=== PATIENT | female | born 1950 | race Caucasian/White ===

== ENCOUNTER → 2019-06-22 09:07 | Outpatient (BNVA) | payer MEDICARE, MEDICAID, SELFPAY | PROVIDERS: Family Provider Family Medicine; PCP Family Medicine; Visit Provider Family Medicine | DX: E11.9 Type 2 diabetes mellitus without complications (principal); Z79.4 Long term (current) use of insulin; F17.219 Nicotine dependence, cigarettes, with unspecified nicotine-induced disorders | CPT/HCPCS: 83036 ==

== ENCOUNTER 2019-10-02 18:15 | Emergency (ER) | payer MEDICARE, MEDICAID, SELFPAY ==
[2019-10-02 18:29] VITALS: BP 148/85; PULSE 93; RESP 14; TEMP 35.6; O2SAT 97; BMI 35.2
[2019-10-02] MEDS: insulin glargine 100 units/1 mL 80 UNIT SUBCUT (19:47)
[2019-10-02 20:09] VITALS: BP 144/82; PULSE 81; RESP 17; O2SAT 97
--- NOTE | 2019-10-02 23:28 | ED_ITS ---
HPI - General Adult General: Chief complaint: General Medical Stated complaint: needs insulin Time Seen by Provider: 10/02/19 18:51 History of Present Illness: HPI narrative: 68-year-old diabetic female. She presents stating that she is out of her Lantus insulin, and would like a refill, as she was unable to get her physician to call her in one this weekend. She has been asymptomatic. She states her blood sugar this morning was 200. Later in the day was in the 130s. Onset (ago): day(s) Severity: mild Quality: other Associated symptoms: Reports no associated symptoms; Deny dyspnea, nausea or vomiting Review of Systems Const: Denies: fever(s) or chills Resp: Denies: dyspnea or productive cough GI: Denies: abdominal pain, nausea or vomiting [facility] ED PFSH: Medical History (Updated 10/02/19 @ 19:27 by Bebeto Pascal DO) Bicuspid aortic valve COPD (chronic obstructive pulmonary disease) CVA (cerebral vascular accident) DDD (degenerative disc disease) Edema Endocarditis Essential hypertension Gait abnormality History of myocardial infarction Hyperlipidemia Hyperparathyroidism Hypothyroidism Migraine Obesity Schizoaffective disorder SOB (shortness of breath) Tobacco abuse Type 2 diabetes mellitus, with long-term current use of insulin Surgical History S/P angioplasty with stent S/P appendectomy S/P lumpectomy of breast S/P tonsillectomy Family History Father CAD (coronary artery disease) Cancer Mother CAD (coronary artery disease) Sister Cancer Other Diabetes Social History Smoking and tobacco status: current every day smoker cigarettes Packs smoked per day: 0.50 Alcohol intake: never Lives independently: Yes Marital status: Current occupational status: disabled Current gender identity: Female Physical Exam Const: GENERAL APPEARANCE: well developed ORIENTATION/CONSCIOUSNESS: Yes oriented to person, Yes oriented to place and Yes oriented to time HENMT: COMMON NORMALS: normocephalic, external ears normal and Normal external nose present HEAD & SCALP: normocephalic FACE & SINUS: normal facial exam NOSE: Normal external nose present and No nasal discharge present EXTERNAL EAR: Yes external ears normal MOUTH: tongue normal THROAT: posterior oropharynx normal; no peritonsillar mass Eye: COMMON NORMALS: Equal, round and reactive pupils present, EOMs intact bilaterally and conjunctivae normal EYELID: eyelids normal CONJUNCTIVA: Yes conjunctivae normal PUPIL: Yes Equal, round and reactive pupils present Neck/C-Spine: COMMON NORMALS: full ROM GENERAL: No tracheal deviation Chest: COMMONS NORMALS: normal inspection of the chest Resp: COMMON NORMALS: clear to auscultation bilaterally EFFORT & INSPECTION: No tachypneic, No respiratory distress, No retractions, No uses accessory muscles and No tracheal deviation AUSCULTATION: clear to auscultation bilaterally, no rhonchi, no wheezes and lung sounds not diminished Cardio: COMMON NORMALS: regular rate and regular rhythm RATE: regular rate RHYTHM: regular rhythm HEART SOUNDS: no murmurs PERIPHERAL PULSES: radial pulses present GI: INSPECTION: No abdominal distension AUSCULTATION: No Hyperactive bowel sounds present and No Hypoactive bowel sounds present Neuro: SENSORIUM/ORIENTATION: Yes oriented to person, Yes oriented to place and Yes oriented to time Psych: COMMON NORMALS: mental status grossly normal Skin: COMMON NORMALS: no rashes or lesions noted GENERAL SKIN EXAM: no rashes or lesions noted Course Vital Signs: Vital signs: Vital Signs Temperature 96.0 F L 10/02/19 18:29 Pulse Rate 81 10/02/19 20:09 Respiratory Rate 17 10/02/19 20:09 Blood Pressure 144/82 10/02/19 20:09 Pulse Oximetry 97 10/02/19 20:09 Discharge Plan Discharge Patient Disposition: Home, Self-Care Clinical Impression: Type 2 diabetes mellitus, with long-term current use of insulin Qualifiers: Diabetes mellitus complication status: without complication Qualified Code(s): E11.9 - Type 2 diabetes mellitus without complications Condition: Stable Prescriptions: New Lantus Solostar U-100 Insulin 100 unit/mL (3 mL) insulin pen 80 unit SUBCUT DAILY Qty: 15 RF: 1 No Action nitroglycerin [Nitrostat] 0.4 mg tablet, sublingual 0.4 mg SUBLINGUAL Q5M PRNRF: 0 insulin lispro [Humalog U-100 Insulin] 100 unit/mL solution 15 unit SUBCUT TID RF: 0 metformin 500 mg tablet extended release 24 hr 500 mg PO BID Qty: 60 RF: 1 (DME) diabetic shoes Qty: 1 RF: 0 metoprolol tartrate 25 mg tablet 25 mg PO BID Qty: 60 RF: 3 clopidogrel 75 mg tablet 75 mg PO QDAY Qty: 30 RF: 3 levothyroxine 125 mcg capsule 125 mcg PO QDAY Qty: 30 RF: 3 isosorbide mononitrate 30 mg tablet extended release 24 hr 30 mg PO QAM Qty: 30 RF: 3 furosemide 40 mg tablet 40 mg PO QAM Qty: 30 RF: 3 prednisone 20 mg tablet 20 mg PO DAILY 5 Days Qty: 5 RF: 0 aspirin [Adult Low Dose Aspirin] 81 mg tablet,delayed release (DR/EC) 81 mg PO QDAY Qty: 30 RF: 5 rosuvastatin [Crestor] 40 mg tablet 40 mg PO DAILY Qty: 90 RF: 0 (DME) blood sugar diagnostic [Accu-Chek Alley Plus test strp] Strip See Rx Instructions .ROUTE .MEDSUPPLY Qty: 100 RF: 2 amlodipine 5 mg tablet 5 mg PO QDAY Qty: 30 RF: 1 Lantus Solostar U-100 Insulin 100 unit/mL (3 mL) insulin pen 68 unit SUBCUT DAILY Qty: 10 RF: 0 (DME) pen needle, diabetic [Ultra Thin Pen Needle] 32 gauge x 5/32 needle See Rx Instructions .ROUTE .MEDSUPPLY Qty: 200 RF: 0 sertraline [Zoloft] 100 mg tablet 200 mg PO .HS Qty: 60 RF: 1 Victoza 2-Georges 0.6 mg/0.1 mL (18 mg/3 mL) pen injector 1.8 mg SUBCUT DAILY Qty: 6 RF: 1 lisinopril 20 mg tablet 20 mg PO QDAY Qty: 90 RF: 0 pregabalin [Lyrica] 25 mg capsule 25 mg PO BID Qty: 60 RF: 0 Referrals: Blanca Maya DO [Physician] - Luciana Espinoza PA [Primary Care Provider] - Discharge Diet: Diabetic Discharge Activity: Resume usual activity Patient Instructions: Type 2 Diabetes Discharge Date/Time: 10/02/19 20:10 Coding Level of Care Code ED Care Support Representative for Josemanuelg Haritha
== END 2019-10-02 20:10 | disposition home or self-care (01) ==
PROVIDERS: Emergency Provider Emergency Medicine; PCP Physician Assistant
DX: E11.9 Type 2 diabetes mellitus without complications (principal); Z79.4 Long term (current) use of insulin; Z79.02 Long term (current) use of antithrombotics/antiplatelets; Z79.82 Long term (current) use of aspirin; J44.9 Chronic obstructive pulmonary disease, unspecified; Z86.73 Personal history of transient ischemic attack (TIA), and cerebral infarction without residual deficits; I10 Essential (primary) hypertension; I25.2 Old myocardial infarction; E78.5 Hyperlipidemia, unspecified; F17.210 Nicotine dependence, cigarettes, uncomplicated
CPT/HCPCS: 12345; 96372; 99282; J1815

== ENCOUNTER → 2019-10-11 10:12 | Outpatient (BNVA) | payer MEDICARE, MEDICAID, SELFPAY | PROVIDERS: PCP Physician Assistant; Referring Provider Family Medicine; Visit Provider Podiatrist Foot & Ankle Surgery | DX: M20.42 Other hammer toe(s) (acquired), left foot (principal); M21.42 Flat foot [pes planus] (acquired), left foot; L97.522 Non-pressure chronic ulcer of other part of left foot with fat layer exposed; B35.1 Tinea unguium; E11.69 Type 2 diabetes mellitus with other specified complication; M20.41 Other hammer toe(s) (acquired), right foot; E11.42 Type 2 diabetes mellitus with diabetic polyneuropathy; L60.3 Nail dystrophy; I73.9 Peripheral vascular disease, unspecified | CPT/HCPCS: 73630 ==

== ENCOUNTER 2019-10-25 08:39 | Outpatient (CLI) | payer MEDICARE, MEDICAID, SELFPAY ==
--- NOTE | 2019-10-25 08:57 | CT_ITS ---
WS: [id number] CTA scan of the head and neck. Additional two-dimensional coronal and sagittal reconstruction along w ith MIP images was performed. 10/25/2019 Clinical Data: TIA, HX OF CVA Comparison: CTA of the head and neck, 08/19/2017. DLP: 2008.[address] scans at [facility] use at least one of these dose optimization techniques: automat ed exposure control; mA and/or kV adjustment per patient size (includes targeted exams where dose is matched to clinical indication); or iterative reconstruction. Findings: The common carotid arteries bifurcate normally into the internal carotid arteries. The vertebral ed forrest are normal. There is no lymphadenopathy within the neck. The intracerebral circulation shows jolene t the internal carotid arteries bifurcate into the anterior and middle cerebral arteries. The basilar arterial system is normal. No aneurysms are seen. The [place] is intact. There is no prevertebral soft tissue swelling. The bones of the cervical spine and skull demonstrate no erosions. There is osteoarthritic change at the C4-C6 level. The intraorbital contents, paranasal sinuses, internal auditory canals and sella turcica are normal. 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 There is moderate ventricular dilatation without shift. No recent infarct or he morrhage is seen. The parotid glands are normal. The parapharyngeal areas are unremarkable. The laryn x is symmetrical. The thyroid gland enhancement of the right lobe and absence of the left lobe. CT/CT angio headneck* [id number] Impression: 1. No change in the normal intracranial arterial circulation of the neck and he ad. 2. 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 3. Absent left thyroid gland.
[2019-10-25] MEDS: iodixanol 320 mg/mL 100mL Btl IV (09:24)
== END 2019-10-25 08:40 | disposition home or self-care (01) ==
LOC: RADWPI 08:45
PROVIDERS: Family Provider Physician Assistant; PCP Physician Assistant; Visit Provider Physician Assistant
DX: G45.9 Transient cerebral ischemic attack, unspecified (principal); Z86.73 Personal history of transient ischemic attack (TIA), and cerebral infarction without residual deficits; E89.0 Postprocedural hypothyroidism
CPT/HCPCS: 70496; 70498; Q9967

== ENCOUNTER 2019-11-11 08:06 | Outpatient (CLI) | payer MEDICARE, MEDICAID, SELFPAY ==
--- NOTE | 2019-11-11 08:10 | CT_ITS ---
WS: [id number] CT CHEST WITH INTRAVENOUS CONTRAST HISTORY: PULMONARY NODULE TECHNIQUE: Contiguous 5 mm axial imaging performed on the thorax. Coronal and sagittal reformats are submitted. All CT scans at [facility] use at least one of these dose optimization techniq ues: automated exposure control; mA and/or kV adjustment per patient size (includes targeted exams wh ere dose is matched to clinical indication); or iterative reconstruction. CONTRAST: Visipaque 320; 95 mL IV. DLP: 987.01 mGycm COMPARISON: 07/11/2014 Lungs and central airway: Diffuse mild interstitial thickening and reticulation noted bilaterally. Be nign granuloma LEFT lower lobe. No suspicious masses. Pleura: Normal. No pleural effusion. Heart and pericardium: Normal size heart. No pericardial effusion. Mediastinum and umesh: No mediastinum or hilar adenopathy. Vessels: Mild atherosclerosis aorta. Normal sized pulmonary arteries. Chest wall and lower neck: 5 mm nodule RIGHT thyroid is stable. Upper abdomen: Mild hepatic steatosis. Hypointense nodule measuring 8 mm in the spleen is stable. Lob ulated LEFT adrenal mass of low-attenuation measures 2.0 cm and also stable. Parapelvic cyst upper po rtion of the LEFT kidney. Osseous structures: Mild increase in thoracic kyphosis. Mild anterior wedging of T3. CT/CT chest w con* [id number] IMPRESSION: 1. Stable mild interstitial lung disease since 2014 and benign LEFT lower lobe granuloma. 2. Stable RIGHT thyroid nodule. 3. Stable 2 cm mass in the LEFT adrenal gland.
[2019-11-11] MEDS: iodixanol 320 mg/mL 100mL Btl IV (08:28)
== END 2019-11-11 08:07 | disposition home or self-care (01) ==
PROVIDERS: Family Provider Physician Assistant; PCP Physician Assistant; Visit Provider Physician Assistant
DX: R91.1 Solitary pulmonary nodule (principal); E04.1 Nontoxic single thyroid nodule; E27.8 Other specified disorders of adrenal gland; J84.9 Interstitial pulmonary disease, unspecified
CPT/HCPCS: 71260; Q9967

== ENCOUNTER 2019-12-21 14:43 | Emergency (ER) | payer MEDICARE, MEDICAID, SELFPAY ==
[2019-12-21 14:54] VITALS: BP 127/74; PULSE 59; RESP 18; TEMP 37.1; O2SAT 98; BMI 33.5
--- NOTE | 2019-12-21 14:58 | ED_ITS ---
HPI - Weakness General: Chief complaint: Weakness Stated complaint: possible stroke symptoms Time Seen by Provider: 12/21/19 14:53 Source: patient Mode of arrival: ambulatory Limitations: no limitations History of Present Illness: HPI Narrative: Emily is a 69-year-old female brought in to the hospital for being drowsy and confused. The patient was believed to have woken up this way. Her route inspector who comes in and looks in on her in her home stated she has been confused and drowsy throughout most of the day. Patient denies any chest pain, shortness of breath, abdominal pain, diarrhea, headache or neck pain, fever, cough, shortness of breath, urinary symptoms or other complaints. When asked again she does admit to vomiting but states she vomited 3 times last week and twice this week. Patient overall has not a good historian and does not offer any further information. Associated symptoms: Reports nausea and vomiting; Denies chest pain, chills, confusion, melena, diaphoresis, dysuria, easy bruising, fever(s), headache(s) or syncope Review of Systems Const: Denies: fever(s), chills, body aches, fatigue, malaise or diaphoresis Eyes: Denies: change in vision, blurry vision, photophobia, eye discomfort, eye discharge or eye redness ENMT: Denies: throat pain, odynophagia, hoarseness, swelling of lips/tongue, ear or mastoid pain, ear discharge, change in hearing or nasal discharge Card: Denies: chest pain, palpitations, irregular heart rhythm, edema, lightheadedness, syncope, pre-syncope, dyspnea on exertion or orthopnea Resp: Denies: dyspnea, productive cough, non-productive cough, wheezing, hemoptysis or chest congestion GI: Reports: nausea and vomiting; Denies: abdominal pain, hematemesis, coffee ground emesis, heartburn, diarrhea, constipation, GI cramping, hematochezia or melena : Denies: flank pain, dysuria, urinary frequency, urinary urgency or hematuria Musc: Denies: neck pain, back pain, extremity pain, extremity swelling, joint pain, joint swelling, joint redness, joint warmth or joint stiffness Skin/Breast: Denies: rash, pruritus, erythema or skin tenderness Neuro: Denies: headache(s), numbness in extremities, weakness in extremities, sensory changes, lack of coordination, difficulty walking, dizziness, vertigo, confusion, Slurred speech present or seizure-like activity Riley/Lymph: Denies: easy bruising, easy bleeding, petechiae, purpura or enlarged lymph nodes All/Imm: Denies: urticaria, throat swelling, tongue swelling, facial swelling or acute wheezing PFSH ED PFSH: Medical History (Updated 12/21/19 @ 19:25 by Tatyana Jeong) Bicuspid aortic valve COPD (chronic obstructive pulmonary disease) CVA (cerebral vascular accident) DDD (degenerative disc disease) Edema Endocarditis Essential hypertension Gait abnormality History of myocardial infarction Hyperlipidemia Hyperparathyroidism Hypothyroidism Migraine Obesity Schizoaffective disorder SOB (shortness of breath) Tobacco abuse Type 2 diabetes mellitus, with long-term current use of insulin Surgical History S/P angioplasty with stent S/P appendectomy S/P lumpectomy of breast S/P tonsillectomy Family History Father CAD (coronary artery disease) Cancer Mother CAD (coronary artery disease) Sister Cancer Other Diabetes Social History Smoking and tobacco status: current every day smoker cigarettes Packs smoked per day: 0.50 Alcohol intake: never Lives independently: Yes Marital status: Current occupational status: disabled Current gender identity: Female Physical Exam Const: COMMON NORMALS: no acute distress, no limitations, healthy appearing and well nourished GENERAL APPEARANCE: cooperative, well kempt and well developed ORIENTATION/CONSCIOUSNESS: Yes awake, Yes oriented to person and Yes oriented to place; not oriented to time HENMT: COMMON NORMALS: normocephalic, atraumatic, external ears normal, EAC's normal and Normal external nose present HEAD & SCALP: normal to inspection, normocephalic and atraumatic FACE & SINUS: normal facial exam and face symmetric NOSE: Normal external nose present and Normal nares present EXTERNAL EAR: Yes external ears normal EXTERNAL AUDITORY CANAL: EAC's normal MOUTH: Normal oral and palatal mucosa present, lip normal and tongue normal Eye: COMMON NORMALS: Equal, round and reactive pupils present and conjunctivae normal GENERAL EYE: appearance normal, both eyes and all related structures ALIGNMENT: Yes alignment normal PERIORBITAL: periorbital findings normal EYELID: eyelids normal CONJUNCTIVA: Yes conjunctivae normal SCLERA: sclerae normal PUPIL: Yes Equal, round and reactive pupils present Neck/C-Spine: COMMON NORMALS: full ROM, no lymphadenopathy, supple, no meningeal signs and no JVD GENERAL: Yes normal visual inspection and Yes trachea midline Chest: COMMONS NORMALS: normal inspection of the chest and normal palpation of entire chest wall Resp: COMMON NORMALS: normal respiratory effort, No retractions, No use of accessory muscles and clear to auscultation bilaterally EFFORT & INSPECTION: Yes able to speak in complete sentences and Yes symmetric chest movement AUSCULTATION: clear to auscultation bilaterally, no crackles, no rales, no rhonchi and no wheezes Cardio: COMMON NORMALS: no JVD, regular rate, regular rhythm, S1 normal heart sound present and S2 normal heart sound present RATE: regular rate RHYTHM: regular rhythm HEART SOUNDS: S1 normal heart sound present, S2 normal heart sound present, no click, no gallops, no murmurs, no rubs and abnormal split S2 GI: COMMON NORMALS: Soft to palpation and No hepatosplenomegaly present PALPATION: Yes Soft to palpation, No Tenderness to palpation present (GI), No Guarding due to palpation present (GI), No Rigid due to palpation, Yes No hepatosplenomegaly present, No Hernia present, No Palpable mass present and No Pulsatile mass present : COMMON NORMALS: Yes no CVA tenderness BLADDER/KIDNEY EXAM: Yes no CVA tenderness EXTERNAL FEMALE EXAM: No Hernia present Back/Pelvis: COMMON NORMALS: no CVA tenderness, thoracic and lumbar spine normal to inspection, no thoracic nor lumbar tenderness and thoraco-lumbar ROM normal Extremity: COMMON NORMALS: normal to inspection, full ROM, capillary refill normal, no joint enlargement, no clubbing, cyanosis or edema and no calf tenderness Neuro: COMMON NORMALS: CN's II-XII intact bilaterally, moves all extremities, no focal motor deficits and no sensory deficits noted SENSORIUM/ORIENTATION: Yes oriented to person, Yes oriented to place and No oriented to time MENINGEAL SIGNS: Yes no meningeal signs SPEECH: speech normal Psych: COMMON NORMALS: mental status grossly normal, Normal thought process present, cooperative, normal affect, speech normal and activity/motor behavior normal APPEARANCE: Yes well kempt SPEECH: Yes normal speech THOUGHT PROCESS: Normal thought process present Skin: COMMON NORMALS: no rashes or lesions noted, turgor normal, no jaundice, no petechiae and no mottling GENERAL SKIN EXAM: no rashes or lesions noted and turgor normal Course Vital Signs: Vital signs: Vital Signs Temperature 98.7 F 12/21/19 14:54 Pulse Rate 62 12/21/19 21:22 Respiratory Rate 18 12/21/19 21:22 Blood Pressure 91/57 12/21/19 21:22 Pulse Oximetry 90 12/21/19 21:22 MDM - Weakness MDM Narrative: Medical decision making narrative: The patient has remained normoglycemic since being treated for her blood sugar. She is eaten many small snacks here and kept her blood sugar up with this. She declines admission. There are no sulfonylureas to cause her blood sugar to be continuing to go low. There is been a mixup with her medications and it does not sound like the patient is taking medications as she should be. I spoke with Dr. Espinoza who agrees to have her seen in the office in the morning and will review her diabetic medicines at that time. Until that time the patient is going to refrain from using anything for her diabetes. 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 Espinoza plans on talking with her about that at that visit. 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 I made the patient aware of all these findings but at this time she declines admission and wants to be discharged. Lab Data: Labs: Lab Results 12/21/19 12/21/19 12/21/19 Range/Units 15:10 15:10 15:10 WBC 12.4 H (4.0-10.0) 10^3/ uL RBC 4.97 (4.1-5.3) 10^6/u L Hgb 15.1 (11.5-15.3) g/dL Hct 45.0 (37.0-47.0) % MCV 90.5 (81-99) fL MCH 30.4 (28.0-34.0) pg MCHC 33.6 (30.0-36.0) g/dL RDW 13.1 (12.1-15.1) % Plt Count 225 (130-400) 10^3/c mm MPV 10.6 H (7.4-10.4) fL Neut % (Auto) 79.5 % Lymph % (Auto) 15.6 % [place] % (Auto) 4.4 % Eos % (Auto) 0.0 % Baso % (Auto) 0.2 % Neut # (Auto) 9.87 H (1.8-7.7) 10^3/u L Lymph # (Auto) 1.9 (0.8-4.8) 10^3/u L [place] # (Auto) 0.6 (0.2-0.9) 10^3/u L Eos # (Auto) 0.0 (0.0-0.8) 10^3/u L Baso # (Auto) 0.0 (0.0-0.1) 10^3/u L Nucleated RBC % (a uto) 0 % Nucleated RBCs # 0.0 /100WBC PT (12.1-14.9) SECO NDS INR (0.8-1.2) Specimen Type Sample Site ABG pH (7.35-7.45) ABG pCO2 (35-45) mmHg ABG pO2 (80.0-100.0) mmH g ABG HCO3 (22-26) mmol/L ABG Base Excess (-2.0-2.0) mmol/ L Shabbir Test Hematocrit (37-47) % O2 Delivery Device FiO2 % Counselling Psychologist ID Sodium 138 (136-145) mmol/L Potassium 4.2 (3.5-5.1) mmol/L Chloride 100 (98-107) mmol/L Carbon Dioxide 27 (22-29) mmol/L Anion Gap 15.2 (5-19) BUN 23 (8-23) mg/dL Creatinine 1.3 H (0.5-0.9) mg/dL GFR Calculation 40.9 L (90-130) mL/min Glucose 46 L (65-115) mg/dL POC Glucose (70-110) mg/dL Calculated Osmolal ity 280 L (285-295) mOsm/k g Lactic Acid (0.5-2.2) mmol/L Calcium 9.8 (8.5-10.5) mg/dL Magnesium 1.7 (1.7-2.3) mg/dL Total Bilirubin 0.4 (0.15-1.2) mg/dL AST 22 (0-32) U/L ALT 23 (0-33) U/L Alkaline Phosphata se 107 H (35-105) IU/L Ammonia 14 (11-51) umol/L Creatine Kinase 126 (26-192) U/L Troponin T Baselin e (0-10) ng/L Troponin T 120 Min te-moak (0-10) ng/L Delta Troponin T (0-10) ABS# Total Protein 6.9 (6.6-8.7) g/dL Albumin 4.2 (3.5-5.2) g/dL Globulin 2.7 (1.3-4.6) g/dL Lipase 100 H (13-60) U/L TSH 2.07 (0.27-4.20) uIU/ mL Urine Color (Yellow) Urine Appearance (CLEAR) Urine pH (5-7) Ur Specific Gravit y (1.005-1.030) Urine Protein (Negative) Urine Glucose (UA) (Normal) Urine Ketones (Negative) Urine Blood (Negative) Urine Nitrate (Negative) Urine Bilirubin (Negative) Urine Urobilinogen (Negative) mg/dL Ur Leukocyte Minerva ase (Negative) Urine RBC (0-2) /hpf Urine WBC (0-5) /hpf Ur Squamous Epith Cells (0-5) /hpf Amorphous Sediment Urine Bacteria (NONE) /hpf Urine Opiates Scre en (Negative) ng/mL Ur Barbiturates Sc reen (Negative) ng/mL Ur Phencyclidine S crn (Negative) ng/mL Ur Amphetamines Sc reen (Negative) ng/mL U Benzodiazepines Scrn (Negative) ng/mL Urine Cocaine Scre en (Negative) ng/mL U Marijuana (THC) Screen (Negative) ng/mL Serum Ketones Negative (Negative) Influenza Type A A g (Negative) Influenza Type B A g (Negative) 12/21/19 12/21/19 12/21/19 Range/Units 15:10 15:10 15:10 WBC (4.0-10.0) 10^3/ uL RBC (4.1-5.3) 10^6/u L Hgb (11.5-15.3) g/dL Hct (37.0-47.0) % MCV (81-99) fL MCH (28.0-34.0) pg MCHC (30.0-36.0) g/dL RDW (12.1-15.1) % Plt Count (130-400) 10^3/c mm MPV (7.4-10.4) fL Neut % (Auto) % Lymph % (Auto) % [place] % (Auto) % Eos % (Auto) % Baso % (Auto) % Neut # (Auto) (1.8-7.7) 10^3/u L Lymph # (Auto) (0.8-4.8) 10^3/u L [place] # (Auto) (0.2-0.9) 10^3/u L Eos # (Auto) (0.0-0.8) 10^3/u L Baso # (Auto) (0.0-0.1) 10^3/u L Nucleated RBC % (a uto) % Nucleated RBCs # /100WBC PT 12.80 (12.1-14.9) SECO NDS INR 0.94 (0.8-1.2) Specimen Type Sample Site ABG pH (7.35-7.45) ABG pCO2 (35-45) mmHg ABG pO2 (80.0-100.0) mmH g ABG HCO3 (22-26) mmol/L ABG Base Excess (-2.0-2.0) mmol/ L Shabbir Test Hematocrit (37-47) % O2 Delivery Device FiO2 % Counselling Psychologist ID Sodium (136-145) mmol/L Potassium (3.5-5.1) mmol/L Chloride (98-107) mmol/L Carbon Dioxide (22-29) mmol/L Anion Gap (5-19) BUN (8-23) mg/dL Creatinine (0.5-0.9) mg/dL GFR Calculation (90-130) mL/min Glucose (65-115) mg/dL POC Glucose (70-110) mg/dL Calculated Osmolal ity (285-295) mOsm/k g Lactic Acid 1.0 (0.5-2.2) mmol/L Calcium (8.5-10.5) mg/dL Magnesium (1.7-2.3) mg/dL Total Bilirubin (0.15-1.2) mg/dL AST (0-32) U/L ALT (0-33) U/L Alkaline Phosphata se (35-105) IU/L Ammonia (11-51) umol/L Creatine Kinase (26-192) U/L Troponin T Baselin e 21 H (0-10) ng/L Troponin T 120 Min te-moak (0-10) ng/L Delta Troponin T (0-10) ABS# Total Protein (6.6-8.7) g/dL Albumin (3.5-5.2) g/dL Globulin (1.3-4.6) g/dL Lipase (13-60) U/L TSH (0.27-4.20) uIU/ mL Urine Color (Yellow) Urine Appearance (CLEAR) Urine pH (5-7) Ur Specific Gravit y (1.005-1.030) Urine Protein (Negative) Urine Glucose (UA) (Normal) Urine Ketones (Negative) Urine Blood (Negative) Urine Nitrate (Negative) Urine Bilirubin (Negative) Urine Urobilinogen (Negative) mg/dL Ur Leukocyte Minerva ase (Negative) Urine RBC (0-2) /hpf Urine WBC (0-5) /hpf Ur Squamous Epith Cells (0-5) /hpf Amorphous Sediment Urine Bacteria (NONE) /hpf Urine Opiates Scre en (Negative) ng/mL Ur Barbiturates Sc reen (Negative) ng/mL Ur Phencyclidine S crn (Negative) ng/mL Ur Amphetamines Sc reen (Negative) ng/mL U Benzodiazepines Scrn (Negative) ng/mL Urine Cocaine Scre en (Negative) ng/mL U Marijuana (THC) Screen (Negative) ng/mL Serum Ketones (Negative) Influenza Type A A g (Negative) Influenza Type B A g (Negative) 12/21/19 12/21/19 12/21/19 Range/Units 15:31 15:57 16:45 WBC (4.0-10.0) 10^3/ uL RBC (4.1-5.3) 10^6/u L Hgb (11.5-15.3) g/dL Hct (37.0-47.0) % MCV (81-99) fL MCH (28.0-34.0) pg MCHC (30.0-36.0) g/dL RDW (12.1-15.1) % Plt Count (130-400) 10^3/c mm MPV (7.4-10.4) fL Neut % (Auto) % Lymph % (Auto) % [place] % (Auto) % Eos % (Auto) % Baso % (Auto) % Neut # (Auto) (1.8-7.7) 10^3/u L Lymph # (Auto) (0.8-4.8) 10^3/u L [place] # (Auto) (0.2-0.9) 10^3/u L Eos # (Auto) (0.0-0.8) 10^3/u L Baso # (Auto) (0.0-0.1) 10^3/u L Nucleated RBC % (a uto) % Nucleated RBCs # /100WBC PT (12.1-14.9) SECO NDS INR (0.8-1.2) Specimen Type Arterial Sample Site Brachial, right ABG pH 7.44 (7.35-7.45) ABG pCO2 38.8 (35-45) mmHg ABG pO2 65.4 L (80.0-100.0) mmH g ABG HCO3 26.2 H (22-26) mmol/L ABG Base Excess 2.0 (-2.0-2.0) mmol/ L Shabbir Test Pos Hematocrit 47.2 H (37-47) % O2 Delivery Device Room air FiO2 21.0 % Counselling Psychologist ID Jlg Sodium (136-145) mmol/L Potassium (3.5-5.1) mmol/L Chloride (98-107) mmol/L Carbon Dioxide (22-29) mmol/L Anion Gap (5-19) BUN (8-23) mg/dL Creatinine (0.5-0.9) mg/dL GFR Calculation (90-130) mL/min Glucose (65-115) mg/dL POC Glucose 39 104 (70-110) mg/dL Calculated Osmolal ity (285-295) mOsm/k g Lactic Acid (0.5-2.2) mmol/L Calcium (8.5-10.5) mg/dL Magnesium (1.7-2.3) mg/dL Total Bilirubin (0.15-1.2) mg/dL AST (0-32) U/L ALT (0-33) U/L Alkaline Phosphata se (35-105) IU/L Ammonia (11-51) umol/L Creatine Kinase (26-192) U/L Troponin T Baselin e (0-10) ng/L Troponin T 120 Min te-moak (0-10) ng/L Delta Troponin T (0-10) ABS# Total Protein (6.6-8.7) g/dL Albumin (3.5-5.2) g/dL Globulin (1.3-4.6) g/dL Lipase (13-60) U/L TSH (0.27-4.20) uIU/ mL Urine Color (Yellow) Urine Appearance (CLEAR) Urine pH (5-7) Ur Specific Gravit y (1.005-1.030) Urine Protein (Negative) Urine Glucose (UA) (Normal) Urine Ketones (Negative) Urine Blood (Negative) Urine Nitrate (Negative) Urine Bilirubin (Negative) Urine Urobilinogen (Negative) mg/dL Ur Leukocyte Minerva ase (Negative) Urine RBC (0-2) /hpf Urine WBC (0-5) /hpf Ur Squamous Epith Cells (0-5) /hpf Amorphous Sediment Urine Bacteria (NONE) /hpf Urine Opiates Scre en (Negative) ng/mL Ur Barbiturates Sc reen (Negative) ng/mL Ur Phencyclidine S crn (Negative) ng/mL Ur Amphetamines Sc reen (Negative) ng/mL U Benzodiazepines Scrn (Negative) ng/mL Urine Cocaine Scre en (Negative) ng/mL U Marijuana (THC) Screen (Negative) ng/mL Serum Ketones (Negative) Influenza Type A A g (Negative) Influenza Type B A g (Negative) 12/21/19 12/21/19 12/21/19 Range/Units 17:03 17:19 17:44 WBC (4.0-10.0) 10^3/ uL RBC (4.1-5.3) 10^6/u L Hgb (11.5-15.3) g/dL Hct (37.0-47.0) % MCV (81-99) fL MCH (28.0-34.0) pg MCHC (30.0-36.0) g/dL RDW (12.1-15.1) % Plt Count (130-400) 10^3/c mm MPV (7.4-10.4) fL Neut % (Auto) % Lymph % (Auto) % [place] % (Auto) % Eos % (Auto) % Baso % (Auto) % Neut # (Auto) (1.8-7.7) 10^3/u L Lymph # (Auto) (0.8-4.8) 10^3/u L [place] # (Auto) (0.2-0.9) 10^3/u L Eos # (Auto) (0.0-0.8) 10^3/u L Baso # (Auto) (0.0-0.1) 10^3/u L Nucleated RBC % (a uto) % Nucleated RBCs # /100WBC PT (12.1-14.9) SECO NDS INR (0.8-1.2) Specimen Type Sample Site ABG pH (7.35-7.45) ABG pCO2 (35-45) mmHg ABG pO2 (80.0-100.0) mmH g ABG HCO3 (22-26) mmol/L ABG Base Excess (-2.0-2.0) mmol/ L Shabbir Test Hematocrit (37-47) % O2 Delivery Device FiO2 % Counselling Psychologist ID Sodium (136-145) mmol/L Potassium (3.5-5.1) mmol/L Chloride (98-107) mmol/L Carbon Dioxide (22-29) mmol/L Anion Gap (5-19) BUN (8-23) mg/dL Creatinine (0.5-0.9) mg/dL GFR Calculation (90-130) mL/min Glucose (65-115) mg/dL POC Glucose (70-110) mg/dL Calculated Osmolal ity (285-295) mOsm/k g Lactic Acid (0.5-2.2) mmol/L Calcium (8.5-10.5) mg/dL Magnesium (1.7-2.3) mg/dL Total Bilirubin (0.15-1.2) mg/dL AST (0-32) U/L ALT (0-33) U/L Alkaline Phosphata se (35-105) IU/L Ammonia (11-51) umol/L Creatine Kinase (26-192) U/L Troponin T Baselin e (0-10) ng/L Troponin T 120 Min te-moak 21.87 H (0-10) ng/L Delta Troponin T 0.87 (0-10) ABS# Total Protein (6.6-8.7) g/dL Albumin (3.5-5.2) g/dL Globulin (1.3-4.6) g/dL Lipase (13-60) U/L TSH (0.27-4.20) uIU/ mL Urine Color Straw (Yellow) Urine Appearance Clear (CLEAR) Urine pH 7.0 (5-7) Ur Specific Gravit y 1.005 (1.005-1.030) Urine Protein Neg (Negative) Urine Glucose (UA) Norm (Normal) Urine Ketones Negative (Negative) Urine Blood Neg (Negative) Urine Nitrate Negative (Negative) Urine Bilirubin Neg (Negative) Urine Urobilinogen Norm (Negative) mg/dL Ur Leukocyte Minerva ase Negative (Negative) Urine RBC None (0-2) /hpf Urine WBC None (0-5) /hpf Ur Squamous Epith Cells 0-4 H (0-5) /hpf Amorphous Sediment Not Reportable Urine Bacteria Trace (NONE) /hpf Urine Opiates Scre en (Negative) ng/mL Ur Barbiturates Sc reen (Negative) ng/mL Ur Phencyclidine S crn (Negative) ng/mL Ur Amphetamines Sc reen (Negative) ng/mL U Benzodiazepines Scrn (Negative) ng/mL Urine Cocaine Scre en (Negative) ng/mL U Marijuana (THC) Screen (Negative) ng/mL Serum Ketones (Negative) Influenza Type A A g Negative (Negative) Influenza Type B A g Negative (Negative) 12/21/19 12/21/19 12/21/19 Range/Units 17:44 17:52 19:05 WBC (4.0-10.0) 10^3/ uL RBC (4.1-5.3) 10^6/u L Hgb (11.5-15.3) g/dL Hct (37.0-47.0) % MCV (81-99) fL MCH (28.0-34.0) pg MCHC (30.0-36.0) g/dL RDW (12.1-15.1) % Plt Count (130-400) 10^3/c mm MPV (7.4-10.4) fL Neut % (Auto) % Lymph % (Auto) % [place] % (Auto) % Eos % (Auto) % Baso % (Auto) % Neut # (Auto) (1.8-7.7) 10^3/u L Lymph # (Auto) (0.8-4.8) 10^3/u L [place] # (Auto) (0.2-0.9) 10^3/u L Eos # (Auto) (0.0-0.8) 10^3/u L Baso # (Auto) (0.0-0.1) 10^3/u L Nucleated RBC % (a uto) % Nucleated RBCs # /100WBC PT (12.1-14.9) SECO NDS INR (0.8-1.2) Specimen Type Sample Site ABG pH (7.35-7.45) ABG pCO2 (35-45) mmHg ABG pO2 (80.0-100.0) mmH g ABG HCO3 (22-26) mmol/L ABG Base Excess (-2.0-2.0) mmol/ L Shabbir Test Hematocrit (37-47) % O2 Delivery Device FiO2 % Counselling Psychologist ID Sodium (136-145) mmol/L Potassium (3.5-5.1) mmol/L Chloride (98-107) mmol/L Carbon Dioxide (22-29) mmol/L Anion Gap (5-19) BUN (8-23) mg/dL Creatinine (0.5-0.9) mg/dL GFR Calculation (90-130) mL/min Glucose (65-115) mg/dL POC Glucose 108 147 (70-110) mg/dL Calculated Osmolal ity (285-295) mOsm/k g Lactic Acid (0.5-2.2) mmol/L Calcium (8.5-10.5) mg/dL Magnesium (1.7-2.3) mg/dL Total Bilirubin (0.15-1.2) mg/dL AST (0-32) U/L ALT (0-33) U/L Alkaline Phosphata se (35-105) IU/L Ammonia (11-51) umol/L Creatine Kinase (26-192) U/L Troponin T Baselin e (0-10) ng/L Troponin T 120 Min te-moak (0-10) ng/L Delta Troponin T (0-10) ABS# Total Protein (6.6-8.7) g/dL Albumin (3.5-5.2) g/dL Globulin (1.3-4.6) g/dL Lipase (13-60) U/L TSH (0.27-4.20) uIU/ mL Urine Color (Yellow) Urine Appearance (CLEAR) Urine pH (5-7) Ur Specific Gravit y (1.005-1.030) Urine Protein (Negative) Urine Glucose (UA) (Normal) Urine Ketones (Negative) Urine Blood (Negative) Urine Nitrate (Negative) Urine Bilirubin (Negative) Urine Urobilinogen (Negative) mg/dL Ur Leukocyte Minerva ase (Negative) Urine RBC (0-2) /hpf Urine WBC (0-5) /hpf Ur Squamous Epith Cells (0-5) /hpf Amorphous Sediment Urine Bacteria (NONE) /hpf Urine Opiates Scre en Negative (Negative) ng/mL Ur Barbiturates Sc reen Negative (Negative) ng/mL Ur Phencyclidine S crn Negative (Negative) ng/mL Ur Amphetamines Sc reen Negative (Negative) ng/mL U Benzodiazepines Scrn Negative (Negative) ng/mL Urine Cocaine Scre en Negative (Negative) ng/mL U Marijuana (THC) Screen Negative (Negative) ng/mL Serum Ketones (Negative) Influenza Type A A g (Negative) Influenza Type B A g (Negative) Imaging Data^: CXR: Attestation: I personally reviewed and interpreted this imaging study as follows: My impression: No acute cardiopulmonary finding CT Head: Radiologist's impression: [place] [address] CT Scan Report Signed Patient: Emily Little Unit #: [id number] : [id number] Age/Sex: 69 / F ADM Date: 12/21/19 Loc: ER Room/Bed: Attending Dr: Ordering Provider/Ordering MD: Tatyana Jeong DO Date of Service: 12/21/19 Procedure(s): CT head wo con* [id number] Accession Number(s): [id number] Report Number: [id number] PROCEDURE INFORMATION: Exam: CT Head Without Contrast Exam date and time: 12/21/2019 4:09 PM Age: 69 years old Clinical indication: Altered mental status/memory loss TECHNIQUE: Imaging protocol: Computed tomography of the head without contrast. Radiation optimization: All CT scans at this facility use at least one of these dose optimization techniques: automated exposure control; mA and/or kV adjustment per patient size (includes targeted exams where dose is matched to clinical indication); or iterative reconstruction. COMPARISON: CT angio headneck* [id number] 10/25/2019 9:13 AM RADIATION DOSE METRICS: Total DLP (mGy-cm): 879.43 FINDINGS: Brain: There are mild periventricular and subcortical lucencies consistent with chronic microvascular ischemic changes. The martines-white differentiation is maintained. No hemorrhage. No edema. Ventricles: Normal. No ventriculomegaly. Bones/joints: Unremarkable. No acute fracture. Sinuses: Visualized sinuses are unremarkable. No fluid levels. Mastoid air cells: Visualized mastoid air cells are well aerated. Orbits: Bilateral cataract surgery. Soft tissues: Unremarkable. CT/CT head wo con* [id number] IMPRESSION: No acute intracranial abnormality. Chronic microvascular ischemic changes. Radiation Dose CTDIVOL = (mGy): DLP = 879.43 (mGy-cm) Dictated By: eDnys Pang MD Signed By: Denys Pang MD Signed Date/Time: 12/21/191709 DD/ 07 CT Abd/Pel: Attestation: I personally reviewed and interpreted this imaging study as follows: Radiologist's impression: [address] [address] [address] Scan Report Signed Patient: Emily Little Unit #: [id number] : 1950 Age/Sex: 69 / F ADM Date: 12/21/19 Loc: ER Room/Bed: Attending Dr: Ordering Provider/Ordering MD: Tatyana Jeong DO Date of Service: 12/21/19 Procedure(s): CT abdomen pelvis w con* [id number] Accession Number(s): [id number] Report Number: [id number] PROCEDURE INFORMATION: Exam: CT Abdomen And Pelvis With Contrast Exam date and time: 12/21/2019 4:09 PM Age: 69 years old Clinical indication: Abdominal tenderness; Additional info: Abdominal pain TECHNIQUE: Imaging protocol: Computed tomography of the abdomen and pelvis with intravenous contrast. Radiation optimization: All CT scans at this facility use at least one of these dose optimization techniques: automated exposure control; mA and/or kV adjustment per patient size (includes targeted exams where dose is matched to clinical indication); or iterative reconstruction. Contrast material: VISI 320; Contrast volume: 95 ml; Contrast route: INTRAVENOUS (IV); COMPARISON: CT Abdomen/Pelvis [facility] [address] 10/18/2015 3:05 PM RADIATION DOSE METRICS: Total DLP (mGy-cm): 754.57 FINDINGS: Lungs: Calcified granuloma at the left lung base. Liver: Normal. No mass. Gallbladder and bile ducts: Normal. No calcified stones. No ductal dilation. Pancreas: Normal. No ductal dilation. Spleen: Normal. No splenomegaly. Adrenals: 1.8 cm left adrenal adenoma. 3.1 cm cyst of the left kidney in the midpole region. Kidneys and ureters: See Adrenals finding. Stomach and bowel: Unremarkable. No obstruction. No mucosal thickening. Appendix: No evidence of appendicitis. Intraperitoneal space: Unremarkable. No free air. No significant fluid collection. Vasculature: Atherosclerotic calcification of the abdominal aorta and bilateral iliac vessels. Lymph nodes: Unremarkable. No enlarged lymph nodes. Bladder: Unremarkable as visualized. Reproductive: Right ovary is enlarged and measures 5.5 x 4.2 cm. Bones/joints: Degenerative changes of the spine. Soft tissues: Unremarkable. CT/CT abdomen pelvis w con* [id number] IMPRESSION: Right ovary is enlarged measuring 5.5 x 4.2 cm. Given patient's post menopausal status, Neoplasm cannot be excluded. Ultrasound of the pelvis is recommended. Low-density lesion in the pancreatic head measures 1.7 cm, previously 1.6 cm. MRI with and without contrast can be obtained for further evaluation and characterization of the lesion. Radiation Dose CTDIVOL = (mGy): DLP = 754.57 (mGy-cm) Dictated By: Denys Pang MD Signed By: Denys Pang MD Signed Date/Time: 12/21/191726 DD/ 24 US: My impression: Tech interpretation -right ovarian mass but no evidence of torsion. No free fluid. No other acute abnormalities. Please see formal report. EKG Data^: EKG 1: Attestation: I personally reviewed and interpreted this EKG as follows: EKG interpretation date: 12/21/19 EKG interpretation time: 14:58 Interpretation: Sinus bradycardia 54 beats a minute, LVH, nonspecific ST and T wave changes. Left axis deviation, no blocks, normal intervals. Discharge Plan Discharge Patient Disposition: Home Clinical Impression: Hypoglycemia, Ovarian mass, right, Pancreatic mass Condition: Stable Prescriptions: No Action nitroglycerin [Nitrostat] 0.4 mg tablet, sublingual 0.4 mg SUBLINGUAL Q5M PRN (Reason: Chest Pain) RF: 0 insulin lispro [Humalog U-100 Insulin] 100 unit/mL solution 20 unit SUBCUT TID RF: 0 metformin 500 mg tablet extended release 24 hr 500 mg PO BID Qty: 60 RF: 1 (DME) diabetic shoes Qty: 1 RF: 0 metoprolol tartrate 25 mg tablet 25 mg PO BID Qty: 60 RF: 3 isosorbide mononitrate 30 mg tablet extended release 24 hr 30 mg PO QAM Qty: 30 RF: 3 furosemide 40 mg tablet 40 mg PO QAM Qty: 30 RF: 3 trazodone 50 mg tablet 50 mg PO BEDTIME RF: 0 albuterol sulfate 2.5 mg /3 mL (0.083 %) solution for nebulization 2.5 mg INHALATION Q4H PRN (Reason: shortness of breath or wheezing) Qty: 90 RF: 0 rosuvastatin [Crestor] 40 mg tablet 40 mg PO DAILY Qty: 90 RF: 0 (DME) blood sugar diagnostic [Accu-Chek Alley Plus test strp] Strip See Rx Instructions .ROUTE .MEDSUPPLY Qty: 100 RF: 2 (DME) pen needle, diabetic [Ultra Thin Pen Needle] 32 gauge x 5/32 needle See Rx Instructions .ROUTE .MEDSUPPLY Qty: 200 RF: 0 Victoza 2-Georges 0.6 mg/0.1 mL (18 mg/3 mL) pen injector 1.8 mg SUBCUT DAILY Qty: 6 RF: 1 (DME) Diabetic Shoes See Rx Instructions .ROUTE .MEDSUPPLY Qty: 1 RF: 0 aspirin 325 mg Tablet 325 mg PO DAILY RF: 0 lisinopril 20 mg tablet 20 mg PO DAILY RF: 0 Zoloft 100 mg tablet 200 mg PO BEDTIME RF: 0 clopidogrel 75 mg tablet 75 mg PO DAILY RF: 0 amlodipine 5 mg tablet 5 mg PO DAILY RF: 0 Lantus Solostar U-100 Insulin 100 unit/mL (3 mL) insulin pen 80 unit SUBCUT BEDTIME RF: 0 levothyroxine 125 mcg capsule 125 mcg PO DAILY RF: 0 Discharge Orders: Discharge Order (Routine); Ordered 12/21/19 Ordered By: Tatyana Jeong Referrals: Luciana Espinoza PA [Primary Care Provider] - 1-3 days (Call first thing in the morning for an appointment to be seen by Luciana Espinoza. I have reviewed your findings and case tonkristan and she will see you in the office tomorrow for recheck. Call first thing in the morning for your appointment.) Discharge Diet: Advance as tolerated Discharge Activity: Increase activity as tolerated Patient Instructions: Ovarian Cyst (ED), Diabetic Hypoglycemia (ED) Activity Restrictions/Additional Instructions: Please return to the ER immediately for any of the signs or symptoms listed on your discharge instruction sheets, worsening/changing of your symptoms, you are not getting better as quickly as expected, or for ANY other cause or concerns. Do not take any insulin or any of your diabetic meds tonight. Call first thing in the morning for an appointment to be seen by Luciana Espinoza and she will review all of your diabetic medications with you. Once she has given you a plan on how to begin taking them again you can begin those medications. Eat frequent small meals and be certain to follow-up with Dr. Espinoza tomorrow. You can also discuss at that time of the mass found on your pancreas as well as your right ovarian mass. If you have any problems or feel like your blood sugar is getting low aga in please return to the ER immediately for recheck. Discharge Date/Time: 12/21/19 21:39 Coding Level of Care Code ED Product Development Actuary for Chg Fwd Exam Comprehensive
--- NOTE | 2019-12-21 14:59 | XRR_ITS ---
PROCEDURE INFORMATION: Exam: XR Chest, 1 View Exam date and time: 12/21/2019 3:19 PM Age: 69 years old Clinical indication: Other: AMS, stroke symptoms; Additional info: AMS, stroke symptoms, weakness TECHNIQUE: Imaging protocol: XR of the chest Views: 1 view. COMPARISON: CT chest w con* [id number] 11/11/2019 8:26 AM FINDINGS: Lungs: Calcified granuloma at the left lung base. Pleural space: Unremarkable. No pleural effusion. No pneumothorax. Heart/Mediastinum: Unremarkable. No cardiomegaly. Vasculature: Atherosclerotic calcification of the aortic arch. Bones/joints: Degenerative changes of the spine. XR/XR chest 1V portable [id number] IMPRESSION: No acute abnormality.
--- NOTE | 2019-12-21 15:01 | CTR_ITS ---
PROCEDURE INFORMATION: Exam: CT Head Without Contrast Exam date and time: 12/21/2019 4:09 PM Age: 69 years old Clinical indication: Altered mental status/memory loss TECHNIQUE: Imaging protocol: Computed tomography of the head without contrast. Radiation optimization: All CT scans at this facility use at least one of these dose optimization techniques: automated exposure control; mA and/or kV adjustment per patient size (includes targeted exams where dose is matched to clinical indication); or iterative reconstruction. COMPARISON: CT angio headneck* [id number] 10/25/2019 9:13 AM RADIATION DOSE METRICS: Total DLP (mGy-cm): 879.43 FINDINGS: Brain: There are mild periventricular and subcortical lucencies consistent with chronic microvascular ischemic changes. The martines-white differentiation is maintained. No hemorrhage. No edema. Ventricles: Normal. No ventriculomegaly. Bones/joints: Unremarkable. No acute fracture. Sinuses: Visualized sinuses are unremarkable. No fluid levels. Mastoid air cells: Visualized mastoid air cells are well aerated. Orbits: Bilateral cataract surgery. Soft tissues: Unremarkable. CT/CT head wo con* [id number] IMPRESSION: No acute intracranial abnormality. Chronic microvascular ischemic changes. Radiation Dose CTDIVOL = (mGy): DLP = 879.43 (mGy-cm)
--- NOTE | 2019-12-21 15:01 | CTR_ITS ---
PROCEDURE INFORMATION: Exam: CT Abdomen And Pelvis With Contrast Exam date and time: 12/21/2019 4:09 PM Age: 69 years old Clinical indication: Abdominal tenderness; Additional info: Abdominal pain TECHNIQUE: Imaging protocol: Computed tomography of the abdomen and pelvis with intravenous contrast. Radiation optimization: All CT scans at this facility use at least one of these dose optimization techniques: automated exposure control; mA and/or kV adjustment per patient size (includes targeted exams where dose is matched to clinical indication); or iterative reconstruction. Contrast material: VISI 320; Contrast volume: 95 ml; Contrast route: INTRAVENOUS (IV); COMPARISON: CT Abdomen/Pelvis o [id number] 10/18/2015 3:05 PM RADIATION DOSE METRICS: Total DLP (mGy-cm): 754.57 FINDINGS: Lungs: Calcified granuloma at the left lung base. Liver: Normal. No mass. Gallbladder and bile ducts: Normal. No calcified stones. No ductal dilation. Pancreas: Normal. No ductal dilation. Spleen: Normal. No splenomegaly. Adrenals: 1.8 cm left adrenal adenoma. 3.1 cm cyst of the left kidney in the midpole region. Kidneys and ureters: See Adrenals finding. Stomach and bowel: Unremarkable. No obstruction. No mucosal thickening. Appendix: No evidence of appendicitis. Intraperitoneal space: Unremarkable. No free air. No significant fluid collection. Vasculature: Atherosclerotic calcification of the abdominal aorta and bilateral iliac vessels. Lymph nodes: Unremarkable. No enlarged lymph nodes. Bladder: Unremarkable as visualized. Reproductive: Right ovary is enlarged and measures 5.5 x 4.2 cm. Bones/joints: Degenerative changes of the spine. Soft tissues: Unremarkable. CT/CT abdomen pelvis w con* [id number] IMPRESSION: Right ovary is enlarged measuring 5.5 x 4.2 cm. Given patient's post menopausal status, Neoplasm cannot be excluded. Ultrasound of the pelvis is recommended. Low-density lesion in the pancreatic head measures 1.7 cm, previously 1.6 cm. MRI with and without contrast can be obtained for further evaluation and characterization of the lesion. Radiation Dose CTDIVOL = (mGy): DLP = 754.57 (mGy-cm)
--- NOTE | 2019-12-21 15:01 | ECG_ITS ---
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 Measurements Intervals [place] Rate: 57 P: 44 OK: 137 QRS: -30 QRSD: 114 T: -15 QT: 450 QTc: 440 Interpretive Statements SINUS BRADYCARDIA BORDERLINE LEFT AXIS DEVIATION [QRS AXIS < -20] LEFT VENTRICULAR HYPERTROPHY AND ST-T CHANGE [VOLTAGE CRITERIA PLUS ST/T ABNORMALITY] Compared to ECG 07/26/2018 21:23:21 Sinus rhythm no longer present ST (T wave) deviation still present Electronically Signed On 12-21-2019 19:54:07 CDT by Teresa Melendez M.D. [id number]
[2019-12-21 15:27] LABS: Basophils % 0.2 %; Hemoglobin 15.1 g/dL (11.5-15.3); Lymphocytes # 1.9 10^3/uL (0.8-4.8); Lymphocytes % 15.6 %; Mean Corpuscular HGB Conc 33.6 g/dL (30.0-36.0); Mean Corpuscular Hemoglobin 30.4 pg (28.0-34.0); Mean Corpuscular Volume 90.5 fL (81-99); Mean Platelet Volume 10.6 fL (7.4-10.4); Monocytes # 0.6 10^3/uL (0.2-0.9); Monocytes % 4.4 %; Neutrophils # 9.87 10^3/uL (1.8-7.7); Neutrophils % 79.5 %; Nucleated Red Blood Cells % 0 %; Platelet Count 225 10^3/cmm (130-400); Red Blood Count 4.97 10^6/uL (4.1-5.3); Red Cell Distribution Width 13.1 % (12.1-15.1); White Blood Count 12.4 10^3/uL (4.0-10.0)
[2019-12-21 15:42] LABS: INR 0.94 (0.8-1.2)
[2019-12-21 15:44] LABS: ABG PCO2 38.8 mmHg (35-45); ABG PH Result 7.44 (7.35-7.45); Arterial Blood Gas Hematocrit 47.2 % (37-47); Blood Gas Allen Test Pos; Blood Gas Sample Site Brachial, right; Blood Gas Sample Type Arterial; HCO3 ABG 26.2 mmol/L (22-26); Oxygen Device ROOM AIR; PO2 ABG 65.4 mmHg (80.0-100.0)
[2019-12-21 15:47] LABS: Ammonia 14 umol/L (11-51); Troponin(5th) Baseline 21 ng/L (0-10)
[2019-12-21 15:54] LABS: Alanine Aminotransferase 23 U/L (0-33); Albumin Level 4.2 g/dL (3.5-5.2); Alkaline Phosphatase 107 IU/L (35-105); Anion Gap 15.2 (5-19); Aspartate Amino Transferase 22 U/L (0-32); Blood Urea Nitrogen 23 mg/dL (8-23); Calcium 9.8 mg/dL (8.5-10.5); Carbon Dioxide 27 mmol/L (22-29); Chloride 100 mmol/L (98-107); Creatine Phosphokinase 126 U/L (26-192); Globulin 2.7 g/dL (1.3-4.6); Glomerular Filtration Rate 40.9 mL/min (90-130); Glucose 46 mg/dL (65-115); Lipase 100 U/L (13-60); Magnesium 1.7 mg/dL (1.7-2.3); Osmolality Calculated 280 mOsm/kg (285-295); Potassium 4.2 mmol/L (3.5-5.1); Sodium 138 mmol/L (136-145); Thyroid Stimulating Hormone 2.07 uIU/mL (0.27-4.20); Total Bilirubin 0.4 mg/dL (0.15-1.2); Total Protein 6.9 g/dL (6.6-8.7)
[2019-12-21 16:01] LABS: Glucose Point of Care 39 mg/dL (70-110)
[2019-12-21] MEDS: dextrose 50% syringe 50 mL IVP (16:01)
[2019-12-21] MEDS: ondansetron 2 mg/ML SDV 2 mL 4 MG IVP (16:01)
[2019-12-21] MEDS: sodium chloride 0.9% 1,000 ML 100 ML IV (16:08)
[2019-12-21 16:22] LABS: Ketone (Acetest) Serum Negative (Negative)
[2019-12-21] MEDS: iodixanol 320 mg/mL 100mL Btl IV (16:31)
[2019-12-21 17:01] LABS: Glucose Point of Care 104 mg/dL (70-110)
--- NOTE | 2019-12-21 17:01 | ECG_ITS ---
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 Measurements Intervals [place] Rate: 61 P: 76 CT: 141 QRS: -36 QRSD: 104 T: -20 QT: 436 QTc: 440 Interpretive Statements SINUS RHYTHM LEFT AXIS DEVIATION [QRS AXIS < -30] PATTERN CONSISTENT WITH PULMONARY DISEASE INCOMPLETE RIGHT BUNDLE BRANCH BLOCK [90+ ms QRS DURATION, TERMINAL R IN V1/V2, 40+ ms S IN I/aVL/V4/V5/V6] LEFT VENTRICULAR HYPERTROPHY AND ST-T CHANGE [VOLTAGE CRITERIA PLUS ST/T ABNORMALITY] Compared to ECG 12/21/2019 14:58:09 Incomplete right bundle-branch block now present Sinus bradycardia no longer present ST (T wave) deviation still present Electronically Signed On 12-21-2019 20:10:09 CDT by Teresa Melendez M.D. [id number]
[2019-12-21 17:15] VITALS: BP 118/65; PULSE 61; RESP 18; O2SAT 90
--- NOTE | 2019-12-21 17:35 | US_ITS ---
WS: [id number] Pelvic ultrasound, 12/21/2019 Clinical Data: Pain Comparison: None. Findings: The uterus measures 5.74 cm x 3.2 cm x 3.6 cm. The left ovary measures 2.0 cm x 2.0 cm x 2.4 cm with no cysts or masses. The right ovary measures 5.2 cm x 4.8 cm x 3.5 cm with no cysts or masses. US/US pelvic complete* [id number] Impression: Negative pelvic ultrasound.
[2019-12-21 17:40] LABS: Troponin 5 2HR 21.87 ng/L (0-10); Troponin 5 2HR Delta 0.87 ABS# (0-10)
[2019-12-21 17:49] LABS: Influenza A by IFA Negative (Negative); Influenza B by IFA Negative (Negative)
[2019-12-21 17:55] LABS: Glucose Point of Care 108 mg/dL (70-110)
[2019-12-21 18:05] LABS: Amphetamines Screen Urine Negative (Negative); Barbiturates Screen Urine Negative (Negative); Benzodiazepines Screen Urine Negative (Negative); Cocaine Screen Urine Negative (Negative); Opiate Screen Urine Negative (Negative); PCP Screen Urine Negative (Negative); THC Screen Urine Negative (Negative)
[2019-12-21 18:07] LABS: Add Urine Culture? No; Bacteria Urine TRACE /hpf; Bilirubin Urine Neg (Negative); Blood Urine Neg (Negative); Glucose Urine UA Norm (Normal); Ketones Urine Negative (Negative); Leukocyte Esterase Urine Negative (Negative); Nitrate Urine Negative (Negative); Protein Urine Neg (Negative); Specific Gravity, Urine 1.005 (1.005-1.030); Squamous Epithelial Cell Urine 0-4 /hpf (0-5); Urine Appearance Clear (CLEAR); Urine Color Straw (Yellow); Urobilinogen Urine Norm (Negative)
[2019-12-21 19:09] LABS: Glucose Point of Care 147 mg/dL (70-110)
[2019-12-21 21:22] VITALS: BP 91/57; PULSE 62; RESP 18; O2SAT 90
== END 2019-12-21 21:39 | disposition home or self-care (01) ==
PROVIDERS: Emergency Provider Emergency Medicine; PCP Physician Assistant
DX: E16.2 Hypoglycemia, unspecified (principal); N83.9 Noninflammatory disorder of ovary, fallopian tube and broad ligament, unspecified; K86.9 Disease of pancreas, unspecified; Z79.4 Long term (current) use of insulin; Z79.82 Long term (current) use of aspirin; Z79.02 Long term (current) use of antithrombotics/antiplatelets; J44.9 Chronic obstructive pulmonary disease, unspecified; Z86.73 Personal history of transient ischemic attack (TIA), and cerebral infarction without residual deficits; I10 Essential (primary) hypertension; E78.5 Hyperlipidemia, unspecified; I25.2 Old myocardial infarction; E11.9 Type 2 diabetes mellitus without complications; F17.210 Nicotine dependence, cigarettes, uncomplicated; Z79.899 Other long term (current) drug therapy
CPT/HCPCS: 12345; 36415; 36416; 36600; 70450; 71045; 74177; 76856; 80053; 80306; 81001; 82009; 82140; 82550; 82803; 82962; 83605; 83690; 83735; 84443; 84484; 85025; 85610; 87040; 87804; 93005; 96361; 96374; 96375; 99283; 99284; J2405; J7030; Q9967

== ENCOUNTER 2019-12-23 15:04 | Emergency (ER) | payer MEDICARE, MEDICAID, SELFPAY ==
[2019-12-23 15:08] VITALS: BP 128/78; PULSE 63; RESP 18; O2SAT 96; BMI 27.8
--- NOTE | 2019-12-23 15:13 | ECG_ITS ---
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 Measurements Intervals [place] Rate: 64 P: 54 UT: 133 QRS: -39 QRSD: 114 T: 75 QT: 422 QTc: 437 Interpretive Statements SINUS RHYTHM LEFT AXIS DEVIATION [QRS AXIS < -30] PATTERN CONSISTENT WITH PULMONARY DISEASE LEFT VENTRICULAR HYPERTROPHY AND ST-T CHANGE [VOLTAGE CRITERIA PLUS ST/T ABNORMALITY] Compared to ECG 12/21/2019 17:18:59 Incomplete right bundle-branch block no longer present ST (T wave) deviation still present Electronically Signed On 12-24-2019 16:19:59 CDT by Harshad Dorsey M.D. [id number]
--- NOTE | 2019-12-23 15:13 | CT_ITS ---
WS: [id number] CT HEAD TECHNIQUE: Noncontrast CT of the head obtained from the skullbase to the vertex. CLINICAL INFORMATION: Symptoms of Acute Stroke COMPARISON: December 21, 2019 DLP: [address] scans at [facility] use at least one of these dose optimization techniques: automat ed exposure control; mA and/or kV adjustment per patient size (includes targeted exams where dose is matched to clinical indication); or iterative reconstruction. FINDINGS: No evidence of intracranial hemorrhage or mass effect. Ventricular system and basal cisterns are talbert nt. Mild small vessel changes with moderate parenchymal volume loss. Chronic lacunar infarct right th alamus. No extra-axial fluid collections. No evidence of mass or mass effect. Normal martines-white diffe rentiation. Paranasal sinuses and mastoid air cells are well aerated. .Normal visualized soft tissues. CT/CT head wo con* [id number] IMPRESSION: 1. No evidence of intracranial hemorrhage or mass effect. 2. Moderate small vessel changes moderate parenchymal volume loss. 3. Chronic lacunar infarct right thalamus. 4. No acute intracranial findings. Notified Tony Montero DO at 12/23/2019 3:23 PM.
--- NOTE | 2019-12-23 15:22 | ED_ITS ---
HPI - Weakness General: Chief complaint: Weakness Stated complaint: STROKE LIKE SYMPTOMS Time Seen by Provider: 12/23/19 15:08 History of Present Illness: HPI Narrative: 69-year-old female presents emergency room with generalized weakness right arm tremor. She has difficulty getting any history from she is confused and disoriented she does not know how she got here or why she is here she is able to tell me she lives at home with her daughters. She has a severe tremor of her right arm however with distraction or instruction she will able to stop the tremor. She has a history of diabetes mellitus and had had a stroke recently. Review of Systems General: Reports: ROS unobtainable due to medical condition PFSH ED PFSH: Medical History Bicuspid aortic valve COPD (chronic obstructive pulmonary disease) CVA (cerebral vascular accident) DDD (degenerative disc disease) Edema Endocarditis Essential hypertension Gait abnormality History of myocardial infarction Hyperlipidemia Hyperparathyroidism Hypothyroidism Migraine Obesity Schizoaffective disorder SOB (shortness of breath) Tobacco abuse Type 2 diabetes mellitus, with long-term current use of insulin Surgical History S/P angioplasty with stent S/P appendectomy S/P lumpectomy of breast S/P tonsillectomy Family History Father CAD (coronary artery disease) Cancer Mother CAD (coronary artery disease) Sister Cancer Other Diabetes Social History Smoking and tobacco status: current every day smoker cigarettes Packs smoked per day: 0.50 Alcohol intake: never Lives independently: Yes Marital status: Current occupational status: disabled Current gender identity: Female Physical Exam Const: COMMON NORMALS: no acute distress GENERAL APPEARANCE: cooperative and comfortable HENMT: COMMON NORMALS: normocephalic, atraumatic, hearing grossly normal bilaterally, external ears normal, EAC's normal, TM's normal bilaterally, Normal nasal mucous membranes and turbinates present, moist oral mucous membranes and oropharynx normal HEAD & SCALP: normocephalic and atraumatic NOSE: Normal nasal mucous membranes and turbinates present EXTERNAL EAR: Yes external ears normal EXTERNAL AUDITORY CANAL: EAC's normal TYMPANIC MEMBRANE: TM's normal bilaterally Eye: COMMON NORMALS: Equal, round and reactive pupils present, EOMs intact bilaterally, conjunctivae normal and no scleral icterus CONJUNCTIVA: Yes conjunctivae normal PUPIL: Yes Equal, round and reactive pupils present Neck/C-Spine: COMMON NORMALS: full ROM, no lymphadenopathy, supple and no JVD Lymph: LYMPHATIC: no lymphadenopathy noted and no lymphedema noted Resp: COMMON NORMALS: normal respiratory effort, No retractions, No use of accessory muscles and clear to auscultation bilaterally AUSCULTATION: clear to auscultation bilaterally Cardio: COMMON NORMALS: no JVD, regular rate, regular rhythm and No murmurs present (Cardio) RATE: regular rate RHYTHM: regular rhythm GI: COMMON NORMALS: Soft to palpation and No hepatosplenomegaly present AUSCULTATION: Yes normoactive bowel sounds PALPATION: Yes Soft to palpation, No Tenderness to palpation present (GI), No Guarding due to palpation present (GI) and Yes No hepatosplenomegaly present Extremity: COMMON NORMALS: normal to inspection, capillary refill normal, no clubbing, cyanosis or edema, no calf tenderness and no pedal edema Neuro: OTHER: Right arm tremor no other focal neurologic deficits are noted. Skin: COMMON NORMALS: no rashes or lesions noted GENERAL SKIN EXAM: no rashes or lesions noted Course Vital Signs: Vital signs: Vital Signs Temperature 97.4 F L 12/23/19 17:29 Pulse Rate 84 12/23/19 17:29 Respiratory Rate 20 H 12/23/19 17:29 Blood Pressure 103/60 12/23/19 17:29 Pulse Oximetry 96 12/23/19 17:29 MDM - Weakness MDM Narrative: Medical decision making narrative: Patient has known deficits the tremor has stopped by the time the work-up was completed she is sitting upright talking and she would like to go home she denies any other problems did encourage her to increase her fluid intake based on her BUN/creatinine slightly elevated follow-up with primary care doctor next week if she has any further problems she should return to the emergency room. Lab Data: Labs: Lab Results 12/23/19 12/23/19 12/23/19 Range/Units 15:46 15:46 15:46 WBC 16.1 H (4.0-10.0) 10^3/ uL RBC 4.94 (4.1-5.3) 10^6/u L Hgb 14.9 (11.5-15.3) g/dL Hct 44.7 (37.0-47.0) % MCV 90.5 (81-99) fL MCH 30.2 (28.0-34.0) pg MCHC 33.3 (30.0-36.0) g/dL RDW 13.0 (12.1-15.1) % Plt Count 208 (130-400) 10^3/c mm MPV 10.9 H (7.4-10.4) fL Neut % (Auto) 82.4 % Lymph % (Auto) 11.9 % [place] % (Auto) 4.9 % Eos % (Auto) 0.0 % Baso % (Auto) 0.3 % Neut # (Auto) 13.23 H (1.8-7.7) 10^3/u L Lymph # (Auto) 1.9 (0.8-4.8) 10^3/u L [place] # (Auto) 0.8 (0.2-0.9) 10^3/u L Eos # (Auto) 0.0 (0.0-0.8) 10^3/u L Baso # (Auto) 0.1 (0.0-0.1) 10^3/u L Nucleated RBC % (a uto) 0 % Nucleated RBCs # 0.0 /100WBC PT 13.00 (12.1-14.9) SECO NDS INR 0.96 (0.8-1.2) APTT 30.7 (23.9-36.7) SECO NDS Sodium 140 (136-145) mmol/L Potassium 4.5 (3.5-5.1) mmol/L Chloride 98 (98-107) mmol/L Carbon Dioxide 26 (22-29) mmol/L Anion Gap 20.5 H (5-19) BUN 25 H (8-23) mg/dL Creatinine 1.6 H (0.5-0.9) mg/dL GFR Calculation 32.2 L (90-130) mL/min Glucose 161 H (65-115) mg/dL Calculated Osmolal ity 290 (285-295) mOsm/k g Calcium 9.9 (8.5-10.5) mg/dL Total Bilirubin 0.5 (0.15-1.2) mg/dL AST 18 (0-32) U/L ALT 20 (0-33) U/L Alkaline Phosphata se 116 H (35-105) IU/L Total Protein 7.2 (6.6-8.7) g/dL Albumin 4.4 (3.5-5.2) g/dL Globulin 2.8 (1.3-4.6) g/dL Urine Color (Yellow) Urine Appearance (CLEAR) Urine pH (5-7) Ur Specific Gravit y (1.005-1.030) Urine Protein (Negative) Urine Glucose (UA) (Normal) Urine Ketones (Negative) Urine Blood (Negative) Urine Nitrate (Negative) Urine Bilirubin (Negative) Urine Urobilinogen (Negative) mg/dL Ur Leukocyte Minerva ase (Negative) Salicylates < 0.3 L (3-10) mg/dL Urine Opiates Scre en (Negative) ng/mL Acetaminophen < 5.0 L (10-30) ug/mL Ur Barbiturates Sc reen (Negative) ng/mL Ur Phencyclidine S crn (Negative) ng/mL Ur Amphetamines Sc reen (Negative) ng/mL U Benzodiazepines Scrn (Negative) ng/mL Urine Cocaine Scre en (Negative) ng/mL U Marijuana (THC) Screen (Negative) ng/mL Ethyl Alcohol < 10 (0-10) mg/dL 12/23/19 12/23/19 Range/Units 16:19 16:19 WBC (4.0-10.0) 10^3/ uL RBC (4.1-5.3) 10^6/u L Hgb (11.5-15.3) g/dL Hct (37.0-47.0) % MCV (81-99) fL MCH (28.0-34.0) pg MCHC (30.0-36.0) g/dL RDW (12.1-15.1) % Plt Count (130-400) 10^3/c mm MPV (7.4-10.4) fL Neut % (Auto) % Lymph % (Auto) % [place] % (Auto) % Eos % (Auto) % Baso % (Auto) % Neut # (Auto) (1.8-7.7) 10^3/u L Lymph # (Auto) (0.8-4.8) 10^3/u L [place] # (Auto) (0.2-0.9) 10^3/u L Eos # (Auto) (0.0-0.8) 10^3/u L Baso # (Auto) (0.0-0.1) 10^3/u L Nucleated RBC % (a uto) % Nucleated RBCs # /100WBC PT (12.1-14.9) SECO NDS INR (0.8-1.2) APTT (23.9-36.7) SECO NDS Sodium (136-145) mmol/L Potassium (3.5-5.1) mmol/L Chloride (98-107) mmol/L Carbon Dioxide (22-29) mmol/L Anion Gap (5-19) BUN (8-23) mg/dL Creatinine (0.5-0.9) mg/dL GFR Calculation (90-130) mL/min Glucose (65-115) mg/dL Calculated Osmolal ity (285-295) mOsm/k g Calcium (8.5-10.5) mg/dL Total Bilirubin (0.15-1.2) mg/dL AST (0-32) U/L ALT (0-33) U/L Alkaline Phosphata se (35-105) IU/L Total Protein (6.6-8.7) g/dL Albumin (3.5-5.2) g/dL Globulin (1.3-4.6) g/dL Urine Color Yellow (Yellow) Urine Appearance Clear (CLEAR) Urine pH 7 (5-7) Ur Specific Gravit y 1.005 (1.005-1.030) Urine Protein Neg (Negative) Urine Glucose (UA) Norm (Normal) Urine Ketones Negative (Negative) Urine Blood Neg (Negative) Urine Nitrate Negative (Negative) Urine Bilirubin Neg (Negative) Urine Urobilinogen Neg (Negative) mg/dL Ur Leukocyte Minerva ase Negative (Negative) Salicylates (3-10) mg/dL Urine Opiates Scre en Negative (Negative) ng/mL Acetaminophen (10-30) ug/mL Ur Barbiturates Sc reen Negative (Negative) ng/mL Ur Phencyclidine S crn Negative (Negative) ng/mL Ur Amphetamines Sc reen Negative (Negative) ng/mL U Benzodiazepines Scrn Negative (Negative) ng/mL Urine Cocaine Scre en Negative (Negative) ng/mL U Marijuana (THC) Screen Negative (Negative) ng/mL Ethyl Alcohol (0-10) mg/dL Discharge Plan Discharge Patient Disposition: Home Clinical Impression: Anxiety, Schizoaffective disorder Condition: Stable Prescriptions: No Action nitroglycerin [Nitrostat] 0.4 mg tablet, sublingual 0.4 mg SUBLINGUAL Q5M PRN (Reason: Chest Pain) RF: 0 insulin lispro [Humalog U-100 Insulin] 100 unit/mL solution 20 unit SUBCUT TID RF: 0 metformin 500 mg tablet extended release 24 hr 500 mg PO BID Qty: 60 RF: 1 (DME) diabetic shoes Qty: 1 RF: 0 metoprolol tartrate 25 mg tablet 25 mg PO BID Qty: 60 RF: 3 isosorbide mononitrate 30 mg tablet extended release 24 hr 30 mg PO QAM Qty: 30 RF: 3 furosemide 40 mg tablet 40 mg PO QAM Qty: 30 RF: 3 trazodone 50 mg tablet 50 mg PO BEDTIME RF: 0 albuterol sulfate 2.5 mg /3 mL (0.083 %) solution for nebulization 2.5 mg INHALATION Q4H PRN (Reason: shortness of breath or wheezing) Qty: 90 RF: 0 rosuvastatin [Crestor] 40 mg tablet 40 mg PO DAILY Qty: 90 RF: 0 (DME) blood sugar diagnostic [Accu-Chek Alley Plus test strp] Strip See Rx Instructions .ROUTE .MEDSUPPLY Qty: 100 RF: 2 (DME) pen needle, diabetic [Ultra Thin Pen Needle] 32 gauge x 5/32 needle See Rx Instructions .ROUTE .MEDSUPPLY Qty: 200 RF: 0 Victoza 2-Georges 0.6 mg/0.1 mL (18 mg/3 mL) pen injector 1.8 mg SUBCUT DAILY Qty: 6 RF: 1 (DME) Diabetic Shoes See Rx Instructions .ROUTE .MEDSUPPLY Qty: 1 RF: 0 aspirin 325 mg Tablet 325 mg PO DAILY RF: 0 lisinopril 20 mg tablet 20 mg PO DAILY RF: 0 Zoloft 100 mg tablet 200 mg PO BEDTIME RF: 0 clopidogrel 75 mg tablet 75 mg PO DAILY RF: 0 amlodipine 5 mg tablet 5 mg PO DAILY RF: 0 Lantus Solostar U-100 Insulin 100 unit/mL (3 mL) insulin pen 80 unit SUBCUT BEDTIME RF: 0 levothyroxine 125 mcg capsule 125 mcg PO DAILY RF: 0 Discharge Orders: Discharge Order (Routine); Ordered 12/23/19 Ordered By: Tony Montero Referrals: Luciana Espinoza PA [Primary Care Provider] - Discharge Diet: Usual diet Discharge Activity: Increase activity as tolerated Activity Restrictions/Additional Instructions: Follow-up with your primary care doctor as needed Discharge Date/Time: 12/23/19 17:33 Coding Level of Care Code ED Application Packager for Chg Fwd Exam Comprehensive NIH stroke score NIHSS Level Of Consciousness - 1a: 1 Level Of Consciousness Questions - 1b: Neither Correct Level Of Consciousness Commands - 1c: Both Correct Best Gaze - 2: Normal Visual Milligan - 3: No Visual Loss Facial Palsy - 4: Normal Motor Arm Right - 5: No Drift Motor Arm Left - 5: No Drift Motor Leg Right - 6: No Drift Motor Leg Left - 6: No Drift Limb Ataxia - 7: Absent Sensory - 8: Normal Best Language - 9: No Aphasia Dysarthia - 10: Normal Extinction And Inattention - 11: 1 Score Total Score: 4
[2019-12-23 15:55] VITALS: BP 128/78; PULSE 67; RESP 25; TEMP 36.8; O2SAT 95
--- NOTE | 2019-12-23 16:04 | PC.NURSE ---
Dysphagia screening completed and patient passed.
[2019-12-23 16:09] LABS: Basophils # 0.1 10^3/uL (0.0-0.1); Basophils % 0.3 %; Hematocrit 44.7 % (37.0-47.0); Hemoglobin 14.9 g/dL (11.5-15.3); Lymphocytes # 1.9 10^3/uL (0.8-4.8); Lymphocytes % 11.9 %; Mean Corpuscular HGB Conc 33.3 g/dL (30.0-36.0); Mean Corpuscular Hemoglobin 30.2 pg (28.0-34.0); Mean Corpuscular Volume 90.5 fL (81-99); Mean Platelet Volume 10.9 fL (7.4-10.4); Monocytes # 0.8 10^3/uL (0.2-0.9); Monocytes % 4.9 %; Neutrophils # 13.23 10^3/uL (1.8-7.7); Neutrophils % 82.4 %; Nucleated Red Blood Cells % 0 %; Platelet Count 208 10^3/cmm (130-400); Red Blood Count 4.94 10^6/uL (4.1-5.3); White Blood Count 16.1 10^3/uL (4.0-10.0)
[2019-12-23 16:26] VITALS: BP 108/53; PULSE 64; RESP 24; O2SAT 94
[2019-12-23 16:26] LABS: Alanine Aminotransferase 20 U/L (0-33); Albumin Level 4.4 g/dL (3.5-5.2); Alkaline Phosphatase 116 IU/L (35-105); Anion Gap 20.5 (5-19); Aspartate Amino Transferase 18 U/L (0-32); Blood Urea Nitrogen 25 mg/dL (8-23); Calcium 9.9 mg/dL (8.5-10.5); Carbon Dioxide 26 mmol/L (22-29); Chloride 98 mmol/L (98-107); Globulin 2.8 g/dL (1.3-4.6); Glomerular Filtration Rate 32.2 mL/min (90-130); Glucose 161 mg/dL (65-115); Osmolality Calculated 290 mOsm/kg (285-295); Potassium 4.5 mmol/L (3.5-5.1); Sodium 140 mmol/L (136-145); Total Bilirubin 0.5 mg/dL (0.15-1.2); Total Protein 7.2 g/dL (6.6-8.7)
[2019-12-23 16:34] LABS: Add Urine Microscopic? NO
[2019-12-23 16:35] LABS: Acetaminophen < 5.0 ug/mL (10-30); Alcohol Level < 10 mg/dL (0-10); Salicylate < 0.3 mg/dL (3-10)
[2019-12-23 16:37] LABS: Partial Thromboplastin Time 30.7 SECONDS (23.9-36.7)
[2019-12-23 16:49] LABS: Amphetamines Screen Urine Negative (Negative); Barbiturates Screen Urine Negative (Negative); Benzodiazepines Screen Urine Negative (Negative); Cocaine Screen Urine Negative (Negative); Opiate Screen Urine Negative (Negative); PCP Screen Urine Negative (Negative); Specific Gravity, Urine 1.005 (1.005-1.030); THC Screen Urine Negative (Negative); Urine Appearance Clear (CLEAR); Urine Color Yellow (Yellow); pH Urine 7 (5-7)
[2019-12-23 16:50] LABS: Bilirubin Urine Neg (Negative); Blood Urine Neg (Negative); Glucose Urine UA Norm (Normal); Ketones Urine Negative (Negative); Leukocyte Esterase Urine Negative (Negative); Nitrate Urine Negative (Negative); Protein Urine Neg (Negative); Urobilinogen Urine Neg (Negative)
[2019-12-23 17:05] VITALS: BP 103/60; PULSE 62; RESP 24; O2SAT 93
[2019-12-23 17:16] LABS: INR 0.96 (0.8-1.2)
[2019-12-23 17:29] VITALS: BP 103/60; PULSE 84; RESP 20; TEMP 36.3; O2SAT 96
== END 2019-12-23 17:33 | disposition home or self-care (01) ==
PROVIDERS: Emergency Provider Family Medicine; PCP Physician Assistant
DX: F41.9 Anxiety disorder, unspecified (principal); F25.9 Schizoaffective disorder, unspecified; Z79.4 Long term (current) use of insulin; Z79.82 Long term (current) use of aspirin; Z79.02 Long term (current) use of antithrombotics/antiplatelets; F17.210 Nicotine dependence, cigarettes, uncomplicated; J44.9 Chronic obstructive pulmonary disease, unspecified; Z86.73 Personal history of transient ischemic attack (TIA), and cerebral infarction without residual deficits; I10 Essential (primary) hypertension; I25.2 Old myocardial infarction; E78.5 Hyperlipidemia, unspecified; E11.9 Type 2 diabetes mellitus without complications; Z79.899 Other long term (current) drug therapy
CPT/HCPCS: 12345; 36415; 70450; 80053; 80306; 80307; 81003; 85025; 85610; 85730; 93005; 99283; 99284

== ENCOUNTER → 2019-12-29 15:05 | Outpatient (BNVA) | payer MEDICARE, MEDICAID, SELFPAY | PROVIDERS: PCP Physician Assistant; Visit Provider Obstetrics & Gynecology | DX: D39.11 Neoplasm of uncertain behavior of right ovary (principal) | CPT/HCPCS: 86304 ==

== ENCOUNTER 2020-02-09 11:16 | Emergency (ER) | payer MEDICARE, MEDICAID, SELFPAY ==
[2020-02-09 11:17] VITALS: BP 139/91; PULSE 87; RESP 17; TEMP 36.9; O2SAT 100
--- NOTE | 2020-02-09 11:17 | XRR_ITS ---
PROCEDURE INFORMATION: Exam: XR Chest, 1 View Exam date and time: 02/09/2020 11:20 AM Age: 69 years old Clinical indication: Other: Syncope; Patient HX: Elevated blood sugar TECHNIQUE: Imaging protocol: XR of the chest Views: 1 view. COMPARISON: CR XR chest 1V portable [id number] 12/21/2019 3:26 PM FINDINGS: Lungs: There is a circumscribed granuloma in the left lower lobe. This finding measures 8 mm. Comparison to prior examination shows no interval change . No consolidation. Pleural space: Unremarkable. No pleural effusion. No pneumothorax. Heart/Mediastinum: Unremarkable. No cardiomegaly. Bones/joints: Unremarkable. XR/XR chest 1V portable [id number] IMPRESSION: 1. No acute findings. 2. Left lower lobe granuloma
[2020-02-09 11:34] VITALS: BP 150/113; PULSE 86; RESP 17; O2SAT 99
--- NOTE | 2020-02-09 11:37 | W.ED.RECABL ---
HPI - Recheck/Abnormal Lab/Rx General: Chief Complaint: Recheck/Abnormal Lab/Rx Stated Complaint: HIGH BLOOD SUGAR Time Seen by Provider: 02/09/20 11:18 Source: patient Mode of arrival: EMS Limitations: no limitations History of Present Illness: HPI narrative: Patient is a 69-year-old diabetic who presents to the emergency department with complaint of elevated blood sugar for several days. Her blood glucose levels have been running anywhere from the high 200s to the low 500s. She has also had several days of vomiting. She called her primary care provider today and she was advised to come to the emergency department to be evaluated. She denies any fever, chest pain, shortness of breath. She had diarrhea last week but that has resolved now. She denies any urinary symptoms. Review of Systems General: Reports: 10 or more systems reviewed and unremarkable except in HPI and below Const: Denies: fever(s), chills or body aches Eyes: Denies: change in vision or blurry vision ENMT: Denies: throat pain, enlarged tonsils, odynophagia, hoarseness, mouth pain or swelling of lips/tongue Card: Denies: palpitations, irregular heart rhythm, edema or swelling of feet/ankles Resp: Denies: dyspnea, productive cough or non-productive cough GI: Reports: nausea, vomiting and diarrhea (last week); Denies: abdominal pain : Denies: flank pain, difficulty voiding, dysuria, urinary frequency, urinary urgency or urinary hesitancy Musc: Denies: neck pain, back pain or extremity swelling Skin/Breast: Denies: rash, pruritus or erythema Neuro: Denies: headache(s), numbness in extremities or weakness in extremities Endo: Denies: polyuria, polydipsia or tired all the time [facility] ED PFSH: Medical History Bicuspid aortic valve COPD (chronic obstructive pulmonary disease) CVA (cerebral vascular accident) DDD (degenerative disc disease) Edema Endocarditis Essential hypertension Gait abnormality History of myocardial infarction Hyperlipidemia Hyperparathyroidism Hypothyroidism Migraine Obesity Schizoaffective disorder SOB (shortness of breath) Tobacco abuse Type 2 diabetes mellitus, with long-term current use of insulin Surgical History S/P angioplasty with stent S/P appendectomy S/P lumpectomy of breast S/P tonsillectomy Family History Father CAD (coronary artery disease) Cancer Mother CAD (coronary artery disease) Sister Cancer Other Diabetes Social History Smoking and tobacco status: current every day smoker cigarettes Packs smoked per day: 0.50 Alcohol intake: never Lives independently: Yes Marital status: Physical Exam Const: COMMON NORMALS: no acute distress, average body habitus, patient oriented x3, no limitations, healthy appearing, alert and well nourished HENMT: COMMON NORMALS: normocephalic, atraumatic and moist oral mucous membranes HEAD & SCALP: normocephalic and atraumatic Neck/C-Spine: COMMON NORMALS: no meningeal signs and no JVD Resp: COMMON NORMALS: normal respiratory effort, No retractions, No use of accessory muscles, clear to auscultation bilaterally and percussion normal AUSCULTATION: clear to auscultation bilaterally PERCUSSION: percussion normal Cardio: COMMON NORMALS: no JVD, regular rate, regular rhythm, S1 normal heart sound present, S2 normal heart sound present, No gallops present (Cardio), No clicks present (Cardio), No rub (Cardio) and Peripheral pulses 2+ throughout RATE: regular rate RHYTHM: regular rhythm HEART SOUNDS: S1 normal heart sound present, S2 normal heart sound present and Murmur heart sound present PERIPHERAL PULSES: Peripheral pulses 2+ throughout GI: COMMON NORMALS: Normal to inspection, nondistended, normoactive bowel sounds present, Soft to palpation, non-tender, No hepatosplenomegaly present, no masses and no bruits PALPATION: Yes Soft to palpation and Yes No hepatosplenomegaly present Extremity: COMMON NORMALS: normal to inspection, full ROM, capillary refill normal, no calf tenderness and no pedal edema Neuro: COMMON NORMALS: patient oriented x3 SENSORIUM/ORIENTATION: Yes alert MENINGEAL SIGNS: Yes no meningeal signs Skin: COMMON NORMALS: no rashes or lesions noted, no wounds, turgor normal, no jaundice, no petechiae and no mottling GENERAL SKIN EXAM: no rashes or lesions noted and turgor normal Course Reevaluation(s): Reevaluation #1: Discussed her lab and imaging findings with her, negative for acute findings. She is advised that she will need an adjustment of her inulin dose. She is to f/u with her PCP for the adjustment. She voiced understanding and all questions answered. Time: 14:44 Vital Signs: Vital signs: Vital Signs Temperature 98.5 F 02/09/20 11:17 Pulse Rate 86 02/09/20 11:34 Respiratory Rate 17 02/09/20 11:34 Blood Pressure 106/65 02/09/20 13:52 Pulse Oximetry 98 02/09/20 13:52 MDM - Recheck/Abnormal Lab/Rx MDM Narrative: Medical decision making narrative: Patient came to the emergency department because she was concerned about her blood glucose levels being elevated. Evaluation in the emergency department showed nothing acute. She is discharged home to follow-up with her primary care provider for adjustment of antidiabetic medication. Medical Records: Attestation: I reviewed the patient's medical records. Lab Data: Attestation: I reviewed the patient's lab results. Labs: Lab Results 02/09/20 02/09/20 02/09/20 Range/Units 11:47 11:47 13:45 WBC 8.9 (4.0-10.0) 10^3/ uL RBC 4.91 (4.1-5.3) 10^6/u L Hgb 14.9 (11.5-15.3) g/dL Hct 42.9 (37.0-47.0) % MCV 87.4 (81-99) fL MCH 30.3 (28.0-34.0) pg MCHC 34.7 (30.0-36.0) g/dL RDW 12.9 (12.1-15.1) % Plt Count 193 (130-400) 10^3/c mm MPV 10.7 H (7.4-10.4) fL Neut % (Auto) 67.3 % Lymph % (Auto) 25.9 % [place] % (Auto) 6.2 % Eos % (Auto) 0.0 % Baso % (Auto) 0.3 % Neut # (Auto) 5.96 (1.8-7.7) 10^3/u L Lymph # (Auto) 2.3 (0.8-4.8) 10^3/u L [place] # (Auto) 0.6 (0.2-0.9) 10^3/u L Eos # (Auto) 0.0 (0.0-0.8) 10^3/u L Baso # (Auto) 0.0 (0.0-0.1) 10^3/u L Nucleated RBC % (a uto) 0 % Nucleated RBCs # 0.0 /100WBC Sodium 132 L (136-145) mmol/L Potassium 3.7 (3.5-5.1) mmol/L Chloride 93 L (98-107) mmol/L Carbon Dioxide 26 (22-29) mmol/L Anion Gap 16.7 (5-19) BUN 12 (8-23) mg/dL Creatinine 0.9 (0.5-0.9) mg/dL GFR Calculation 62.5 L (90-130) mL/min Glucose 334 H (65-115) mg/dL Calculated Osmolal ity 287 (285-295) mOsm/k g Calcium 10.0 (8.5-10.5) mg/dL Total Bilirubin 0.4 (0.15-1.2) mg/dL AST 14 (0-32) U/L ALT 21 (0-33) U/L Alkaline Phosphata se 150 H (35-105) IU/L Total Protein 7.2 (6.6-8.7) g/dL Albumin 4.4 (3.5-5.2) g/dL Globulin 2.8 (1.3-4.6) g/dL Urine Color Yellow (Yellow) Urine Appearance Sl cloudy A (CLEAR) Urine pH 5 (5-7) Ur Specific Gravit y 1.025 (1.005-1.030) Urine Protein Neg (Negative) Urine Glucose (UA) 2+ (Normal) Urine Ketones Negative (Negative) Urine Blood Neg (Negative) Urine Nitrate Negative (Negative) Urine Bilirubin 1+ H (Negative) Urine Urobilinogen 1 H (Negative) mg/dL Ur Leukocyte Minerva ase 1+ H (Negative) Urine RBC 0-4 H (0-2) /hpf Urine WBC 15-25 H (0-5) /hpf Ur Squamous Epith Cells 25-40 H (0-5) /hpf Amorphous Sediment Not Reportable Urine Bacteria 3+ H (NONE) /hpf Serum Ketones Negative (Negative) Imaging Data^: CXR: Attestation: I personally reviewed and interpreted this imaging study as follows: Radiologist's impression: [address] [address] XRay Report Signed Patient: Emily Little #: [id number] : [facility][id number] Age/Sex: 69 / FADM Date: 02/09/20 Loc: ERRoom/Bed: Attending Dr: Ordering Provider/Ordering MD: Rosita Garcia Date of Service: 02/09/20 Procedure(s): XR chest 1V portable [id number] Accession Number(s): [id number] Report Number: [id number] PROCEDURE INFORMATION: Exam: XR Chest, 1 View Exam date and time: 02/09/2020 11:20 AM Age: 69 years old Clinical indication: Other: Syncope; Patient HX: Elevated blood sugar TECHNIQUE: Imaging protocol: XR of the chest Views: 1 view. COMPARISON: CR XR chest 1V portable [id number] 12/21/2019 3:26 PM FINDINGS: Lungs: There is a circumscribed granuloma in the left lower lobe. This finding measures 8 mm. Comparison to prior examination shows no interval change . No consolidation. Pleural space: Unremarkable. No pleural effusion. No pneumothorax. Heart/Mediastinum: Unremarkable. No cardiomegaly. Bones/joints: Unremarkable. XR/XR chest 1V portable [id number] IMPRESSION: 1. No acute findings. 2. 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 insulin use: with middle or intermediate school principal use Qualified Code(s): E11.65 - Type 2 diabetes mellitus with hyperglycemia Condition: Stable Prescriptions: Continued nitroglycerin [Nitrostat] 0.4 mg tablet, sublingual 0.4 mg SUBLINGUAL Q5M PRN (Reason: Chest Pain) RF: 0 insulin lispro [Humalog U-100 Insulin] 100 unit/mL solution 20 unit SUBCUT TID RF: 0 metformin 500 mg tablet extended release 24 hr 500 mg PO BID Qty: 60 RF: 1 (DME) diabetic shoes Qty: 1 RF: 0 metoprolol tartrate 25 mg tablet 25 mg PO BID Qty: 60 RF: 3 isosorbide mononitrate 30 mg tablet extended release 24 hr 30 mg PO QAM Qty: 30 RF: 3 furosemide 40 mg tablet 40 mg PO QAM Qty: 30 RF: 3 trazodone 50 mg tablet 50 mg PO BEDTIME RF: 0 albuterol sulfate 2.5 mg /3 mL (0.083 %) solution for nebulization 2.5 mg INHALATION Q4H PRN (Reason: shortness of breath or wheezing) Qty: 90 RF: 0 rosuvastatin [Crestor] 40 mg tablet 40 mg PO DAILY Qty: 90 RF: 0 (DME) blood sugar diagnostic [Accu-Chek Alley Plus test strp] Strip See Rx Instructions .ROUTE .MEDSUPPLY Qty: 100 RF: 2 (DME) pen needle, diabetic [Ultra Thin Pen Needle] 32 gauge x 5/32 needle See Rx Instructions .ROUTE .MEDSUPPLY Qty: 200 RF: 0 Victoza 2-Georges 0.6 mg/0.1 mL (18 mg/3 mL) pen injector 1.8 mg SUBCUT DAILY Qty: 6 RF: 1 (DME) Diabetic Shoes See Rx Instructions .ROUTE .MEDSUPPLY Qty: 1 RF: 0 aspirin 325 mg Tablet 325 mg PO DAILY RF: 0 lisinopril 20 mg tablet 20 mg PO DAILY RF: 0 Zoloft 100 mg tablet 200 mg PO BEDTIME RF: 0 clopidogrel 75 mg tablet 75 mg PO DAILY RF: 0 amlodipine 5 mg tablet 5 mg PO DAILY RF: 0 Lantus Solostar U-100 Insulin 100 unit/mL (3 mL) insulin pen 80 unit SUBCUT BEDTIME RF: 0 levothyroxine 125 mcg capsule 125 mcg PO DAILY RF: 0 Discharge Orders: Discharge Order (Routine); Ordered 02/09/20 Ordered By: Aida Narvaez Referrals: Luciana Espinoza PA [Primary Care Provider] - 1-3 days Discharge Diet: Diabetic Discharge Activity: Increase activity as tolerated Patient Instructions: Diabetes Mellitus Type 2 in Adults (ED) Activity Restrictions/Additional Instructions: Return for any new or worsening symptoms. Follow-up with your primary care provider within 3 days for adjustment of your diabetes medications. Consume a diabetic diet and drink plenty of water. Coding Level of Care Code ED Cardiopulmonary Technologist Chief for Garima Fwd Exam Comprehensive
[2020-02-09 12:17] LABS: Basophils % 0.3 %; Hematocrit 42.9 % (37.0-47.0); Hemoglobin 14.9 g/dL (11.5-15.3); Lymphocytes # 2.3 10^3/uL (0.8-4.8); Lymphocytes % 25.9 %; Mean Corpuscular HGB Conc 34.7 g/dL (30.0-36.0); Mean Corpuscular Hemoglobin 30.3 pg (28.0-34.0); Mean Corpuscular Volume 87.4 fL (81-99); Mean Platelet Volume 10.7 fL (7.4-10.4); Monocytes # 0.6 10^3/uL (0.2-0.9); Monocytes % 6.2 %; Neutrophils # 5.96 10^3/uL (1.8-7.7); Neutrophils % 67.3 %; Nucleated Red Blood Cells % 0 %; Platelet Count 193 10^3/cmm (130-400); Red Blood Count 4.91 10^6/uL (4.1-5.3); Red Cell Distribution Width 12.9 % (12.1-15.1); White Blood Count 8.9 10^3/uL (4.0-10.0)
[2020-02-09 12:28] LABS: Ketone (Acetest) Serum Negative (Negative)
[2020-02-09 12:31] LABS: Alanine Aminotransferase 21 U/L (0-33); Albumin Level 4.4 g/dL (3.5-5.2); Alkaline Phosphatase 150 IU/L (35-105); Anion Gap 16.7 (5-19); Aspartate Amino Transferase 14 U/L (0-32); Blood Urea Nitrogen 12 mg/dL (8-23); Carbon Dioxide 26 mmol/L (22-29); Chloride 93 mmol/L (98-107); Globulin 2.8 g/dL (1.3-4.6); Glomerular Filtration Rate 62.5 mL/min (90-130); Glucose 334 mg/dL (65-115); Osmolality Calculated 287 mOsm/kg (285-295); Potassium 3.7 mmol/L (3.5-5.1); Sodium 132 mmol/L (136-145); Total Bilirubin 0.4 mg/dL (0.15-1.2); Total Protein 7.2 g/dL (6.6-8.7)
[2020-02-09 13:52] VITALS: BP 106/65; O2SAT 98
[2020-02-09 14:04] LABS: Urine Color Yellow (Yellow)
[2020-02-09 14:05] LABS: Add Urine Microscopic? YES; Bilirubin Urine 1+ (Negative); Blood Urine Neg (Negative); Glucose Urine UA 2+ (Normal); Ketones Urine Negative (Negative); Leukocyte Esterase Urine 1+ (Negative); Nitrate Urine Negative (Negative); Protein Urine Neg (Negative); Specific Gravity, Urine 1.025 (1.005-1.030); Urobilinogen Urine 1 mg/dL (Negative); pH Urine 5 (5-7)
[2020-02-09 14:06] LABS: RBC Urine 0-4 /hpf (0-2)
[2020-02-09 14:07] LABS: Add Urine Culture? No; Bacteria Urine 3+ /hpf; Squamous Epithelial Cell Urine 25-40 /hpf (0-5); WBC Urine 15-25 /hpf (0-5)
[2020-02-09 15:06] VITALS: BP 96/67; RESP 16; O2SAT 100
== END 2020-02-09 15:08 | disposition home or self-care (01) ==
PROVIDERS: Nurse Practitioner Family; Emergency Provider Family Medicine; PCP Physician Assistant
DX: E11.65 Type 2 diabetes mellitus with hyperglycemia (principal); Z79.4 Long term (current) use of insulin; Z79.82 Long term (current) use of aspirin; Z79.02 Long term (current) use of antithrombotics/antiplatelets; J44.9 Chronic obstructive pulmonary disease, unspecified; Z86.73 Personal history of transient ischemic attack (TIA), and cerebral infarction without residual deficits; I10 Essential (primary) hypertension; E78.5 Hyperlipidemia, unspecified; F17.210 Nicotine dependence, cigarettes, uncomplicated
CPT/HCPCS: 12345; 71045; 80053; 81001; 82009; 85025; 99283

== ENCOUNTER 2020-02-20 10:58 | Outpatient (CLI) | payer MEDICARE, MEDICAID, SELFPAY ==
--- NOTE | 2020-02-20 11:06 | MR_ITS ---
WS: [id number] INDICATION: Pancreatic mass. Right ovarian mass. TECHNIQUE: Axial 2-D fiesta and axial T2. Coronal 2-D fiesta and coronal T2 imaging. Axial dual echo. Axial T1 and multiplanar postgadolinium imaging. FINDINGS: Mild diffuse fatty infiltration of the liver. Portal vein and splenic vein are patent. Normal spleen. A few small splenic cysts. No hydronephrosis in either kidney. Left renal cyst measuring 2.9 cm. Add itional smaller left renal cyst. Normal gallbladder. Normal visualized upper abdominal aorta. 2 small T2 hyperintense lesions in the pancreatic neck and head measuring 12 mm and 7 mm. No abnormal gadolinium enhancement involving these lesions. No pancreatic ductal dilatation. These likely repres ent small side branch IPMN's or pancreatic cysts. Recommend 6-12 month follow-up. No upper abdominal lymphadenopathy. MR/MR abdomen wo/w con* [id number] IMPRESSION: 1. 2 small T2 hyperintense nonenhancing lesions in the pancreatic neck and hea d likely represent small sidebranch IPMN and/or pancreatic cysts. Recommend 6-1 2 month interval follow-up with CT or MRI. 2. No pancreatic duct or common bile duct dilatation. No intrahepatic ductal d ilatation. 3. Diffuse fatty infiltration of the liver with hepatomegaly 4. No upper abdominal lymphadenopathy. 5. 15 mm left adrenal adenoma. 6. Left renal cyst measuring 2.9 cm.
== END 2020-02-20 10:59 | disposition home or self-care (01) ==
LOC: RADSHAW 11:04
PROVIDERS: PCP Physician Assistant; Visit Provider Obstetrics & Gynecology Gynecologic Oncology
DX: K86.89 Other specified diseases of pancreas (principal); N83.8 Other noninflammatory disorders of ovary, fallopian tube and broad ligament; Z68.31 Body mass index [BMI] 31.0-31.9, adult; K76.0 Fatty (change of) liver, not elsewhere classified; R16.0 Hepatomegaly, not elsewhere classified; D35.02 Benign neoplasm of left adrenal gland; N28.1 Cyst of kidney, acquired
CPT/HCPCS: 74183; A9579

== ENCOUNTER 2020-03-02 07:53 | Outpatient (CLI) | payer MEDICARE, MEDICAID, SELFPAY ==
--- NOTE | 2020-03-02 08:03 | FL_ITS ---
WS: [id number] Exam: FL upperGI air smallbowel ser* Date/Time of Exam: 03/02/2020 8:09 AM Reason For Exam: DIABETIC GASTROPATHY Fluoroscopy time: minutes Preliminary abdominal survey shows a moderate amount retained stool in the colon. Swallowing function was normal. The esophagus is patent. Opacification of the stomach shows marked pr ominence of gastric mucosa. A persistent mucosal filling defect is seen in the antrum that is suspici ous for a gastric ulcer. No duodenal ulcer was identified. There was marked pylorospasm and delayed g astric emptying. The patient vomited a significant volume of barium during the exam. The duodenal C-l oop is not widened or displaced. FL/FL upperGI air smallbowel ser* IMPRESSION: 1. Gastritis and probable antral gastric ulcer. 2. Marked pylorospasm and delayed gastric emptying. Small bowel follow-through. Small bowel follow-through was suboptimal and incom plete due to the patient's vomiting a significant volume of barium prior to the follow-through. The mucosal pattern of the duodenum and jejunum was unremarkable. Very little o f the ileum could be opacified. No findings on this exam would suggest acute sm all bowel obstruction. No sign of bowel loop herniation or displacement. IMPRESSION: 1. Visualized duodenum and jejunal loops are unremarkable without signs of smal l bowel obstruction however the exam was incomplete. The ileum was not opacifie d for evaluation.
== END 2020-03-02 07:54 | disposition home or self-care (01) ==
LOC: RAD 07:59
PROVIDERS: PCP Physician Assistant; Visit Provider Physician Assistant
DX: K31.9 Disease of stomach and duodenum, unspecified (principal)
CPT/HCPCS: 74246; 74248

== ENCOUNTER 2020-04-16 10:40 | Outpatient (CLI) | payer MEDICARE, MEDICAID, SELFPAY ==
--- NOTE | 2020-04-16 10:49 | US_ITS ---
WS: [id number] TRANSABDOMINAL PELVIC ULTRASOUND HISTORY: RIGHT OVARIAN MASS/PANCREATIC MASS COMPARISON: None available. Patient declined transvaginal imaging. Uterus: 7.2 cm x 4.1 cm x 2.8 cm. Normal size anteverted uterus. Endometrium: Poorly visualized endometrium without transvaginal imaging. This complex material along the endometrial canal. This could be a fibroid extending into the endometrial canal or endometrial ne oplasm. There is some increased vascularity. Overall diameters of this abnormality in the central ric harleen is 2.1 x 2.2 x 1.9 cm. Right ovary: 5.6 cm x 4.8 cm x 3.3 cm; patient has a known RIGHT ovarian mass. Lobulated soft tissue mass with increased vascularity suspicious for neoplasm. Left ovary: LEFT ovary is not visualized. No free fluid in the cul-de-sac. US/US pelvic complete* [id number] IMPRESSION: 1. Limited evaluation of pelvic structures without transvaginal imaging. Patie nt has declined transvaginal imaging. 2. As per history patient has a known RIGHT ovarian neoplasm. RIGHT ovary/mass measures 5.6 x 4.8 x 3.3 cm. 3. Abnormal endometrium. Hypoechoic mass in the central uterus may be a fibroi d or endometrial neoplasm. Recommend direct visualization.
== END 2020-04-16 10:41 | disposition home or self-care (01) ==
LOC: RAD 10:47
PROVIDERS: PCP Physician Assistant; Visit Provider Obstetrics & Gynecology Gynecologic Oncology
DX: N83.8 Other noninflammatory disorders of ovary, fallopian tube and broad ligament (principal); Z68.31 Body mass index [BMI] 31.0-31.9, adult; K86.89 Other specified diseases of pancreas; D49.59 Neoplasm of unspecified behavior of other genitourinary organ
CPT/HCPCS: 76856

== ENCOUNTER → 2020-04-27 08:04 | Outpatient (BNVA) | payer MEDICARE, MEDICAID, SELFPAY | PROVIDERS: PCP Physician Assistant; Referring Provider Physician Assistant; Visit Provider Internal Medicine | DX: E11.9 Type 2 diabetes mellitus without complications (principal); Z79.4 Long term (current) use of insulin; E66.9 Obesity, unspecified; G31.84 Mild cognitive impairment of uncertain or unknown etiology | CPT/HCPCS: 99205 ==

== ENCOUNTER 2020-07-02 14:06 | Outpatient (CLI) | payer MEDICARE, MEDICAID, SELFPAY ==
--- NOTE | 2020-07-02 14:15 | USCV_ITS ---
Emily Little Age: 69 Gender: F : 1950 Exam Date: 07/02/2020 14:56 Ordering Phys: Merritt Teran M.D ([email or web address]) Technologist: Exam Location: [facility] [place] Indication: ? BICUSPID BP: 160 / 95 HR: 79 Rhythm: Sinus Technical Quality: Good MEASUREMENTS (Male / Female) Normal Values 2D ECHO LV Diastolic Diameter PLAX 4.0 cm 4.2 - 5.9 / 3.9 - 5.3 cm LV Systolic Diameter PLAX 2.7 cm IVS Diastolic Thickness 1.7 cm 0.6 - 1.0 / 0.6 - 0.9 cm IVS Systolic Thickness 2.1 cm LVPW Diastolic Thickness 1.4 cm 0.6 - 1.0 / 0.6 - 0.9 cm LVPW Systolic Thickness 1.7 cm LVOT Diameter 2.0 cm LV Ejection Fraction 2D Teich 58.8 % LV Ejection Fraction MOD 2C 71.5 % LV Ejection Fraction 2C AL 67.0 % LA Diameter 3.3 cm LA Width 3.6 cm LA Height 4.8 cm RA Width 3.4 cm RA Height 4.2 cm Aorta at Sinotubular Diameter 2.8 cm M-MODE LV Diastolic Diameter MM 4.4 cm 4.2 - 5.9 / 3.9 - 5.3 cm LV Systolic Diameter MM 2.7 cm LV Ejection Fraction MM Teich 70.4 % IVS Diastolic Thickness MM 0.9 cm 0.6 - 1.0 / 0.6 - 0.9 cm IVS Systolic Thickness MM 1.2 cm LVPW Diastolic Thickness MM 0.8 cm 0.6 - 1.0 / 0.6 - 0.9 cm LVPW Systolic Thickness MM 1.1 cm Aortic Annulus Diameter 3.0 cm LA Ao Ratio MM 1.1 MV E Point Septal Separation 0.6 cm DOPPLER AV Peak Velocity 248.0 cm/s LVOT Peak Velocity 94.0 cm/s AV Area Cont Eq vti 1.4 cm squared AV Area Cont Eq pk 1.2 cm squared MV Area PHT 4.8 cm squared Mitral E to A Ratio 0.6 MV E' Velocity 31.5 cm/s Mitral E to MV E' Ratio 10.0 Mitral E to LV E' Lateral Ratio 9.2 Mitral E to LV E' Septal Ratio 11.0 TR Peak Velocity 266.0 cm/s TR Peak Gradient 28.3 mmHg Right Atrial Pressure 3.0 mmHg Pulmonary Artery Systolic Pressu 31.3 mmHg PV Peak Velocity 70.0 cm/s RV Acceleration Time 0.1 s RV Ejection Time 0.3 s RV AcT/ET 0.3 FINDINGS Left Ventricle Normal left ventricular size. LV systolic function is normal with EF of 55-60%. No regional wall motion abnormalities. Grade 1 diastolic dysfunction Right Ventricle The right ventricle is normal in size and function. Right Atrium The right atrium is normal in size. Left Atrium The left atrium is normal in size. Mitral Valve Structurally normal mitral valve without significant stenosis or prolapse. There is no mitral regurgitation. Aortic Valve Possible bicuspid aortic valve. There is mild aortic stenosis. By continuity equation, EMILY is 1.44 cm squared with mean gradient across the valve of 13 mmHg. There is no aortic regurgitation. Tricuspid Valve Structurally normal tricuspid valve without significant stenosis or regurgitation. Insufficient TR jet to calculate RVSP. Pulmonic Valve Structurally normal pulmonic valve without significant stenosis. There is mild pulmonic regurgitation. Pericardium Normal pericardium without effusion. Aorta Normal ascending aorta dimension. CONCLUSIONS LV systolic function is normal with EF of 55-60% Grade 1 diastolic dysfunction Possible bicuspid aortic valve. There is mild aortic stenosis with EMILY of 1.44 cm squared and mean gradient of 13 mmHg Mild pulmonic regurgitation Compared to prior echocardiogram from 09/09/2018, mild aortic stenosis is now seen Merritt Teran MD (Electronically Signed) Final Date: 03 July 2020 11:28 S
== END 2020-07-02 14:07 | disposition home or self-care (01) ==
LOC: US 14:22
PROVIDERS: PCP Physician Assistant; Visit Provider Internal Medicine
DX: R06.02 Shortness of breath (principal); I35.0 Nonrheumatic aortic (valve) stenosis; I37.1 Nonrheumatic pulmonary valve insufficiency
CPT/HCPCS: 93306

== ENCOUNTER 2020-07-20 12:33 | Emergency (ER) | payer MEDICARE, MEDICAID, SELFPAY ==
[2020-07-20 12:35] VITALS: BP 157/120; PULSE 85; RESP 18; TEMP 37.1; O2SAT 100; BMI 34.2
--- NOTE | 2020-07-20 12:40 | ECG_ITS ---
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1950 Requested By: Tony Azevedo Order Number: [id number] Reading MD: GLADYS CHEN Measurements Intervals [place] Rate: 73 P: 65 OR: 133 QRS: -39 QRSD: 103 T: 82 QT: 363 QTc: 402 Interpretive Statements SINUS RHYTHM WITH MARKED SINUS ARRHYTHMIA LEFT AXIS DEVIATION [QRS AXIS < -30] PATTERN CONSISTENT WITH PULMONARY DISEASE INCOMPLETE RIGHT BUNDLE BRANCH BLOCK [90+ ms QRS DURATION, TERMINAL R IN V1/V2, 40+ ms S IN I/aVL/V4/V5/V6] LEFT VENTRICULAR HYPERTROPHY AND ST-T CHANGE [VOLTAGE CRITERIA PLUS ST/T ABNORMALITY] WARNING: DATA QUALITY MAY AFFECT INTERPRETATION INTERPRETATION BASED ON A DEFAULT AGE OF 40 YEARS Compared to ECG 12/23/2019 15:39:46 Incomplete right bundle-branch block now present ST (T wave) deviation still present Electronically Signed On 07-20-2020 20:13:18 CDT by GLADYS CHEN [id number]
--- NOTE | 2020-07-20 12:56 | CT_ITS ---
WS: [id number] CT ABDOMEN AND PELVIS WITH CONTRAST HISTORY: Abdominal pain, recent hysterectomy. TECHNIQUE: Imaging performed of the abdomen and pelvis with IV contrast. Single phase imaging of the abdomen. Coronal and sagittal reformats are submitted. All CT scans at [facility] use at least one of these dose optimization techniques: automated exposure control; mA and/or kV adjustment per patient size (includes targeted exams where dose is matched to clinical indication); or iterativ e reconstruction. IV CONTRAST: Omnipaque 300; 95 mL IV. Oral contrast: No DLP: 1667.27 mGy.cm COMPARISON: 12/21/2019 Lower thorax: Bilateral lower lobe interstitial edema and mild reticulation. Benign granuloma at the LEFT lung base. Heart is normal size. Small hiatal hernia. Liver/biliary system: Normal size liver. 8mm low-attenuation nodule in the posterior RIGHT lobe the l iver similar to the prior study of 12/21/2019. Gallbladder: Normal. No gallstones or wall thickening. No pericholecystic fluid. Pancreas: Normal. Spleen: Normal size bleeding. Low-attenuation nodule measuring 6 mm in the spleen is unchanged since 12/21/2019. Adrenal glands: Bilateral adrenal nodules. The largest on the LEFT measures 16 mm is probably not georges nged significantly. Right kidney: Normal. Left kidney: 3.0 cm cyst upper pole LEFT kidney. There are additional smaller cortical hypodensities which are too small to characterize. Aorta: Mild atherosclerosis with no aneurysm. Lymphadenopathy: None. Free fluid: There is a small amount of free fluid adjacent to the liver and spleen and extending ximena g the paracolic gutters. Tiny amount of fluid in the RIGHT adnexa. GI tract: No GI tract obstruction. There is a large amount of enhancement and wall thickening involvi ng the small bowel in the LEFT abdomen. Overall there is mild hyperemia in the small bowel and colon and stranding within the mesentery and/or omentum. Abdominal wall: Unremarkable abdominal wall. No hernia. Pelvis: Well-distended urinary bladder. There is a fluid collection posterior to the urinary bladder at the site of the uterus measuring 3.9 x 4.4 x 4.3 cm. There are a few tiny foci of air. Suspicious for postoperative abscess. This could be a small seroma or hematoma but due to the small foci of air tiny abscess is not excluded. There is an additional extension of this collection to the RIGHT. Bones: Unremarkable. CT/CT abdomen pelvis w con* [id number] IMPRESSION: 1. Postoperative collection with tiny foci of air and wall enhancement in the pelvis, posterior to the urinary bladder but anterior to the rectum. This colle ction measures 3.9 x 4.4 x 4.3 cm. Differential includes postoperative abscess and less likely seroma or hematoma due to the time since surgery. 2. Small amount of ascites adjacent to the liver and spleen with mesenteric ed roseline and stranding and findings suggestive of mild peritonitis. There is signifi cant inflammation surrounding the small bowel in the LEFT abdomen and adjacent mesentery. 3. Stable nodules in each adrenal gland.
[2020-07-20 13:11] VITALS: BP 138/93; PULSE 100; RESP 18; O2SAT 90
[2020-07-20] MEDS: ondansetron 2 mg/ML SDV 2 mL 4 MG IVP (13:16)
[2020-07-20] MEDS: sodium chloride 0.9% 1,000 ML 999 ML IV (13:17)
--- NOTE | 2020-07-20 13:17 | W.ED.ABDPA2 ---
HPI - Abdominal Pain General: Chief Complaint: Abdominal Pain Stated Complaint: ABDOMINAL PAIN Time Seen by Provider: 07/20/20 12:40 History of Present Illness: HPI narrative: 69-year-old female presents emergency room complaining of abdominal pain and bloating. She complains also of pain lower pelvic. She is 10 days postop laparoscopic-assisted vaginal hysterectomy. She denies fever sweats or chills she does have some dysuria. No vomiting or diarrhea. MD elicited complaint: abdominal pain Onset (ago): day(s) Pain Consistency: constant Location: Suprapubic Severity: moderate Quality: cramping Radiation: none Migration to: no migration Exacerbating factors: movement Relieving factors: rest Associated Symptoms: Reports anorexia, bloating, GI cramping, nausea and poor appetite; Denies belching, change in bowel habits, change in stool character, chills, coffee ground emesis, constipation, diarrhea, dyspepsia, dysuria, excessive flatus, fever(s), heartburn, hematochezia, hematuria, hematemesis, fecal incontinence, loose stools, melena, syncope and vomiting Review of Systems Const: Denies: fever(s) or chills ENMT: Denies: throat pain, ear or mastoid pain, nasal discharge or nasal congestion Card: Denies: syncope Resp: Denies: dyspnea, productive cough or non-productive cough GI: Reports: nausea, bloating and GI cramping; Denies: vomiting, hematemesis, coffee ground emesis, heartburn, diarrhea, constipation, belching, excessive flatus, fecal incontinence, change in bowel habits, change in stool character, hematochezia or melena : Denies: dysuria or hematuria Skin/Breast: Denies: rash or pruritus PFSH ED PFSH: Medical History (Updated 07/20/20 @ 15:16 by Tony Montero DO) Bicuspid aortic valve COPD (chronic obstructive pulmonary disease) CVA (cerebral vascular accident) DDD (degenerative disc disease) Edema Endocarditis Essential hypertension Gait abnormality History of myocardial infarction Hyperlipidemia Hyperparathyroidism Hypothyroidism Migraine Obesity Schizoaffective disorder SOB (shortness of breath) Tobacco abuse Type 2 diabetes mellitus, with long-term current use of insulin Surgical History S/P angioplasty with stent S/P appendectomy S/P lumpectomy of breast S/P tonsillectomy Family History Father CAD (coronary artery disease) Cancer Mother CAD (coronary artery disease) Sister Cancer Other Diabetes Social History Smoking and tobacco status: current every day smoker cigarettes Packs smoked per day: 0.50 Alcohol intake: never Lives independently: Yes Marital status: Physical Exam Const: COMMON NORMALS: no acute distress GENERAL APPEARANCE: comfortable ORIENTATION/CONSCIOUSNESS: Yes awake, Yes oriented to person, Yes oriented to place and Yes oriented to time HENMT: COMMON NORMALS: normocephalic, atraumatic and hearing grossly normal bilaterally HEAD & SCALP: normocephalic and atraumatic Eye: COMMON NORMALS: Equal, round and reactive pupils present, EOMs intact bilaterally, conjunctivae normal and no scleral icterus CONJUNCTIVA: Yes conjunctivae normal PUPIL: Yes Equal, round and reactive pupils present Neck/C-Spine: COMMON NORMALS: no JVD Resp: COMMON NORMALS: normal respiratory effort, No retractions, No use of accessory muscles and clear to auscultation bilaterally AUSCULTATION: clear to auscultation bilaterally Cardio: COMMON NORMALS: no JVD, regular rate, regular rhythm and No murmurs present (Cardio) RATE: regular rate RHYTHM: regular rhythm GI: COMMON NORMALS: Soft to palpation and No hepatosplenomegaly present AUSCULTATION: Yes normoactive bowel sounds PALPATION: Yes Soft to palpation, No Tenderness to palpation present (GI), No Guarding due to palpation present (GI) and Yes No hepatosplenomegaly present Extremity: COMMON NORMALS: normal to inspection, capillary refill normal, no clubbing, cyanosis or edema, no calf tenderness and no pedal edema Neuro: SENSORIUM/ORIENTATION: Yes oriented to person, Yes oriented to place and Yes oriented to time Skin: COMMON NORMALS: no rashes or lesions noted GENERAL SKIN EXAM: no rashes or lesions noted Course Vital Signs: Vital signs: Vital Signs Temperature 98.7 F 07/20/20 12:35 Pulse Rate 97 07/20/20 15:33 Respiratory Rate 18 07/20/20 16:08 Blood Pressure 163/69 07/20/20 15:33 Pulse Oximetry 93 07/20/20 16:08 MDM - Abdominal Pain MDM Narrative: Medical decision making narrative: Patient has peritonitis with possible pelvic abscess on CT. She also has a cystitis. She is initially given ceftriaxone when the CT came back as she was changed to Zosyn. Cultures have been obtained. She has multiple comorbid conditions as well as extensive peritonitis. I talked to Dr. Sanchez she said recommends that the patient return to [facility] because of her comorbid conditions. She has extensive CT findings as well. When I had initially talked to the patient she had been hesitant to go back to [facility] I concur with Dr. Sanchez in her assessment that she may require more services than we have here. Discussed again with patient and she consents to transfer to [facility]. On break has excepted at [facility] is a direct admission. Lab Data: Labs: Lab Results 07/20/20 07/20/20 07/20/20 Range/Units 12:55 12:55 13:10 WBC 9.0 (4.0-10.0) 10^3/ uL RBC 4.68 (4.1-5.3) 10^6/u L Hgb 14.1 (11.5-15.3) g/dL Hct 43.3 (37.0-47.0) % MCV 92.5 (81-99) fL MCH 30.1 (28.0-34.0) pg MCHC 32.6 (30.0-36.0) g/dL RDW 13.2 (12.1-15.1) % Plt Count 247 (130-400) 10^3/c mm MPV 10.2 (7.4-10.4) fL Neut % (Auto) 78.4 % Lymph % (Auto) 15.6 % Carter % (Auto) 4.8 % Eos % (Auto) 0.1 % Baso % (Auto) 0.3 % Neut # (Auto) 7.06 (1.8-7.7) 10^3/u L Lymph # (Auto) 1.4 (0.8-4.8) 10^3/u L Carter # (Auto) 0.4 (0.2-0.9) 10^3/u L Eos # (Auto) 0.0 (0.0-0.8) 10^3/u L Baso # (Auto) 0.0 (0.0-0.1) 10^3/u L Nucleated RBC % (a uto) 0 % Nucleated RBCs # 0.0 /100WBC Sodium 140 (136-145) mmol/L Potassium 4.9 (3.5-5.1) mmol/L Chloride 102 (98-107) mmol/L Carbon Dioxide 27 (22-29) mmol/L Anion Gap 15.9 (5-19) BUN 12 (8-23) mg/dL Creatinine 0.9 (0.5-0.9) mg/dL GFR Calculation 62.5 L (90-130) mL/min Glucose 342 H (65-115) mg/dL Calculated Osmolal ity 303 H (285-295) mOsm/k g Calcium 9.3 (8.5-10.5) mg/dL Total Bilirubin 0.3 (0.15-1.2) mg/dL AST 10 (0-32) U/L ALT 38 H (0-33) U/L Alkaline Phosphata se 219 H (35-105) IU/L Total Protein 6.5 L (6.6-8.7) g/dL Albumin 4.3 (3.5-5.2) g/dL Globulin 2.2 (1.3-4.6) g/dL Lipase 30 (13-60) U/L Urine Color Straw (Yellow) Urine Appearance Sl hazy (CLEAR) Urine pH 7 (5-7) Ur Specific Gravit y 1.010 (1.005-1.030) Urine Protein Neg (Negative) Urine Glucose (UA) 4+ H (Normal) Urine Ketones Negative (Negative) Urine Blood Neg (Negative) Urine Nitrate Positive H (Negative) Urine Bilirubin Neg (Negative) Urine Urobilinogen Norm (Negative) mg/dL Ur Leukocyte Minerva ase Trace H (Negative) Urine RBC 5-10 H (0-2) /hpf Urine WBC 15-25 H (0-5) /hpf Ur Squamous Epith Cells 0-4 H (0-5) /hpf Amorphous Sediment Not Reportable Urine Bacteria 4+ H (NONE) /hpf Discharge Plan Discharge Patient Disposition: Xfer Short-Term Hosp Clinical Impression: Acute abscess of female pelvis, COPD (chronic obstructive pulmonary disease), Essential hypertension, Bicuspid aortic valve, Obesity, Hypothyroidism, Schizoaffective disorder, CVA (cerebral vascular accident), Type 2 diabetes mellitus, with long-term current use of insulin, Peritonitis, CAD (coronary artery disease) Condition: Stable Referrals: Luciana Espinoza PA [Primary Care Provider] - Coding Level of Care Code ED Aviation Technical Systems Specialist for Chg Fwd Exam Comprehensive
[2020-07-20 13:21] LABS: Basophils % 0.3 %; Eosinophils % 0.1 %; Hematocrit 43.3 % (37.0-47.0); Hemoglobin 14.1 g/dL (11.5-15.3); Lymphocytes # 1.4 10^3/uL (0.8-4.8); Lymphocytes % 15.6 %; Mean Corpuscular HGB Conc 32.6 g/dL (30.0-36.0); Mean Corpuscular Hemoglobin 30.1 pg (28.0-34.0); Mean Corpuscular Volume 92.5 fL (81-99); Mean Platelet Volume 10.2 fL (7.4-10.4); Monocytes # 0.4 10^3/uL (0.2-0.9); Monocytes % 4.8 %; Neutrophils # 7.06 10^3/uL (1.8-7.7); Neutrophils % 78.4 %; Nucleated Red Blood Cells % 0 %; Platelet Count 247 10^3/cmm (130-400); Red Blood Count 4.68 10^6/uL (4.1-5.3); Red Cell Distribution Width 13.2 % (12.1-15.1)
[2020-07-20 13:27] LABS: Add Urine Microscopic? YES; Bilirubin Urine Neg (Negative); Blood Urine Neg (Negative); Glucose Urine UA 4+ (Normal); Ketones Urine Negative (Negative); Leukocyte Esterase Urine Trace (Negative); Nitrate Urine Positive (Negative); Protein Urine Neg (Negative); Urine Appearance SL Hazy (CLEAR); Urine Color Straw (Yellow); Urobilinogen Urine Norm (Negative); pH Urine 7 (5-7)
[2020-07-20 13:35] LABS: Alanine Aminotransferase 38 U/L (0-33); Albumin Level 4.3 g/dL (3.5-5.2); Alkaline Phosphatase 219 IU/L (35-105); Anion Gap 15.9 (5-19); Aspartate Amino Transferase 10 U/L (0-32); Blood Urea Nitrogen 12 mg/dL (8-23); Calcium 9.3 mg/dL (8.5-10.5); Carbon Dioxide 27 mmol/L (22-29); Chloride 102 mmol/L (98-107); Globulin 2.2 g/dL (1.3-4.6); Glomerular Filtration Rate 62.5 mL/min (90-130); Glucose 342 mg/dL (65-115); Lipase 30 U/L (13-60); Osmolality Calculated 303 mOsm/kg (285-295); Potassium 4.9 mmol/L (3.5-5.1); Sodium 140 mmol/L (136-145); Total Bilirubin 0.3 mg/dL (0.15-1.2); Total Protein 6.5 g/dL (6.6-8.7)
[2020-07-20 13:35] LABS: Bacteria Urine 4+ /hpf; Squamous Epithelial Cell Urine 0-4 /hpf (0-5); WBC Urine 15-25 /hpf (0-5)
[2020-07-20 13:36] LABS: Add Urine Culture? Yes
[2020-07-20] MEDS: iohexol 300 mg/mL 100 mL Btl IV (13:49)
[2020-07-20] MEDS: cefTRIAXone 1,000 MG in sodium chloride 0.9% (plus) 50 ML 100 MG IV (14:35)
[2020-07-20 15:33] VITALS: BP 163/69; PULSE 97; RESP 18; O2SAT 94
[2020-07-20] MEDS: piperacillin-tazobactam 3.375 GM in sodium chloride 0.9% (plus) 50 ML IV (16:07)
[2020-07-20 16:08] VITALS: RESP 18; O2SAT 93
[2020-07-20] MEDS: morphine 4 mg/mL SDV 1 mL 6 MG IVP (16:08)
[2020-07-20 16:54] VITALS: BP 150/68; PULSE 96; RESP 18; O2SAT 90
== END 2020-07-20 17:22 | disposition short-term general hospital (02) ==
PROVIDERS: Emergency Provider Family Medicine; PCP Physician Assistant
DX: N73.9 Female pelvic inflammatory disease, unspecified (principal); J44.9 Chronic obstructive pulmonary disease, unspecified; I10 Essential (primary) hypertension; Q23.1 Congenital insufficiency of aortic valve; E66.9 Obesity, unspecified; Z68.34 Body mass index [BMI] 34.0-34.9, adult; E03.9 Hypothyroidism, unspecified; F25.9 Schizoaffective disorder, unspecified; I63.9 Cerebral infarction, unspecified; E11.9 Type 2 diabetes mellitus without complications; Z79.4 Long term (current) use of insulin; K65.9 Peritonitis, unspecified; I25.10 Atherosclerotic heart disease of native coronary artery without angina pectoris; E78.5 Hyperlipidemia, unspecified
CPT/HCPCS: 51701; 74177; 80053; 81001; 83690; 85025; 87040; 87077; 87086; 87186; 93005; 96365; 96367; 96375; 99291; J0696; J2270; J2405; J2543; J7030; Q9967

== ENCOUNTER → 2020-11-12 09:43 | Outpatient (BNVA) | payer MEDICARE, MEDICAID, SELFPAY | PROVIDERS: PCP Physician Assistant; Visit Provider Internal Medicine | DX: E11.9 Type 2 diabetes mellitus without complications (principal); G31.84 Mild cognitive impairment of uncertain or unknown etiology; E66.9 Obesity, unspecified; E03.9 Hypothyroidism, unspecified; Z79.4 Long term (current) use of insulin; Z68.32 Body mass index [BMI] 32.0-32.9, adult | CPT/HCPCS: 99214 ==

== ENCOUNTER 2021-01-07 10:06 | Outpatient (CLI) | payer MEDICARE, MEDICAID, SELFPAY ==
--- NOTE | 2021-01-07 10:22 | MM_ITS ---
WS: [id number] BILATERAL DIGITAL SCREENING MAMMOGRAPHY WITH CAD CLINICAL INFORMATION: SCREENING HISTORY: Screening mammogram. No current complaints. COMPARISON: TECHNIQUE: Bilateral CC and MLO views. FINDINGS: Scattered fibroglandular densities bilaterally. Stable punctate and clustered calcifications. Vascula r calcification. No suspicious focal mass, asymmetry, calcifications, or architectural distortion. No evidence of malignancy. MM/[place] [id number] IMPRESSION: BI-RADS: 2-Benign FOLLOW UP: 1 Year Follow-up Recommend return to annual screening mammography.
== END 2021-01-07 10:07 | disposition home or self-care (01) ==
PROVIDERS: PCP Physician Assistant; Visit Provider Physician Assistant
DX: Z12.31 Encounter for screening mammogram for malignant neoplasm of breast (principal)
CPT/HCPCS: 77067

== ENCOUNTER → 2021-02-12 09:45 | Outpatient (BNVA) | payer MEDICARE, MEDICAID, SELFPAY | PROVIDERS: PCP Physician Assistant; Visit Provider Internal Medicine | DX: E11.9 Type 2 diabetes mellitus without complications (principal); G31.84 Mild cognitive impairment of uncertain or unknown etiology; E66.9 Obesity, unspecified; I63.9 Cerebral infarction, unspecified; Z68.32 Body mass index [BMI] 32.0-32.9, adult; Z79.4 Long term (current) use of insulin; Z79.84 Long term (current) use of oral hypoglycemic drugs; F17.210 Nicotine dependence, cigarettes, uncomplicated | CPT/HCPCS: 99214 ==

== ENCOUNTER → 2021-04-25 09:25 | Outpatient (BNVA) | payer MEDICARE, MEDICAID, SELFPAY | PROVIDERS: PCP Physician Assistant; Visit Provider Internal Medicine | DX: E11.9 Type 2 diabetes mellitus without complications (principal); G31.84 Mild cognitive impairment of uncertain or unknown etiology; E66.9 Obesity, unspecified; Z79.4 Long term (current) use of insulin; Z68.32 Body mass index [BMI] 32.0-32.9, adult | CPT/HCPCS: 99213 ==

== ENCOUNTER 2021-04-29 15:59 | Inpatient (IN) | payer MEDICARE, MEDICAID, SELFPAY ==
[2021-04-29] VITALS (33 sets, daily range): BP systolic 138–230; BP diastolic 82–117; PULSE 75–131; RESP 11–28; O2SAT 92–98
--- NOTE | 2021-04-29 16:11 | CTR_ITS ---
PROCEDURE INFORMATION: Exam: CT Head Without Contrast Exam date and time: 04/29/2021 4:11 PM Age: 70 years old Clinical indication: Altered mental status/memory loss; Patient HX: HX of ovarian cancer; Additional info: AMS TECHNIQUE: Imaging protocol: Computed tomography of the head without contrast. Radiation optimization: All CT scans at this facility use at least one of these dose optimization techniques: automated exposure control; mA and/or kV adjustment per patient size (includes targeted exams where dose is matched to clinical indication); or iterative reconstruction. COMPARISON: CT head wo con* [id number] 12/23/2019 3:02 PM RADIATION DOSE METRICS: Total DLP (mGy-cm): 699 FINDINGS: Brain: No hemorrhage. Moderate diffuse cerebral atrophy and sequela of chronic small vessel ischemic disease with old lacunar infarcts in the basal ganglia. No evidence of lesions/masses. Cerebral ventricles: No ventriculomegaly. Paranasal sinuses: Visualized sinuses are unremarkable. No fluid levels. Mastoid air cells: Visualized mastoid air cells are well aerated. Bones/joints: Unremarkable. No acute fracture. Soft tissues: Unremarkable. CT/CT head wo con* [id number] IMPRESSION: No acute intracranial abnormality.
--- NOTE | 2021-04-29 16:11 | XRR_ITS ---
PROCEDURE INFORMATION: Exam: XR Chest Exam date and time: 04/29/2021 4:11 PM Age: 70 years old Clinical indication: Cough and shortness of breath; Additional info: Dyspnea/cough TECHNIQUE: Imaging protocol: XR of the chest. Views: 1 view. COMPARISON: CT angio headneck* [id number] 10/25/2019 9:13 AM FINDINGS: Lungs: Calcified granuloma noted in the left lung base. No consolidation. Pleural spaces: Unremarkable. No pleural effusion. No pneumothorax. Heart/Mediastinum: Unremarkable. No cardiomegaly. Bones/joints: Unremarkable. XR/XR chest 1V portable [id number] IMPRESSION: No acute findings.
--- NOTE | 2021-04-29 16:15 | ED_ITS ---
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 Patient is aware of place and person but is somewhat disoriented was tachypneic with a heart elevated end-tidal CO2 per EMS. She is an insulin controlled diabetic.She also has a history of a bicuspid aortic valve and some mild cognitive impairment. Onset (ago): day(s) (Possibly up to 3 days) Location: head Relieving factors: none Exacerbating factors: none Associated symptoms: Reports confusion, malaise and weakness; Deny chest pain, cough or diaphoresis Treatments prior to arrival: none Review of Systems General: Reports: ROS unobtainable due to medical condition Const: Reports: malaise; Denies: diaphoresis Card: Denies: chest pain Neuro: Reports: confusion PFSH ED PFSH: Medical History (Updated 05/08/21 @ 08:26 by Tony Montero DO) Bicuspid aortic valve COPD (chronic obstructive pulmonary disease) CVA (cerebral vascular accident) DDD (degenerative disc disease) Edema Endocarditis Essential hypertension Gait abnormality History of myocardial infarction Hyperlipidemia Hyperparathyroidism Hypothyroidism Migraine Obesity Schizoaffective disorder SOB (shortness of breath) Tobacco abuse Type 2 diabetes mellitus, with long-term current use of insulin Surgical History S/P angioplasty with stent S/P appendectomy S/P lumpectomy of breast S/P tonsillectomy Family History Father CAD (coronary artery disease) Cancer Mother CAD (coronary artery disease) Sister Cancer Other Diabetes Social History Quit status (tobacco): not considering quitting Second hand smoke exposure: Yes Smoking risk assessment/counseling performed?: Yes Alcohol intake: never Desire information about alcohol rehabilitation?: No Counseling given: No Desire information about substance/drug rehabilitation?: No Counseling given: No Adopted: No Caregiver/support person: Yes Lives independently: Yes Household members: none Housing: House Marital status: Number of children: 1 Highest education level completed: High School Graduate service: No Current occupational status: retired and disabled History of recent travel: No Sexually active: No Current gender identity: Female Physical Exam Const: GENERAL APPEARANCE: cooperative HENMT: COMMON NORMALS: normocephalic, atraumatic and hearing grossly normal bilaterally HEAD & SCALP: normocephalic and atraumatic Neck/C-Spine: COMMON NORMALS: no JVD Lymph: LYMPHATIC: no lymphadenopathy noted and no lymphedema noted Resp: COMMON NORMALS: normal respiratory effort, No retractions, No use of ac cessory muscles and clear to auscultation bilaterally AUSCULTATION: clear to auscultation bilaterally Cardio: COMMON NORMALS: no JVD, regular rate, regular rhythm and No murmurs present (Cardio) RATE: regular rate RHYTHM: regular rhythm GI: COMMON NORMALS: Soft to palpation and No hepatosplenomegaly present AUSCULTATION: Yes normoactive bowel sounds PALPATION: Yes Soft to palpation, No Tenderness to palpation present (GI), No Guarding due to palpation present (GI) and Yes No hepatosplenomegaly present Extremity: COMMON NORMALS: normal to inspection, capillary refill normal, no clubbing, cyanosis or edema, no calf tenderness and no pedal edema Skin: COMMON NORMALS: no rashes or lesions noted GENERAL SKIN EXAM: no rashes or lesions noted Course Vital Signs: Vital signs: Vital Signs Temperature 97.8 F 05/08/21 04:00 Pulse Rate 59 L 05/08/21 06:00 Respiratory Rate 12 05/08/21 04:00 Blood Pressure 160/79 05/08/21 04:00 Pulse Oximetry 98 05/08/21 04:00 MDM - General Adult MDM Narrative Medical decision making narrative: Acute encephalopathy. Patient is of minimal assistance with history. She is alert to self only. Labs and imaging reviewed discussed with hospitalist orders written Medical Records Attestation: I reviewed the patient's medical records. Lab Data Attestation: I reviewed the patient's lab results. Result diagrams: 05/07/21 02:21 05/07/21 02:21 Labs: Lab Results 04/29/21 04/29/21 04/29/21 15:40 15:40 16:37 WBC RBC Hgb Hct MCV MCH MCHC RDW Plt Count MPV Neut % (Auto) Lymph % (Auto) [place] % (Auto) Eos % (Auto) Baso % (Auto) Neut # (Auto) Lymph # (Auto) [place] # (Auto) Eos # (Auto) Baso # (Auto) Nucleated RBC % (auto) Nucleated RBCs # Specimen Type Arterial Sample Site Radial, left ABG pH 7.43 (7.35-7.45) ABG pCO2 38.2 mmHg mmHg (35-45) ABG pO2 73.4 mmHg L mmHg (80.0-100.0) ABG HCO3 25.4 mmol/L mmol/L (22-26) ABG O2 Saturation 96.5 ABG Base Excess 1.2 mmol/L mmol/L (-2.0-2.0) Shabbir Test Pos A-a O2 Gradient 3.7 mmHg L mmHg (5-10) Hematocrit 46.1 % % (37-47) Hgb O2 Saturation 91.7 % L % (95-100) Carboxyhemoglobin 4.0 %THgb %THgb (0.4-20.1) Methemoglobin 0.9 % % (0.4-1.5) Total Hemoglobin 15.0 g/dL g/dL (12-16) Ionized Calcium 1.2 mmol/L mmol/L (1.1-1.4) O2 Delivery Device Room air FiO2 21.0 % % Clock And Watch Hands Dipper ID Cak Sodium 133 mmol/L L mmol/L 135.0 mmol/L mmol/L (136-145) (131-143) Potassium 4.2 mmol/L mmol/L 4.1 mmol/L mmol/L (3.5-5.1) (3.5-5.0) Chloride 92 mmol/L L mmol/L (98-107) Carbon Dioxide 23 mmol/L mmol/L (22-29) Anion Gap 22.2 H (5-19) BUN 17 mg/dL mg/dL (8-23) Creatinine 0.9 mg/dL mg/dL (0.5-0.9) GFR Calculation 62.3 mL/min L mL/min (90-130) Glucose 569 mg/dL H* mg/dL 549.0 mg/dL H mg/dL (65-115) (70-115) POC Glucose Calculated Osmolality 304 mOsm/kg H mOsm/kg (285-295) Lactic Acid Calcium 9.1 mg/dL mg/dL (8.5-10.5) Magnesium 1.8 mg/dL mg/dL (1.7-2.3) Total Bilirubin 0.3 mg/dL mg/dL (0.15-1.2) AST 9 U/L U/L (0-32) ALT 17 U/L U/L (0-33) Alkaline Phosphatase 184 IU/L H IU/L (35-105) Creatine Kinase 73 U/L U/L (26-192) Troponin T Baseline 22 ng/L H ng/L (0-10) Troponin T 120 Minute Delta Troponin T Troponin T Hi Sens 6Hr Troponin T Hi Sens 6Hr Delta Total Protein 6.5 g/dL L g/dL (6.6-8.7) Albumin 4.4 g/dL g/dL (3.5-5.2) Globulin 2.1 g/dL g/dL (1.3-4.6) Lipase 43 U/L U/L (13-60) TSH Urine Color Urine Appearance Urine pH Ur Specific [place] Urine Protein Urine Glucose (UA) Urine Ketones Urine Blood Urine Nitrate Urine Bilirubin Urine Urobilinogen Ur Leukocyte Esterase Urine RBC Urine WBC Ur Squamous Epith Cells Amorphous Sediment Urine Bacteria Serum Ketones 04/29/21 04/29/21 04/29/21 16:52 16:52 17:42 WBC 11.4 10^3/uL H 10^3/uL (4.0-10.0) RBC 4.95 10^6/uL 10^6/uL (4.1-5.3) Hgb 14.6 g/dL g/dL (11.5-15.3) Hct 43.8 % % (37.0-47.0) MCV 88.5 fl fl (81-99) MCH 29.5 pg pg (28.0-34.0) MCHC 33.3 g/dL g/dL (30.0-36.0) RDW 12.4 % % (12.1-15.1) Plt Count 184 10^3/cmm 10^3/cmm (130-400) MPV 11.3 fL H fL (7.4-10.4) Neut % (Auto) 78.8 % % Lymph % (Auto) 14.8 % % [place] % (Auto) 5.6 % % Eos % (Auto) 0.0 % % Baso % (Auto) 0.4 % % Neut # (Auto) 8.95 10^3/uL H 10^3/uL (1.8-7.7) Lymph # (Auto) 1.7 10^3/uL 10^3/uL (0.8-4.8) [place] # (Auto) 0.6 10^3/uL 10^3/uL (0.2-0.9) Eos # (Auto) 0.0 10^3/uL 10^3/uL (0.0-0.8) Baso # (Auto) 0.0 10^3/uL 10^3/uL (0.0-0.1) Nucleated RBC % (auto) 0 % % Nucleated RBCs # 0.0 /100WBC /100WBC Specimen Type Sample Site ABG pH ABG pCO2 ABG pO2 ABG HCO3 ABG O2 Saturation ABG Base Excess Shabbir Test A-a O2 Gradient Hematocrit Hgb O2 Saturation Carboxyhemoglobin Methemoglobin Total Hemoglobin Ionized Calcium O2 Delivery Device FiO2 Clock And Watch Hands Dipper ID Sodium Potassium Chloride Carbon Dioxide Anion Gap BUN Creatinine GFR Calculation Glucose POC Glucose Calculated Osmolality Lactic Acid 1.7 mmol/L mmol/L (0.5-2.2) Calcium Magnesium Total Bilirubin AST ALT Alkaline Phosphatase Creatine Kinase Troponin T Baseline Troponin T 120 Minute 22.59 ng/L H ng/L (0-10) Delta Troponin T 0.59 ABS# ABS# (0-10) Troponin T Hi Sens 6Hr Troponin T Hi Sens 6Hr Delta Total Protein Albumin Globulin Lipase TSH Urine Color Urine Appearance Urine pH Ur Specific [place] Urine Protein Urine Glucose (UA) Urine Ketones Urine Blood Urine Nitrate Urine Bilirubin Urine Urobilinogen Ur Leukocyte Esterase Urine RBC Urine WBC Ur Squamous Epith Cells Amorphous Sediment Urine Bacteria Serum Ketones 04/29/21 04/29/21 04/29/21 17:42 17:42 18:36 WBC RBC Hgb Hct MCV MCH MCHC RDW Plt Count MPV Neut % (Auto) Lymph % (Auto) [place] % (Auto) Eos % (Auto) Baso % (Auto) Neut # (Auto) Lymph # (Auto) [place] # (Auto) Eos # (Auto) Baso # (Auto) Nucleated RBC % (auto) Nucleated RBCs # Specimen Type Sample Site ABG pH ABG pCO2 ABG pO2 ABG HCO3 ABG O2 Saturation ABG Base Excess Shabbir Test A-a O2 Gradient Hematocrit Hgb O2 Saturation Carboxyhemoglobin Methemoglobin Total Hemoglobin Ionized Calcium O2 Delivery Device FiO2 Clock And Watch Hands Dipper ID Sodium Potassium Chloride Carbon Dioxide Anion Gap BUN Creatinine GFR Calculation Glucose POC Glucose Calculated Osmolality Lactic Acid Calcium Magnesium Total Bilirubin AST ALT Alkaline Phosphatase Creatine Kinase Troponin T Baseline Troponin T 120 Minute Delta Troponin T Troponin T Hi Sens 6Hr Troponin T Hi Sens 6Hr Delta Total Protein Albumin Globulin Lipase TSH 6.15 uIU/mL H uIU/mL (0.27-4.20) Urine Color Yellow (Yellow) Urine Appearance Clear (CLEAR) Urine pH 6 (5-7) Ur Specific [place] 1.015 (1.005-1.030) Urine Protein 2+ H (Negative) Urine Glucose (UA) 4+ H (Normal) Urine Ketones Negative (Negative) Urine Blood Neg (Negative) Urine Nitrate Negative (Negative) Urine Bilirubin Neg (Negative) Urine Urobilinogen Norm mg/dL mg/dL (Negative) Ur Leukocyte Esterase Negative (Negative) Urine RBC None /hpf /hpf (0-2) Urine WBC 0-4 /hpf H /hpf (0-5) Ur Squamous Epith Cells 0-4 /hpf H /hpf (0-5) Amorphous Sediment Not Reportable Urine Bacteria Trace /hpf /hpf (NONE) Serum Ketones Negative (Negative) 04/29/21 04/29/21 20:33 21:56 WBC RBC Hgb Hct MCV MCH MCHC RDW Plt Count MPV Neut % (Auto) Lymph % (Auto) [place] % (Auto) Eos % (Auto) Baso % (Auto) Neut # (Auto) Lymph # (Auto) [place] # (Auto) Eos # (Auto) Baso # (Auto) Nucleated RBC % (auto) Nucleated RBCs # Specimen Type Sample Site ABG pH ABG pCO2 ABG pO2 ABG HCO3 ABG O2 Saturation ABG Base Excess Shabbir Test A-a O2 Gradient Hematocrit Hgb O2 Saturation Carboxyhemoglobin Methemoglobin Total Hemoglobin Ionized Calcium O2 Delivery Device FiO2 Clock And Watch Hands Dipper ID Sodium Potassium Chloride Carbon Dioxide Anion Gap BUN Creatinine GFR Calculation Glucose POC Glucose 337 mg/dL H mg/dL (70-110) Calculated Osmolality Lactic Acid Calcium Magnesium Total Bilirubin AST ALT Alkaline Phosphatase Creatine Kinase Troponin T Baseline Troponin T 120 Minute Delta Troponin T Troponin T Hi Sens 6Hr 26.65 ng/L H ng/L (0-10) Troponin T Hi Sens 6Hr Delta 4.65 ng/L ng/L (0-12) Total Protein Albumin Globulin Lipase TSH Urine Color Urine Appearance Urine pH Ur Specific [place] Urine Protein Urine Glucose (UA) Urine Ketones Urine Blood Urine Nitrate Urine Bilirubin Urine Urobilinogen Ur Leukocyte Esterase Urine RBC Urine WBC Ur Squamous Epith Cells Amorphous Sediment Urine Bacteria Serum Ketones Discharge Plan Discharge Patient Disposition: Admitted As Inpatient Admit Provider: Ramakrishna Maldonado Clinical Impression: Acute encephalopathy, Type 2 diabetes mellitus, with long-term current use of insulin, CVA (cerebral vascular accident), Hypothyroidism, COPD (chronic obstructive pulmonary disease), Essential hypertension Condition: Stable Coding Level of Care Code ED Senior Data Warehouse Developer for Chg Fwd Exam Comprehensive Documented by User: Sherrill Mcdermott MD 04/29/21 20:01 HPI - General Adult General: Chief complaint: ER Hold Stated complaint: AMS, DIABETIC Time Seen by Provider: 04/29/21 16:11 [facility] ED PFSH: Medical History (Updated 05/08/21 @ 08:26 by Tony Montero DO) Bicuspid aortic valve COPD (chronic obstructive pulmonary disease) CVA (cerebral vascular accident) DDD (degenerative disc disease) Edema Endocarditis Essential hypertension Gait abnormality History of myocardial infarction Hyperlipidemia Hyperparathyroidism Hypothyroidism Migraine Obesity Schizoaffective disorder SOB (shortness of breath) Tobacco abuse Type 2 diabetes mellitus, with long-term current use of insulin Surgical History S/P angioplasty with stent S/P appendectomy S/P lumpectomy of breast S/P tonsillectomy Family History Father CAD (coronary artery disease) Cancer Mother CAD (coronary artery disease) Sister Cancer Other Diabetes Social History Quit status (tobacco): not considering quitting Second hand smoke exposure: Yes Smoking risk assessment/counseling performed?: Yes Alcohol intake: never Desire information about alcohol rehabilitation?: No Counseling given: No Desire information about substance/drug rehabilitation?: No Counseling given: No Adopted: No Caregiver/support person: Yes Lives independently: Yes Household members: none Housing: House Marital status: Number of children: 1 Highest education level completed: High School Graduate service: No Current occupational status: retired and disabled History of recent travel: No Sexually active: No Current gender identity: Female Course Vital Signs: Vital signs: Vital Signs Temperature 97.8 F 05/08/21 04:00 Pulse Rate 59 L 05/08/21 06:00 Respiratory Rate 12 05/08/21 04:00 Blood Pressure 160/79 05/08/21 04:00 Pulse Oximetry 98 05/08/21 04:00 MDM - General Adult MDM Narrative Medical decision making narrative: Patient presents here with altered mental status last known normal was 3 days ago she is also hyperglycemic no signs of DKA she is hypertensive as well blood pressure is improving here CT head is normal I spoke to hospitalist and will admit at this time. Lab Data Result diagrams: 05/07/21 02:21 05/07/21 02:21 Labs: Lab Results 04/29/21 04/29/21 04/29/21 15:40 15:40 16:37 WBC RBC Hgb Hct MCV MCH MCHC RDW Plt Count MPV Neut % (Auto) Lymph % (Auto) [place] % (Auto) Eos % (Auto) Baso % (Auto) Neut # (Auto) Lymph # (Auto) [place] # (Auto) Eos # (Auto) Baso # (Auto) Nucleated RBC % (auto) Nucleated RBCs # Specimen Type Arterial Sample Site Radial, left ABG pH 7.43 (7.35-7.45) ABG pCO2 38.2 mmHg mmHg (35-45) ABG pO2 73.4 mmHg L mmHg (80.0-100.0) ABG HCO3 25.4 mmol/L mmol/L (22-26) ABG O2 Saturation 96.5 ABG Base Excess 1.2 mmol/L mmol/L (-2.0-2.0) Shabbir Test Pos A-a O2 Gradient 3.7 mmHg L mmHg (5-10) Hematocrit 46.1 % % (37-47) Hgb O2 Saturation 91.7 % L % (95-100) Carboxyhemoglobin 4.0 %THgb %THgb (0.4-20.1) Methemoglobin 0.9 % % (0.4-1.5) Total Hemoglobin 15.0 g/dL g/dL (12-16) Ionized Calcium 1.2 mmol/L mmol/L (1.1-1.4) O2 Delivery Device Room air FiO2 21.0 % % Clock And Watch Hands Dipper ID Cak Sodium 133 mmol/L L mmol/L 135.0 mmol/L mmol/L (136-145) (131-143) Potassium 4.2 mmol/L mmol/L 4.1 mmol/L mmol/L (3.5-5.1) (3.5-5.0) Chloride 92 mmol/L L mmol/L (98-107) Carbon Dioxide 23 mmol/L mmol/L (22-29) Anion Gap 22.2 H (5-19) BUN 17 mg/dL mg/dL (8-23) Creatinine 0.9 mg/dL mg/dL (0.5-0.9) GFR Calculation 62.3 mL/min L mL/min (90-130) Glucose 569 mg/dL H* mg/dL 549.0 mg/dL H mg/dL (65-115) (70-115) POC Glucose Calculated Osmolality 304 mOsm/kg H mOsm/kg (285-295) Lactic Acid Calcium 9.1 mg/dL mg/dL (8.5-10.5) Magnesium 1.8 mg/dL mg/dL (1.7-2.3) Total Bilirubin 0.3 mg/dL mg/dL (0.15-1.2) AST 9 U/L U/L (0-32) ALT 17 U/L U/L (0-33) Alkaline Phosphatase 184 IU/L H IU/L (35-105) Creatine Kinase 73 U/L U/L (26-192) Troponin T Baseline 22 ng/L H ng/L (0-10) Troponin T 120 Minute Delta Troponin T Troponin T Hi Sens 6Hr Troponin T Hi Sens 6Hr Delta Total Protein 6.5 g/dL L g/dL (6.6-8.7) Albumin 4.4 g/dL g/dL (3.5-5.2) Globulin 2.1 g/dL g/dL (1.3-4.6) Lipase 43 U/L U/L (13-60) TSH Urine Color Urine Appearance Urine pH Ur Specific [place] Urine Protein Urine Glucose (UA) Urine Ketones Urine Blood Urine Nitrate Urine Bilirubin Urine Urobilinogen Ur Leukocyte Esterase Urine RBC Urine WBC Ur Squamous Epith Cells Amorphous Sediment Urine Bacteria Serum Ketones 04/29/21 04/29/21 04/29/21 16:52 16:52 17:42 WBC 11.4 10^3/uL H 10^3/uL (4.0-10.0) RBC 4.95 10^6/uL 10^6/uL (4.1-5.3) Hgb 14.6 g/dL g/dL (11.5-15.3) Hct 43.8 % % (37.0-47.0) MCV 88.5 fl fl (81-99) MCH 29.5 pg pg (28.0-34.0) MCHC 33.3 g/dL g/dL (30.0-36.0) RDW 12.4 % % (12.1-15.1) Plt Count 184 10^3/cmm 10^3/cmm (130-400) MPV 11.3 fL H fL (7.4-10.4) Neut % (Auto) 78.8 % % Lymph % (Auto) 14.8 % % [place] % (Auto) 5.6 % % Eos % (Auto) 0.0 % % Baso % (Auto) 0.4 % % Neut # (Auto) 8.95 10^3/uL H 10^3/uL (1.8-7.7) Lymph # (Auto) 1.7 10^3/uL 10^3/uL (0.8-4.8) [place] # (Auto) 0.6 10^3/uL 10^3/uL (0.2-0.9) Eos # (Auto) 0.0 10^3/uL 10^3/uL (0.0-0.8) Baso # (Auto) 0.0 10^3/uL 10^3/uL (0.0-0.1) Nucleated RBC % (auto) 0 % % Nucleated RBCs # 0.0 /100WBC /100WBC Specimen Type Sample Site ABG pH ABG pCO2 ABG pO2 ABG HCO3 ABG O2 Saturation ABG Base Excess Shabbir Test A-a O2 Gradient Hematocrit Hgb O2 Saturation Carboxyhemoglobin Methemoglobin Total Hemoglobin Ionized Calcium O2 Delivery Device FiO2 Clock And Watch Hands Dipper ID Sodium Potassium Chloride Carbon Dioxide Anion Gap BUN Creatinine GFR Calculation Glucose POC Glucose Calculated Osmolality Lactic Acid 1.7 mmol/L mmol/L (0.5-2.2) Calcium Magnesium Total Bilirubin AST ALT Alkaline Phosphatase Creatine Kinase Troponin T Baseline Troponin T 120 Minute 22.59 ng/L H ng/L (0-10) Delta Troponin T 0.59 ABS# ABS# (0-10) Troponin T Hi Sens 6Hr Troponin T Hi Sens 6Hr Delta Total Protein Albumin Globulin Lipase TSH Urine Color Urine Appearance Urine pH Ur Specific [place] Urine Protein Urine Glucose (UA) Urine Ketones Urine Blood Urine Nitrate Urine Bilirubin Urine Urobilinogen Ur Leukocyte Esterase Urine RBC Urine WBC Ur Squamous Epith Cells Amorphous Sediment Urine Bacteria Serum Ketones 04/29/21 04/29/21 04/29/21 17:42 17:42 18:36 WBC RBC Hgb Hct MCV MCH MCHC RDW Plt Count MPV Neut % (Auto) Lymph % (Auto) [place] % (Auto) Eos % (Auto) Baso % (Auto) Neut # (Auto) Lymph # (Auto) [place] # (Auto) Eos # (Auto) Baso # (Auto) Nucleated RBC % (auto) Nucleated RBCs # Specimen Type Sample Site ABG pH ABG pCO2 ABG pO2 ABG HCO3 ABG O2 Saturation ABG Base Excess Shabbir Test A-a O2 Gradient Hematocrit Hgb O2 Saturation Carboxyhemoglobin Methemoglobin Total Hemoglobin Ionized Calcium O2 Delivery Device FiO2 Clock And Watch Hands Dipper ID Sodium Potassium Chloride Carbon Dioxide Anion Gap BUN Creatinine GFR Calculation Glucose POC Glucose Calculated Osmolality Lactic Acid Calcium Magnesium Total Bilirubin AST ALT Alkaline Phosphatase Creatine Kinase Troponin T Baseline Troponin T 120 Minute Delta Troponin T Troponin T Hi Sens 6Hr Troponin T Hi Sens 6Hr Delta Total Protein Albumin Globulin Lipase TSH 6.15 uIU/mL H uIU/mL (0.27-4.20) Urine Color Yellow (Yellow) Urine Appearance Clear (CLEAR) Urine pH 6 (5-7) Ur Specific [place] 1.015 (1.005-1.030) Urine Protein 2+ H (Negative) Urine Glucose (UA) 4+ H (Normal) Urine Ketones Negative (Negative) Urine Blood Neg (Negative) Urine Nitrate Negative (Negative) Urine Bilirubin Neg (Negative) Urine Urobilinogen Norm mg/dL mg/dL (Negative) Ur Leukocyte Esterase Negative (Negative) Urine RBC None /hpf /hpf (0-2) Urine WBC 0-4 /hpf H /hpf (0-5) Ur Squamous Epith Cells 0-4 /hpf H /hpf (0-5) Amorphous Sediment Not Reportable Urine Bacteria Trace /hpf /hpf (NONE) Serum Ketones Negative (Negative) 04/29/21 04/29/21 20:33 21:56 WBC RBC Hgb Hct MCV MCH MCHC RDW Plt Count MPV Neut % (Auto) Lymph % (Auto) [place] % (Auto) Eos % (Auto) Baso % (Auto) Neut # (Auto) Lymph # (Auto) [place] # (Auto) Eos # (Auto) Baso # (Auto) Nucleated RBC % (auto) Nucleated RBCs # Specimen Type Sample Site ABG pH ABG pCO2 ABG pO2 ABG HCO3 ABG O2 Saturation ABG Base Excess Shabbir Test A-a O2 Gradient Hematocrit Hgb O2 Saturation Carboxyhemoglobin Methemoglobin Total Hemoglobin Ionized Calcium O2 Delivery Device FiO2 Clock And Watch Hands Dipper ID Sodium Potassium Chloride Carbon Dioxide Anion Gap BUN Creatinine GFR Calculation Glucose POC Glucose 337 mg/dL H mg/dL (70-110) Calculated Osmolality Lactic Acid Calcium Magnesium Total Bilirubin AST ALT Alkaline Phosphatase Creatine Kinase Troponin T Baseline Troponin T 120 Minute Delta Troponin T Troponin T Hi Sens 6Hr 26.65 ng/L H ng/L (0-10) Troponin T Hi Sens 6Hr Delta 4.65 ng/L ng/L (0-12) Total Protein Albumin Globulin Lipase TSH Urine Color Urine Appearance Urine pH Ur Specific [place] Urine Protein Urine Glucose (UA) Urine Ketones Urine Blood Urine Nitrate Urine Bilirubin Urine Urobilinogen Ur Leukocyte Esterase Urine RBC Urine WBC Ur Squamous Epith Cells Amorphous Sediment Urine Bacteria Serum Ketones Discharge Plan Discharge Patient Disposition: Admitted As Inpatient Admit Provider: Ramakrishna Maldonado Clinical Impression: Acute encephalopathy, Type 2 diabetes mellitus, with long-term current use of insulin, CVA (cerebral vascular accident), Hypothyroidism, COPD (chronic obstructive pulmonary disease), Essential hypertension Condition: Stable Coding Level of Care Code ED Senior Data Warehouse Developer for Chg Fwd Exam Comprehensive
[2021-04-29 16:48] LABS: ABG PCO2 38.2 mmHg (35-45); ABG PH Result 7.43 (7.35-7.45); Alveolar-Arterial Oxygen Gradi 3.7 mmHg (5-10); Arterial Blood Gas Hematocrit 46.1 % (37-47); Base Excess ABG 1.2 mmol/L (-2.0-2.0); Blood Gas Allen Test Pos; Blood Gas Operator Identificat CAK; Blood Gas Sample Site Radial, left; Blood Gas Sample Type Arterial; HCO3 ABG 25.4 mmol/L (22-26); HGB O2 Sat 91.7 % (95-100); Ionized Calcium Level - ABG 1.2 mmol/L (1.1-1.4); Methemoglobin 0.9 % (0.4-1.5); Oxygen Device ROOM AIR; Oxygen Saturation ABG 96.5; PO2 ABG 73.4 mmHg (80.0-100.0); Potassium Level - ABG 4.1 mmol/L (3.5-5.0)
[2021-04-29] MEDS: ondansetron 2 mg/ML SDV 2 mL 4 MG IVP (16:51)
[2021-04-29] MEDS: sodium chloride 0.9% 1,000 ML 999 ML IV (16:51)
[2021-04-29 17:05] LABS: Basophils % 0.4 %; Hematocrit 43.8 % (37.0-47.0); Hemoglobin 14.6 g/dL (11.5-15.3); Lymphocytes # 1.7 10^3/uL (0.8-4.8); Lymphocytes % 14.8 %; Mean Corpuscular HGB Conc 33.3 g/dL (30.0-36.0); Mean Corpuscular Hemoglobin 29.5 pg (28.0-34.0); Mean Corpuscular Volume 88.5 fl (81-99); Mean Platelet Volume 11.3 fL (7.4-10.4); Monocytes # 0.6 10^3/uL (0.2-0.9); Monocytes % 5.6 %; Neutrophils # 8.95 10^3/uL (1.8-7.7); Neutrophils % 78.8 %; Nucleated Red Blood Cells % 0 %; Platelet Count 184 10^3/cmm (130-400); Red Blood Count 4.95 10^6/uL (4.1-5.3); Red Cell Distribution Width 12.4 % (12.1-15.1); White Blood Count 11.4 10^3/uL (4.0-10.0)
[2021-04-29 17:05] LABS: Troponin(5th) Baseline 22 ng/L (0-10)
[2021-04-29 17:06] LABS: Alanine Aminotransferase 17 U/L (0-33); Albumin Level 4.4 g/dL (3.5-5.2); Alkaline Phosphatase 184 IU/L (35-105); Anion Gap 22.2 (5-19); Aspartate Amino Transferase 9 U/L (0-32); Blood Urea Nitrogen 17 mg/dL (8-23); Calcium 9.1 mg/dL (8.5-10.5); Carbon Dioxide 23 mmol/L (22-29); Chloride 92 mmol/L (98-107); Creatine Phosphokinase 73 U/L (26-192); Globulin 2.1 g/dL (1.3-4.6); Glomerular Filtration Rate 62.3 mL/min (90-130); Lipase 43 U/L (13-60); Magnesium 1.8 mg/dL (1.7-2.3); Osmolality Calculated 304 mOsm/kg (285-295); Potassium 4.2 mmol/L (3.5-5.1); Sodium 133 mmol/L (136-145); Total Bilirubin 0.3 mg/dL (0.15-1.2); Total Protein 6.5 g/dL (6.6-8.7)
[2021-04-29 17:16] LABS: Glucose 569 mg/dL (65-115)
[2021-04-29 17:21] LABS: Lactic Sepsis W/Reflex 1.7 mmol/L (0.5-2.2)
[2021-04-29] MEDS: insulin regular-human 100 units/1 mL 10 UNIT IVP (17:44)
[2021-04-29] MEDS: nicardipine 20 MG/200 ML PREMIX 5 MG IV (18:08)
--- NOTE | 2021-04-29 18:12 | ECG_ITS ---
[facility] Test Date: 2021-04-29 Pat Name: Emily Little Department: Room: Gender: Female Cook Chill Technician: : [id number] Requested By: Tony Azevedo Order Number: [id number] Reading MD: GLADYS CHEN Measurements Intervals [place] Rate: 93 P: 61 VA: 143 QRS: -48 QRSD: 113 T: 102 QT: 389 QTc: 485 Interpretive Statements SINUS RHYTHM POSSIBLE LEFT ATRIAL ENLARGEMENT [-0.1mV P-WAVE IN V1/V2] LEFT ANTERIOR FASCICULAR BLOCK [QRS AXIS <= -45, QR IN I, RS IN II] LEFT VENTRICULAR HYPERTROPHY AND ST-T CHANGE [VOLTAGE CRITERIA PLUS ST/T ABNORMALITY] POSSIBLE SEPTAL MYOCARDIAL INFARCTION , OF INDETERMINATE AGE [30 ms Q WAVE IN V1/V2] Left anterior fascicular block now present Myocardial infarct finding now present Sinus arrhythmia no longer present Electronically Signed On 04-29-2021 20:56:48 PEARL TECHNICIAN by GLADYS CHEN [email or web address]
[2021-04-29 18:19] LABS: Troponin 5 2HR 22.59 ng/L (0-10); Troponin 5 2HR Delta 0.59 ABS# (0-10)
[2021-04-29 18:35] LABS: Ketone (Acetest) Serum Negative (Negative)
[2021-04-29 18:50] LABS: Thyroid Stimulating Hormone 6.15 uIU/mL (0.27-4.20)
[2021-04-29 19:16] LABS: Bilirubin Urine Neg (Negative); Blood Urine Neg (Negative); Glucose Urine UA 4+ (Normal); Ketones Urine Negative (Negative); Leukocyte Esterase Urine Negative (Negative); Nitrate Urine Negative (Negative); Specific Gravity, Urine 1.015 (1.005-1.030); Urine Appearance Clear (CLEAR); Urine Color Yellow (Yellow); Urobilinogen Urine Norm (Negative); pH Urine 6 (5-7)
[2021-04-29 19:20] LABS: Add Urine Microscopic? YES; Protein Urine 2+ (Negative)
[2021-04-29 19:25] LABS: Add Urine Culture? No; Bacteria Urine TRACE /hpf; Squamous Epithelial Cell Urine 0-4 /hpf (0-5); WBC Urine 0-4 /hpf (0-5)
--- NOTE | 2021-04-29 20:24 | P.HP_ITS ---
Providers/Chief Complaint Primary Care Provider: Luciana Espinoza Chief Complaint: AMS, DIABETIC History of Present Illness Emily Little is a 70 year old female with past medical history of, hypertension's and CAD status post [place], CVA, diabetes, mild cognitive impairment, was brought in by the EMS with chief complaint of altered mental status. When I examined the patient she was alert oriented x1(oriented to self) history taking has been difficult, history obtained from ER chart review. last seen well 3 days ago hotel engineer waited to check today she was struggling trying to give insulin had fumbled around and then some needles and not been able to deliver to resolve glucometer read high few readings just below 600 the others maxed out at a high reading. Upon arrival in the ER she was worked up for above-mentioned complaint: She was found to be in the hypertensive emergency (BP : 230/114 ) , blood sugar on BMP:569 Imaging studies: CT head without contrast: No acute intracranial pathology EKG : Sinus Rhythm , LAFB X-ray chest: No acute findings. Review of Systems General: Reports: ROS unobtainable due to medical condition Medications/Allergies Home Medications Medication Instructions Recorded Confirmed Last Taken Type metformin 500 mg tablet,extended 500 mg PO BID #60 tab 07/06/19 04/25/21 Unknown Rx release 24 hr rosuvastatin 40 mg tablet 40 mg PO DAILY #90 tab 07/19/19 04/25/21 Unknown Rx diabetic shoes #1 ea 08/02/19 04/25/21 Unknown Rx pen needle, diabetic 32 gauge x #200 each 08/30/19 04/25/21 Unknown Rx isosorbide mononitrate 30 mg 30 mg PO QAM #30 tab 09/01/19 04/25/21 Unknown Rx tablet,extended release 24 hr metoprolol tartrate 25 mg tablet 25 mg PO BID #60 tab 09/01/19 04/25/21 Unknown Rx albuterol sulfate 2.5 mg INHALATION Q4H PRN #90 ml 10/15/19 04/25/21 Unknown Rx Diabetic Shoes #1 each 10/21/19 04/25/21 Unknown Rx aspirin 325 mg PO DAILY 12/21/19 04/25/21 Unknown History clopidogrel 75 mg PO DAILY 12/21/19 04/25/21 Unknown History sertraline [Zoloft] 200 mg PO BEDTIME 12/21/19 04/25/21 Unknown History blood sugar diagnostic each 11/12/20 04/25/21 Unknown History insulin lispro 100 unit/mL 35 unit SUBCUT TID ml 11/12/20 04/25/21 Unknown History subcutaneous solution levothyroxine 137 mcg tablet 137 mcg PO DAILY 11/12/20 04/25/21 Unknown History blood sugar diagnostic 04/25/21 04/25/21 Unknown History empagliflozin 25 mg tablet 25 mg PO DAILY 04/25/21 04/25/21 Unknown History insulin glargine 100 unit/mL (3 90 unit SUBCUT DAILY ml 04/25/21 Unknown History mL) subcutaneous pen lancets 30 gauge 04/25/21 04/25/21 Unknown History lisinopril 40 mg tablet 40 mg PO DAILY 04/25/21 04/25/21 Unknown History Allergies Allergy/AdvReac Type Severity Reaction Status Date / Time divalproex sodium Allergy Unknown Verified 04/25/21 09:36 [[facility] PFSH Acute PFSH: Medical History (Updated 04/29/21 @ 20:27 by Ramakrishna Maldonado MD) Bicuspid aortic valve COPD (chronic obstructive pulmonary disease) CVA (cerebral vascular accident) DDD (degenerative disc disease) Edema Endocarditis Essential hypertension Gait abnormality History of myocardial infarction Hyperlipidemia Hyperparathyroidism Hypothyroidism Migraine Obesity Schizoaffective disorder SOB (shortness of breath) Tobacco abuse Type 2 diabetes mellitus, with long-term current use of insulin Surgical History S/P angioplasty with stent S/P appendectomy S/P lumpectomy of breast S/P tonsillectomy Family History Father CAD (coronary artery disease) Cancer Mother CAD (coronary artery disease) Sister Cancer Other Diabetes Social History Quit status (tobacco): not considering quitting Second hand smoke exposure: Yes Smoking risk assessment/counseling performed?: Yes Alcohol intake: never Desire information about alcohol rehabilitation?: No Counseling given: No Desire information about substance/drug rehabilitation?: No Counseling given: No Adopted: No Caregiver/support person: Yes Lives independently: Yes Household members: none Housing: House Marital status: Number of children: 1 Highest education level completed: High School Graduate service: No Current occupational status: retired and disabled History of recent travel: No Sexually active: No Current gender identity: Female Vitals/I&O/Wt Last Vital Signs Pulse 86 04/29/21 18:45 Resp 28 H 04/29/21 18:45 BP 170/92 04/29/21 18:45 Pulse Ox 95 04/29/21 18:45 Physical Exam Narrative: EXAM NARRATIVE: Alert to Self HENMT: COMMON NORMALS: normocephalic and atraumatic HEAD & SCALP: normocephalic and atraumatic Chest: CHEST: Yes Symmetrical chest wall rise Resp: COMMON NORMALS: clear to auscultation bilaterally AUSCULTATION: clear to auscultation bilaterally Cardio: COMMON NORMALS: regular rate, regular rhythm, S1 normal heart sound present, S2 normal heart sound present, No rub (Cardio) and Peripheral pulses 2+ throughout RATE: regular rate RHYTHM: regular rhythm HEART SOUNDS: S1 normal heart sound present and S2 normal heart sound present PERIPHERAL PULSES: Peripheral pulses 2+ throughout OTHER: ESM In aortic Area GI: COMMON NORMALS: Normal to inspection, nondistended, normoactive bowel sounds present, Soft to palpation, non-tender, No hepatosplenomegaly present and no masses AUSCULTATION: Yes normoactive bowel sounds PALPATION: Yes Soft to palpation and Yes No hepatosplenomegaly present RECTAL EXAM: deferred Extremity: COMMON NORMALS: no clubbing, cyanosis or edema and no pedal edema Data : 04/29/21 16:52 04/29/21 15:40 A&P Assessment and plan (1) Acute encephalopathy: Status: Acute (2) Essential hypertension: Status: Acute (3) MCI (mild cognitive impairment): Status: Acute (4) Obesity (BMI 30-39.9): Status: Acute (5) CVA (cerebral vascular accident): Status: Acute (6) Hypothyroidism: Status: Chronic (7) Type 2 diabetes mellitus, with long-term current use of insulin: Status: Chronic (8) COPD (chronic obstructive pulmonary disease): Status: Acute Additional A&P Information 70 year old female with past medical history of, hypertension's and CAD status post [place], CVA, diabetes, mild cognitive impairment, was brought in by the EMS with chief complaint of altered mental status. #Acute encephalopathy: Secondary to hypertensive urgency, hyperglycemia. Patient has been on nicardipine drip in the ER, currently blood pressure is at goal. Patient has also received 10 units regular insulin in the ER. Will resume home lisinopril p.o. daily from the morning. Medium dose sliding's insulin Monitor fingerstick glucose Currently n.p.o. once the mentation improves will resume carbohydrate consistent diet. Neuro check 4-hour Fall precaution. #Hypertensive urgency : Plan as above #Diabetes: Plan as above #Hypothyroidism: TSH: 6.15 Continue home levothyroxine #History of CVA: Aspirin, statin,' Plavix. #CODE STATUS : Full code #DVT prophylaxis: On Lovenox Attestations Medical Necessity Statement*: Patient needs to be in hospital for management of acute metabolic encephalopathy. Anticipated length of stay greater than 2 midnights. Coding Level of Care Code Acute Real Estate Transaction Manager for [facility] Fwd Exam Detailed Diagnoses Acute encephalopathy G93.40 Essential hypertension I10 MCI (mild cognitive impairment) G31.84 Obesity (BMI 30-39.9) E66.9 CVA (cerebral vascular accident) I63.9 Hypothyroidism E03.9 Type 2 diabetes mellitus, with long-term current use of insulin E11.9; Z79.4 COPD (chronic obstructive pulmonary disease) J44.9
[2021-04-29] MEDS: enoxaparin 40 mg/0.4 mL Syringe SUBCUT (20:34)
[2021-04-29 20:36] LABS: Glucose Point of Care 337 mg/dL (70-110)
--- NOTE | 2021-04-29 22:12 | ECG_ITS ---
[facility] Test Date: 2021-04-29 Pat Name: Emily Little Department: Room: Gender: Female Spike Driver: : 1950 Requested By: Tony Azevedo Order Number: [id number] Reading MD: GLADYS CHEN Measurements Intervals [place] Rate: 85 P: 68 NC: 138 QRS: -52 QRSD: 108 T: 82 QT: 382 QTc: 457 Interpretive Statements SINUS RHYTHM LEFT ANTERIOR FASCICULAR BLOCK [QRS AXIS <= -45, QR IN I, RS IN II] POSSIBLE LEFT VENTRICULAR HYPERTROPHY [VOLTAGE CRITERIA PLUS LAE OR QRS WIDENING] POSSIBLE SEPTAL MYOCARDIAL INFARCTION , PROBABLY OLD [30 ms Q WAVE IN V1/V2] Compared to ECG 04/29/2021 18:31:56 ST (T wave) deviation no longer present Sinus arrhythmia no longer present Left-axis deviation no longer present Myocardial infarct finding still present Electronically Signed On 04-29-2021 20:55:08 LARRIMAN HELPER by GLADYS CHEN [id number]
[2021-04-29] MEDS: nicardipine 20 MG/200 ML PREMIX 50 MG IV (22:28)
[2021-04-29 22:39] LABS: Troponin 5 6HR 26.65 ng/L (0-10); Troponin 5 6HR Delta 4.65 ng/L (0-12)
[2021-04-30] VITALS (59 sets, daily range): BP systolic 118–190; BP diastolic 57–135; PULSE 69–103; RESP 9–29; TEMP 36.5–36.9; O2SAT 89–98; BMI 31.7
[2021-04-30] MEDS: sodium chloride 0.9% 1,000 ML 75 ML IV ×3 (01:14→23:11)
--- NOTE | 2021-04-30 01:51 | PC.NURSE ---
cardene drip when this nurse came on shift pt cardene drip was a 5 mg/ hr which is 50 ml/ hr.
[2021-04-30] MEDS: nicardipine 20 MG/200 ML PREMIX 30 MG IV (03:26)
--- NOTE | 2021-04-30 03:44 | PC.NURSE ---
iv and bedding pt pulled out iv. new iv initiated and bed changed to floor bed. brief placed on pt. pt pulled out iv again. another new iv established. pt chucks and brief changed.
--- NOTE | 2021-04-30 05:32 | PC.NURSE ---
leanne pt pulled out 2 iv's so we utilized our optoelectronics engineer to stay with pt to keep her from pulling at lines
[2021-04-30 06:23] LABS: Basophils % 0.3 %; Hematocrit 44.3 % (37.0-47.0); Lymphocytes # 1.9 10^3/uL (0.8-4.8); Lymphocytes % 17.7 %; Mean Corpuscular HGB Conc 33.9 g/dL (30.0-36.0); Mean Corpuscular Hemoglobin 29.7 pg (28.0-34.0); Mean Corpuscular Volume 87.7 fl (81-99); Mean Platelet Volume 11.1 fL (7.4-10.4); Monocytes # 0.5 10^3/uL (0.2-0.9); Monocytes % 4.5 %; Neutrophils # 8.27 10^3/uL (1.8-7.7); Neutrophils % 77.1 %; Nucleated Red Blood Cells % 0 %; Platelet Count 181 10^3/cmm (130-400); Red Blood Count 5.05 10^6/uL (4.1-5.3); Red Cell Distribution Width 12.3 % (12.1-15.1); White Blood Count 10.7 10^3/uL (4.0-10.0)
[2021-04-30 06:33] LABS: Glucose Point of Care 385 mg/dL (70-110)
[2021-04-30 06:34] LABS: Anion Gap 18.3 (5-19); Blood Urea Nitrogen 14 mg/dL (8-23); Calcium 8.3 mg/dL (8.5-10.5); Carbon Dioxide 22 mmol/L (22-29); Chloride 100 mmol/L (98-107); Glomerular Filtration Rate 71.3 mL/min (90-130); Glucose 382 mg/dL (65-115); Osmolality Calculated 298 mOsm/kg (285-295); Potassium 4.3 mmol/L (3.5-5.1); Sodium 136 mmol/L (136-145)
[2021-04-30] MEDS: insulin lispro 100 unit/1 mL SUBCUT ×2 (07:43→16:57)
--- NOTE | 2021-04-30 09:40 | PC.PHAR ---
pt unable to verify medications-medications entered are meds from previous entered med list and from what [facility] states they have filled recently-on 04/25/21 luciana johnston dced lasix 40mg,prilosec 40mg, trazodone 150mg,propranolol 40mg,reglan 5mg and amlodipine 10mg-called pts caregiver matthew [phone] left message 08:36-
[2021-04-30 11:19] LABS: Free T4 Free Thyroxine 0.77 ng/dL (0.82-1.77)
[2021-04-30 12:09] LABS: Adenovirus Not Detected (NOT DETECT); Chlamydia Pneumoniae Not Detected (NOT DETECT); Coronavirus 229E,HKU1,NL63,OC4 Not Detected (NOT DETECT); Human Metapneumovirus Not Detected (NOT DETECT); Human Rhinovirus/Enterovirus Not Detected (NOT DETECT); Influenza A Not Detected (NOT DETECT); Influenza A H1 Not Detected (NOT DETECT); Influenza A H1-2009 Not Detected (NOT DETECT); Influenza A H3 Not Detected (NOT DETECT); Influenza B Not Detected (NOT DETECT); Mycoplasma Pneumoniae Not Detected (NOT DETECT); Parainfluenza Virus Type 1 Not Detected (NOT DETECT); Parainfluenza Virus Type 2 Not Detected (NOT DETECT); Parainfluenza Virus Type 3 Not Detected (NOT DETECT); Parainfluenza Virus Type 4 Not Detected (NOT DETECT); Respiratory Syncytial Virus A Not Detected (NOT DETECT); Respiratory Syncytial Virus B Not Detected (NOT DETECT); SARS-COV-2 Not Detected (NOT DETECT)
[2021-04-30 16:39] LABS: Glucose Point of Care 161 mg/dL (70-110)
[2021-04-30 16:39] LABS: Glucose Point of Care 251 mg/dL (70-110)
[2021-04-30 18:06] LABS: Glucose Point of Care 213 mg/dL (70-110)
[2021-04-30 20:15] LABS: Glucose Point of Care 158 mg/dL (70-110)
--- NOTE | 2021-04-30 21:38 | P.PN_ITS ---
Subjective Subjective: Interval history: Very sluggish responses, generally weak. Denies pain, denies discomfort. Intermittent tremors. Cough. Appears to have possibly some weakness of right upper extremity, although moves all extremities. Follows commands to squeeze with the left hand. Vitals/I&O/Wt Last Vital Signs Temp 98 F 04/30/21 20:00 Pulse 88 04/30/21 20:00 Resp 15 04/30/21 20:00 BP 173/110 04/30/21 20:00 Pulse Ox 93 04/30/21 20:00 04/30/21 04/30/21 04/30/21 06:59 14:59 22:59 Intake Total 1200.000 / 6039.390 1491 / 1200 1000 / 2200 Balance 1200.000 / 7879.395 7631 / 1200 1000 / 2200 Physical Exam Const: COMMON NORMALS: no acute distress HENMT: COMMON NORMALS: oropharynx normal Neck/C-Spine: COMMON NORMALS: no JVD Resp: COMMON NORMALS: normal respiratory effort and clear to auscultation bilaterally AUSCULTATION: clear to auscultation bilaterally Cardio: COMMON NORMALS: no JVD, regular rhythm, S1 normal heart sound present, S2 normal heart sound present and No murmurs present (Cardio) RHYTHM: regular rhythm HEART SOUNDS: S1 normal heart sound present and S2 normal heart sound present GI: COMMON NORMALS: Normal to inspection, nondistended, normoactive bowel sounds present, Soft to palpation and non-tender PALPATION: Yes Soft to palpation Extremity: COMMON NORMALS: no joint enlargement and no pedal edema Neuro: OTHER: Ordered mild flattening of right nasolabial fold. Does not follow commands to smile. Very limited neuro exam. Very sluggish responses, weak. Flexed right upper extremity, does move it, but with limitation, squeezes on the left, none on the right. Unclear whether or not following commands well, or if there is in fact some chronic right-sided weakness with history of CVA. Skin: COMMON NORMALS: no rashes or lesions noted GENERAL SKIN EXAM: no rashes or lesions noted Data : 04/30/21 06:05 04/30/21 06:05 A&P Assessment and plan (1) Acute encephalopathy: Blood pressures overall have been better through the day. Hypoglycemia also has been improving. With noted cough, chills, requested COVID-19 PCR which was negative. Has history of CVA, I do not see what chronic residual symptoms she may have. Appears perhaps right-sided weakness, with noted right nasolabial fold flattening. CT of the head was nonacute. Old lacunar infarcts noted. Cannot exclude that she may have had another CVA. Would benefit from MRI, but at this time would not follow commands/stay still to be able to undergo the test. Since she has been unable to take oral medications, will change aspirin to [place]. For now hold sertraline. TSH mildly elevated, free T4 mildly low, would benefit from with thyroxine dose increase, but doubt this is causing current encephalopathy. Superimposed on mild cognitive impairment. Status: Acute (2) Essential hypertension: Unable to take oral medications reliably, including multifocal add IV m etoprolol for now. Continue to monitor and optimize blood pressure control. Status: Acute (3) MCI (mild cognitive impairment): Status: Acute (4) Obesity (BMI 30-39.9): Status: Acute (5) CVA (cerebral vascular accident): Status: Acute (6) Hypothyroidism: Would benefit from mild increasing levothyroxine dose. Status: Chronic (7) Type 2 diabetes mellitus, with long-term current use of insulin: Sliding scale insulin. Restart Lantus at lower dose currently has has not been able to eat. Status: Chronic (8) COPD (chronic obstructive pulmonary disease): Status: Acute Attestations Medical Necessity Statement*: Continue admission for assessment management of acute encephalopathy. Coding Level of Care Code Acute Regulatory Compliance Manager for [facility] Fwd Diagnoses Acute encephalopathy G93.40 Essential hypertension I10 MCI (mild cognitive impairment) G31.84 Obesity (BMI 30-39.9) E66.9 CVA (cerebral vascular accident) I63.9 Hypothyroidism E03.9 Type 2 diabetes mellitus, with long-term current use of insulin E11.9; Z79.4 COPD (chronic obstructive pulmonary disease) J44.9
[2021-04-30] MEDS: aspirin 300 mg Supp PR (22:59)
[2021-04-30] MEDS: enoxaparin 40 mg/0.4 mL Syringe SUBCUT (23:00)
[2021-04-30] MEDS: metoprolol tartrate 1 mg/1 mL SDV 5 mL 2.5 MG IVP (23:02)
[2021-04-30] MEDS: insulin glargine 100 units/1 mL 20 UNIT SUBCUT (23:04)
[2021-05-01] VITALS (8 sets, daily range): BP systolic 144–184; BP diastolic 69–101; PULSE 55–81; RESP 12–26; TEMP 36.5–37; O2SAT 93–99
[2021-05-01 03:55] LABS: Basophils % 0.2 %; Hematocrit 43.9 % (37.0-47.0); Hemoglobin 14.8 g/dL (11.5-15.3); Lymphocytes # 2.1 10^3/uL (0.8-4.8); Lymphocytes % 16.1 %; Mean Corpuscular HGB Conc 33.7 g/dL (30.0-36.0); Mean Corpuscular Hemoglobin 29.5 pg (28.0-34.0); Mean Corpuscular Volume 87.5 fl (81-99); Mean Platelet Volume 10.8 fL (7.4-10.4); Monocytes # 0.7 10^3/uL (0.2-0.9); Monocytes % 5.4 %; Neutrophils # 10.03 10^3/uL (1.8-7.7); Neutrophils % 78.1 %; Nucleated Red Blood Cells % 0 %; Platelet Count 199 10^3/cmm (130-400); Red Blood Count 5.02 10^6/uL (4.1-5.3); Red Cell Distribution Width 12.5 % (12.1-15.1); White Blood Count 12.8 10^3/uL (4.0-10.0)
[2021-05-01 04:16] LABS: Alanine Aminotransferase 14 U/L (0-33); Albumin Level 3.7 g/dL (3.5-5.2); Alkaline Phosphatase 158 IU/L (35-105); Anion Gap 17.6 (5-19); Aspartate Amino Transferase 11 U/L (0-32); Blood Urea Nitrogen 13 mg/dL (8-23); Calcium 8.5 mg/dL (8.5-10.5); Carbon Dioxide 22 mmol/L (22-29); Chloride 104 mmol/L (98-107); Globulin 2.4 g/dL (1.3-4.6); Glomerular Filtration Rate 83.2 mL/min (90-130); Glucose 260 mg/dL (65-115); Osmolality Calculated 299 mOsm/kg (285-295); Potassium 3.6 mmol/L (3.5-5.1); Sodium 140 mmol/L (136-145); Total Bilirubin 0.5 mg/dL (0.15-1.2); Total Protein 6.1 g/dL (6.6-8.7)
[2021-05-01] MEDS: metoprolol tartrate 1 mg/1 mL SDV 5 mL 2.5 MG IVP ×3 (04:59→16:12)
[2021-05-01] MEDS: isosorbide mononitrate ER 30 mg Tablet PO (05:03)
[2021-05-01 06:38] LABS: Glucose Point of Care 256 mg/dL (70-110)
--- NOTE | 2021-05-01 07:43 | PC.NURSE ---
patient with one on one sitter all night. Patient blood pressure elevated throughout the night. IV metroprolol given per md order. NPO for us in am. Will monitor.
[2021-05-01] MEDS: aspirin 300 mg Supp PR (09:46)
--- NOTE | 2021-05-01 10:28 | PC.CHAP ---
Pastoral Care Encounter/Spiritual Assessment Type of Contact [] Declined service crew supervisor visit [] Patient/Family/Request visit [] Outpatient visit [] Follow-up visit [] Physician referral [] Code/Alert [x] Routine visit [] Staff referral [] Actively dying [] Patient sleeping [] Family support [] [] Out of room [] Palliative care [] [] Receiving care in room [] Pre-surgical visit [] Trauma [] Long length of stay [] ICU visit [] Other: Relational/Emotional Strength [] Patient feels connected with others/family/visitors/staff [] Distress [] Loneliness/isolation [] Abandonment Spirituality of Patient [] Person of Verónica [] Attends Pentecostalism of their Verónica [] Believes in Prayer [] Reads Bible or Judaism materials [] There are Spiritual issues to be addressed Tailings Man Interventions [x] Prayer [] Active listening [] Non-anxious presence [] Spiritual/emotional support [] Crisis/trauma care [] Spiritual counseling [] Bereavement support [] Provided bereavement packet [] Provided Bible/devotional materials [] Provided toy/stuffed animal, coloring book to patient or family member [] Provided Communion [] Anointing/[place] [] Salvation x] Completed spiritual assessment [] Other: Impact on Illness or Injury [] Angry [] Fearful [] Anxious [] Often cries [] Exhaustion [] Unable to work [] Unable to attend voodoo [] Unable to walk/stand [] Unable to read [] Unable to drive [] Unable to eat/drink [] Unable to sleep [] Unable to be with family [] Patient intubated [] Other: Summary Time spent with patient 5 min
--- NOTE | 2021-05-01 10:38 | PC.NURSE ---
Physician orders to hold morning PO medications due to AMS.
[2021-05-01 11:13] LABS: Glucose Point of Care 256 mg/dL (70-110)
[2021-05-01] MEDS: insulin lispro 100 unit/1 mL SUBCUT (12:23)
[2021-05-01 13:59] LABS: Estmated Average Glucose 286; Hemoglobin A1C 11.6 % (4.0-6.0)
[2021-05-01] MEDS: sodium chloride 0.9% 1,000 ML 75 ML IV (14:07)
[2021-05-01 15:30] LABS: Glucose Point of Care 102 mg/dL (70-110)
--- NOTE | 2021-05-01 15:38 | PC.NURSE ---
Received orders to place garza catheter from physician.
--- NOTE | 2021-05-01 19:30 | P.PN_ITS ---
Subjective Subjective: Interval history: Slightly more responsive and interactive today. However, mostly one-word answers. Follows some basic commands now like he takes deep breaths for auscultation. Moves her hands, feet. Vitals/I&O/Wt Last Vital Signs Temp 98.2 F 05/01/21 10:36 Pulse 81 05/01/21 18:57 Resp 18 05/01/21 18:57 BP 174/89 05/01/21 18:57 Pulse Ox 94 05/01/21 18:57 05/01/21 05/01/21 05/01/21 06:59 14:59 22:59 Intake Total 1000 / 1000 Balance 1000 / 1000 Weight last 48 hrs Weight 73.709 kg Physical Exam Const: COMMON NORMALS: no acute distress ORIENTATION/CONSCIOUSNESS: Yes confused HENMT: COMMON NORMALS: oropharynx normal Neck/C-Spine: COMMON NORMALS: no JVD Resp: COMMON NORMALS: normal respiratory effort and clear to auscultation bilaterally AUSCULTATION: clear to auscultation bilaterally Cardio: COMMON NORMALS: no JVD, regular rhythm, S1 normal heart sound present, S2 normal heart sound present and No murmurs present (Cardio) RHYTHM: regular rhythm HEART SOUNDS: S1 normal heart sound present and S2 normal heart sound present GI: COMMON NORMALS: Normal to inspection, nondistended, normoactive bowel sounds present, Soft to palpation and non-tender PALPATION: Yes Soft to palpation Extremity: COMMON NORMALS: no joint enlargement and no pedal edema Neuro: OTHER: Flattening of right nasolabial fold. Does not follow commands to smile. R side weaker, david UE, although difficult to assess with limited exam. Skin: COMMON NORMALS: no rashes or lesions noted GENERAL SKIN EXAM: no rashes or lesions noted Urinary Catheter Management^: Doshi: Cath Placed During This Visit: yes Urinary Catheter Date of Insertion: 05/01/21 Urinary Catheter Time of Insertion: 14:30 Data : 05/01/21 03:35 05/01/21 03:35 A&P Assessment and plan (1) Acute encephalopathy: Persistent right-sided weakness, flattening of nasolabial fold. Her caregiver reports history of TIA with similar symptoms which resolved about a year ago. This time they appear to be persistent. She appears to have some aphasia, with one-word answers, but no more. Now is following commands little bit better. We are not finding evidence of acute infection, although she is noted to have some leukocytosis now. No evidence of pneumonia on presentation, although is at risk of aspiration currently, discussed with her caregiver. For now NPO. Continue speech therapy follow-up. Discussed concern for CVA. We have not been able to assess better with MRI, which would be beneficial and she is able to follow commands well, stay still for the test. As she has been n.p.o. we have changed aspirin to rectal. Plavix has been on hold. Will assess carotid duplex. TTE. Continue telemetry monitoring. PT OT assessment, and as she is requiring significant amount of assistance, will require placement to long term facility at least temporarily depending on her recovery. Caregiver tells me that she has a public guardian, Levi Saez. Would benefit from MRI, but at this time would not follow commands/stay still to be able to undergo the test. Since she has been unable to take oral medications, will change aspirin to [place]. For now holding sertraline. TSH mildly elevated, free T4 mildly low, would benefit from with thyroxine dose increase, but doubt this is causing current encephalopathy. Superimposed on mild cognitive impairment. Status: Acute (2) Essential hypertension: Unable to take oral medications reliably, including multifocal add IV metoprolol for now. Continue to monitor and optimize blood pressure control. Status: Acute (3) MCI (mild cognitive impairment): Status: Acute (4) Obesity (BMI 30-39.9): Status: Acute (5) CVA (cerebral vascular accident): Status: Acute (6) Hypothyroidism: Would benefit from mild increasing levothyroxine dose. Status: Chronic (7) Type 2 diabetes mellitus, with long-term current use of insulin: Uncontrolled diabetes. A1c 11.6. Unfortunately she has not adherent well with her insulin therapy, and caregiver tries to make sure she takes it as well as she can, but unless she has constant supervision not likely to be taking her insulin regularly. Sliding scale insulin. Low-dose Lantus. Status: Chronic (8) COPD (chronic obstructive pulmonary disease): Status: Acute Attestations Medical Necessity Statement*: Continue admission for assessment management of acute encephalopathy, possible CVA. Coding Level of Care Code Acute Diagnostic Cardiac Sonographer for [employer] Diagnoses Acute encephalopathy G93.40 Essential hypertension I10 MCI (mild cognitive impairment) G31.84 Obesity (BMI 30-39.9) E66.9 CVA (cerebral vascular accident) I63.9 Hypothyroidism E03.9 Type 2 diabetes mellitus, with long-term current use of insulin E11.9; Z79.4 COPD (chronic obstructive pulmonary disease) J44.9
[2021-05-01 20:17] LABS: Glucose Point of Care 121 mg/dL (70-110)
[2021-05-01] MEDS: enoxaparin 40 mg/0.4 mL Syringe SUBCUT (21:17)
[2021-05-01] MEDS: metoprolol tartrate 1 mg/1 mL SDV 5 mL 5 MG IVP (21:17)
[2021-05-01] MEDS: insulin glargine 100 units/1 mL 20 UNIT SUBCUT (21:18)
--- NOTE | 2021-05-01 21:58 | US_ITS ---
WS: [id number] RIGHT UPPER QUADRANT ULTRASOUND HISTORY: hepatobiliary - AMS, AP elevation COMPARISON: 10/02/2016 renal ultrasound Gallbladder ultrasound 09/13/2015. Liver: 15.3 cm in length. Normal size liver. No bile duct dilatation or mass. Portal Vein: Normal hepatopetal flow with monophasic waveform. Gallbladder: Normally distended gallbladder with no stones or wall thickening. CBD: 0.5 cm Pancreas: Normal size and echogenicity. Right kidney: 11.6 cm in length. Normal size and echogenicity. No hydronephrosis or mass. Aorta and IVC: Unremarkable abdominal aorta and IVC. No ascites. US/US abdomen limited [id number] IMPRESSION: Normal RIGHT upper quadrant ultrasound.
[2021-05-02] VITALS (11 sets, daily range): BP systolic 157–220; BP diastolic 80–104; PULSE 53–85; RESP 16–24; TEMP 36.3–36.9; O2SAT 92–97
[2021-05-02 03:41] LABS: Basophils % 0.3 %; Hematocrit 42.5 % (37.0-47.0); Hemoglobin 14.3 g/dL (11.5-15.3); Lymphocytes # 2.2 10^3/uL (0.8-4.8); Lymphocytes % 22.6 %; Mean Corpuscular HGB Conc 33.6 g/dL (30.0-36.0); Mean Corpuscular Hemoglobin 30.4 pg (28.0-34.0); Mean Corpuscular Volume 90.2 fl (81-99); Monocytes # 0.6 10^3/uL (0.2-0.9); Monocytes % 6.3 %; Neutrophils # 6.89 10^3/uL (1.8-7.7); Neutrophils % 70.6 %; Nucleated Red Blood Cells % 0 %; Platelet Count 176 10^3/cmm (130-400); Red Blood Count 4.71 10^6/uL (4.1-5.3); Red Cell Distribution Width 12.5 % (12.1-15.1); White Blood Count 9.8 10^3/uL (4.0-10.0)
[2021-05-02] MEDS: hyDRALAzine 20 mg/mL INJ 1 mL 5 MG IVP ×3 (03:49→12:58)
[2021-05-02 04:07] LABS: Alanine Aminotransferase 13 U/L (0-33); Albumin Level 3.2 g/dL (3.5-5.2); Alkaline Phosphatase 126 IU/L (35-105); Anion Gap 18.2 (5-19); Aspartate Amino Transferase 14 U/L (0-32); Blood Urea Nitrogen 14 mg/dL (8-23); Carbon Dioxide 20 mmol/L (22-29); Chloride 106 mmol/L (98-107); Globulin 2.4 g/dL (1.3-4.6); Glomerular Filtration Rate 83.2 mL/min (90-130); Glucose 142 mg/dL (65-115); Osmolality Calculated 295 mOsm/kg (285-295); Potassium 3.2 mmol/L (3.5-5.1); Sodium 141 mmol/L (136-145); Total Bilirubin 0.4 mg/dL (0.15-1.2); Total Protein 5.6 g/dL (6.6-8.7)
[2021-05-02 06:41] LABS: Glucose Point of Care 146 mg/dL (70-110)
[2021-05-02] MEDS: sodium chloride 0.9% 1,000 ML 50 ML IV (08:15)
[2021-05-02] MEDS: metoprolol tartrate 1 mg/1 mL SDV 5 mL 5 MG IVP ×3 (11:26→23:28)
[2021-05-02] MEDS: lidocaine 1% 5 ML in potassium chloride premix 100 ML 25 ML IV (11:30)
[2021-05-02 13:28] LABS: Glucose Point of Care 153 mg/dL (70-110)
--- NOTE | 2021-05-02 13:45 | PC.NURSE ---
hydralazine 5 mg given iv at 1300 for bp 220/105.bp came down to 188/84
[2021-05-02 16:48] LABS: Glucose Point of Care 148 mg/dL (70-110)
--- NOTE | 2021-05-02 18:14 | PC.NURSE ---
pt has become progressively stronger on right side today.worked with p.t. and even stood at bedside! still not approved for food or liquids by s.t..pt has not spoke.did have some tearful episodes this morning.
--- NOTE | 2021-05-02 18:32 | PC.NURSE ---
nihon kohden and manual blood pressures have not been correlating today.manual bp's are significantly lower than nihon [place] readings.
--- NOTE | 2021-05-02 19:31 | USCV_ITS ---
LittleEmily singleton Age: 70 Gender: F : 1950 Exam Date: 05/02/2021 10:01 Ordering Phys: Gage Gomez MD Technologist: DRU Exam Location: [facility] [place] Indication: POSSIBLE CVA PT WAS UNRESPONSIVE IN CSU Risk Factors: POSSIBLE CVA PT WAS UNRESPONSIVE IN CSU Previous Vascular Surgery: NONE Right Brachial BP: / Left Brachial BP: / Right Left Velocity (cm/s) Spectral Plaque Velocity (cm/s) Spectral Plaque Syst/Diast Broadening Syst/Diast Broadening 46.10/ 5.60 Min Homo Prox CCA 54.90 / 12.80 Min None 42.70/ 5.10 Min Homo Mid CCA 67.00 / 13.80 Min Homo 40.60/ 6.80 Min Homo Distal CCA 57.30 / 11.00 Min Homo 52.05/ 8.55 Min Homo Prox ICA 36.90 / 9.30 Min Homo 52.80/ 10.10 Min Homo Mid ICA 73.00 / 21.70 Min None 47.00/ 11.30 Mod Homo Distal ICA 114.20/ 24.60 Min Homo 134.10 Mod Homo ECA 80.20 Mod Homo 1.14 ICA/CCA 1.70 Antegrade Vertebral Antegrade 27.20/ 4.80 cm/s 29.80/ 7.70 cm/s Tri Subclavian Tri 92.60 87.10 FINDINGS Comparison: none available. No significant elevation of systolic or diastolic velocities. Diastolic velocities are decreased. Diffuse bilateral scattered calcified plaque and intimal thickening throughout the common carotid arteries and extending through the bifurcation. Antegrade vertebral arteries. CONCLUSIONS Bilateral ICA stenosis less than 50%. Mild atherosclerosis. Dr. Denae Laguerre DO (Electronically Signed) Final Date: 02 May 2021 11:58 S
--- NOTE | 2021-05-02 19:44 | USCV_ITS ---
Emily Little Age: 70 Gender: F : 1950 Exam Date: 05/02/2021 09:03 Ordering Phys: Gage Gomez MD Technologist: DRU Exam Location: [facility] [place] Indication: POSSIBLE CVA PT WAS UNRESPONSIVE IN CSU BP: 174 / 80 HR: 78 Rhythm: Sinus Technical Quality: Adequate MEASUREMENTS (Male / Female) Normal Values 2D ECHO LV Diastolic Diameter PLAX 4.3 cm 4.2 - 5.9 / 3.9 - 5.3 cm LV Systolic Diameter PLAX 2.3 cm IVS Diastolic Thickness 1.3 cm 0.6 - 1.0 / 0.6 - 0.9 cm IVS Systolic Thickness 2.1 cm LVPW Diastolic Thickness 1.2 cm 0.6 - 1.0 / 0.6 - 0.9 cm LVPW Systolic Thickness 1.2 cm LVOT Diameter 1.6 cm LV Ejection Fraction 2D Teich 78.1 % LV Ejection Fraction MOD 2C 27.1 % LV Ejection Fraction 2C AL 33.1 % LA Diameter 3.5 cm LA Width 2.0 cm LA Height 4.5 cm RA Width 2.7 cm RA Height 3.7 cm Aorta at Sinotubular Diameter 3.0 cm M-MODE Aortic Annulus Diameter 3.1 cm LA Ao Ratio MM 1.1 MV E Point Septal Separation 0.4 cm DOPPLER AV Peak Velocity 224.0 cm/s LVOT Peak Velocity 89.0 cm/s AV Area Cont Eq vti 0.9 cm squared AV Area Cont Eq pk 0.8 cm squared MV Peak Velocity 123.0 cm/s MV Area PHT 3.9 cm squared Mitral E to A Ratio 0.7 MV E' Velocity 41.0 cm/s Mitral E to MV E' Ratio 11.7 Mitral E to LV E' Lateral Ratio 10.5 Mitral E to LV E' Septal Ratio 13.3 TR Peak Velocity 208.0 cm/s TR Peak Gradient 17.3 mmHg Right Atrial Pressure 5.0 mmHg Pulmonary Artery Systolic Pressu 22.3 mmHg PV Peak Velocity 92.0 cm/s RV Acceleration Time 0.1 s RV Ejection Time 0.3 s RV AcT/ET 0.3 FINDINGS Left Ventricle Normal left ventricular cavity size. Normal left ventricular systolic function. No regional wall motion abnormalities. Left ventricular ejection fraction is estimated at 65 %. Grade I/IV diastolic dysfunction (abnormal relaxation filling pattern), normal to mildly elevated filling pressures. Right Ventricle The right ventricle is normal in size and function. Right Atrium The right atrium is normal in size. Left Atrium The left atrium is normal in size. Mitral Valve Moderately thickened mitral valve. No mitral valve stenosis. Trace mitral valve regurgitation. Aortic Valve Severe aortic valve calcification. Severe aortic valve stenosis, mean gradient 10.9 mmHg, EMILY 0.93 cm squared.no aortic valve regurgitation. Tricuspid Valve Structurally normal tricuspid valve without significant stenosis or regurgitation. Pulmonary artery systolic pressure is normal. Pulmonic Valve Structurally normal pulmonic valve without significant stenosis. There is no pulmonic regurgitation. Pericardium Normal pericardium without effusion. Aorta Normal ascending aorta dimension. CONCLUSIONS 1-Normal left ventricular cavity size. Normal left ventricular systolic function. No regional wall motion abnormalities. Left ventricular ejection fraction is estimated at 65 %. Grade I/IV diastolic dysfunction (abnormal relaxation filling pattern), normal to mildly elevated filling pressures. 2-Severe aortic valve calcification. Severe aortic valve stenosis, mean gradient 10.9 mmHg, EMILY 0.93 cm squared.no aortic valve regurgitation. 3-Moderately thickened mitral valve. No mitral valve stenosis. Trace mitral valve regurgitation. 4-There is no pericardial effusion. 5-Pulmonary artery systolic pressure is within normal limits. 6-Right atrial pressure is around 5 mm of mercury. 7-When compared to the prior echocardiogram dated 03 July 2020 there is worsening of aortic valve from moderate stenosis 1.4 cm 2, moderate to severe 0.94 cm2 with mean pressure gradient of 10 mmHg. Due to discrepancy in the aortic valve area and gradient across the aortic valve, transesophageal echocardiogram may need to performed to assess the severity of the valve. Harshad Dorsey MD (Electronically Signed) Final Date: 02 May 2021 17:52 S
--- NOTE | 2021-05-02 20:41 | PM.PN ---
Subjective Subjective: Interval history: She is more alert today, more interactive. Following commands much better. However, still significant difficulties with speaking/expressing thoughts. She denies any pain, discomfort. Denies any headache. She knows she is at the hospital, [facility] . Is not able to answer any questions regarding prehospitalization timeline or events. Vitals/I&O/Wt Last Vital Signs Temp 98.1 F 05/02/21 20:00 Pulse 85 05/02/21 20:00 Resp 18 05/02/21 20:00 BP 173/97 05/02/21 20:00 Pulse Ox 97 05/02/21 20:00 05/02/21 05/02/21 05/02/21 06:59 14:59 22:59 Intake Total 0 / 1000 1000 / 1000 0 / 1000 Output Total 800 / 800 750 / 750 Balance -800 / 200 1000 / 1000 -750 / 250 Weight last 48 hrs Weight 73.709 kg Physical Exam Const: COMMON NORMALS: no acute distress ORIENTATION/CONSCIOUSNESS: Yes confused HENMT: COMMON NORMALS: oropharynx normal Neck/C-Spine: COMMON NORMALS: no JVD Resp: COMMON NORMALS: normal respiratory effort and clear to auscultation bilaterally AUSCULTATION: clear to auscultation bilaterally Cardio: COMMON NORMALS: no JVD, regular rhythm, S1 normal heart sound present, S2 normal heart sound present and No murmurs present (Cardio) RHYTHM: regular rhythm HEART SOUNDS: S1 normal heart sound present and S2 normal heart sound present GI: COMMON NORMALS: Normal to inspection, nondistended, normoactive bowel sounds present, Soft to palpation and non-tender PALPATION: Yes Soft to palpation Extremity: COMMON NORMALS: no joint enlargement and no pedal edema Neuro: SPEECH: expressive aphasia SENSORY EXAM: Yes Normal double simultaneous stimulation for sensation MOTOR EXAM: Other motor observations present (3/5, 2/5 RUE) OTHER: Visual duncan difficult to assess, but appear to be near normal Follows commands much more readily Skin: COMMON NORMALS: no rashes or lesions noted GENERAL SKIN EXAM: no rashes or lesions noted Urinary Catheter Management^: Doshi: Cath Placed During This Visit: yes Reason for Continuing Indwelling Catheter: Accurate Measurement of Urinary Output in Critically Ill Patients Urinary Catheter Date of Insertion: 05/01/21 Urinary Catheter Time of Insertion: 14:30 Data : 05/02/21 02:34 05/02/21 02:34 A&P Assessment and plan (1) Acute encephalopathy: Expressive aphasia, right nasolabial fold flattening, right upper extremity weakness, concern is for CVA, although symptoms appear to be showing some improvement. Appears to be moving her right upper currently better today. Some mild improvement in aphasia. Gives mostly short/one-word answers if able to. Will request for additional assessment by MRI brain. Carotid duplex with bilateral ICA stenosis less than 50%. TTE with normal ejection fraction, grade 1 diastolic dysfunction, severe aortic valve stenosis, mean gradient 10.9, EMILY 0.93. Worsened aortic stenosis from June 2020. Continue ST, not ready for oral intake yet. Continue PT, OT. Ongoing discharge planning by case management. She has not been able to understand or follow complex instructions. Living alone posing a danger to herself. Will need placement, guardianship. For now holding sertraline. TSH mildly elevated, free T4 mildly low, would benefit from with thyroxine dose increase, but doubt this is causing current encephalopathy. Superimposed on mild cognitive impairment. Status: Acute (2) Essential hypertension: Unable to take oral medications reliably, including multifocal add IV metoprolol for now. Continue to monitor and optimize blood pressure control. Status: Acute (3) MCI (mild cognitive impairment): Status: Acute (4) Obesity (BMI 30-39.9): Status: Acute (5) CVA (cerebral vascular accident): Status: Acute (6) Hypothyroidism: Would benefit from mild increasing levothyroxine dose. Status: Chronic (7) Type 2 diabetes mellitus, with long-term current use of insulin: Uncontrolled diabetes. A1c 11.6. Unfortunately she has not adherent well with her insulin therapy, and caregiver tries to make sure she takes it as well as she can, but unless she has constant supervision not likely to be taking her insulin regularly. Sliding scale insulin. Low-dose Lantus. Discussed with her rehabilitation supervisor as well who is very concerned regarding her ability to understand instructions and follow through with therapeutic regimens. Risk for missed dosing and inadvertent self-harm. Status: Chronic (8) COPD (chronic obstructive pulmonary disease): Status: Acute Additional A&P Information Alkaline phosphatase elevation: Unremarkable right upper quadrant ultrasound. Attestations Medical Necessity Statement*: Continue admission for assessment management of acute encephalopathy, CVA. Coding Level of Care Code Acute Commercial Loan Manager for Chg Fwd Diagnoses Acute encephalopathy G93.40 Essential hypertension I10 MCI (mild cognitive impairment) G31.84 Obesity (BMI 30-39.9) E66.9 CVA (cerebral vascular accident) I63.9 Hypothyroidism E03.9 Type 2 diabetes mellitus, with long-term current use of insulin E11.9; Z79.4 COPD (chronic obstructive pulmonary disease) J44.9
[2021-05-02] MEDS: enoxaparin 40 mg/0.4 mL Syringe SUBCUT (21:32)
[2021-05-02] MEDS: insulin glargine 100 units/1 mL 20 UNIT SUBCUT (21:33)
[2021-05-02 23:10] LABS: Glucose Point of Care 148 mg/dL (70-110)
[2021-05-03] VITALS (7 sets, daily range): BP systolic 160–210; BP diastolic 78–104; PULSE 56–75; RESP 16–28; TEMP 36.6–36.9; O2SAT 95–99
[2021-05-03 03:09] LABS: Basophils % 0.3 %; Hematocrit 43.2 % (37.0-47.0); Hemoglobin 14.7 g/dL (11.5-15.3); Lymphocytes # 2.1 10^3/uL (0.8-4.8); Lymphocytes % 22.3 %; Mean Corpuscular Hemoglobin 29.6 pg (28.0-34.0); Mean Corpuscular Volume 86.9 fl (81-99); Mean Platelet Volume 11.1 fL (7.4-10.4); Monocytes # 0.6 10^3/uL (0.2-0.9); Monocytes % 5.7 %; Neutrophils # 6.84 10^3/uL (1.8-7.7); Neutrophils % 71.3 %; Nucleated Red Blood Cells % 0 %; Platelet Count 200 10^3/cmm (130-400); Red Blood Count 4.97 10^6/uL (4.1-5.3); Red Cell Distribution Width 12.5 % (12.1-15.1); White Blood Count 9.6 10^3/uL (4.0-10.0)
[2021-05-03 03:36] LABS: Alanine Aminotransferase 14 U/L (0-33); Albumin Level 3.5 g/dL (3.5-5.2); Alkaline Phosphatase 133 IU/L (35-105); Anion Gap 18.2 (5-19); Aspartate Amino Transferase 13 U/L (0-32); Blood Urea Nitrogen 16 mg/dL (8-23); Calcium 8.3 mg/dL (8.5-10.5); Carbon Dioxide 19 mmol/L (22-29); Chloride 107 mmol/L (98-107); Globulin 2.3 g/dL (1.3-4.6); Glomerular Filtration Rate 83.2 mL/min (90-130); Glucose 117 mg/dL (65-115); Osmolality Calculated 294 mOsm/kg (285-295); Potassium 3.2 mmol/L (3.5-5.1); Sodium 141 mmol/L (136-145); Total Bilirubin 0.5 mg/dL (0.15-1.2); Total Protein 5.8 g/dL (6.6-8.7)
[2021-05-03] MEDS: metoprolol tartrate 1 mg/1 mL SDV 5 mL 5 MG IVP ×4 (03:39→21:51)
[2021-05-03 08:15] LABS: Glucose Point of Care 93 mg/dL (70-110)
[2021-05-03] MEDS: lidocaine 1% 5 ML in potassium chloride premix 100 ML 25 ML IV (09:35)
--- NOTE | 2021-05-03 10:00 | MR_ITS ---
WS: [id number] MRI BRAIN WITH AND WITHOUT CONTRAST HISTORY: encephalopathy, suspected cva COMPARISON: 08/20/2017, 11/15/2013 TECHNIQUE: Multiplanar imaging performed through the brain with MultiHance 20 ml's IV. Diffusion-weighted abnormality with corresponding low signal on ADC mapping in the LEFT harrison radiat a. This is most consistent with an acute infarct. On the postcontrast images there is a very tiny isaac unt of adjacent serpiginous and nodular enhancement. Also on the postcontrast imaging there is a rim- enhancing lesion in the RIGHT harrison radiata with a focal linear extension laterally. On the recent C T there is an area of decreased attenuation. The rim-enhancing nodule measures 7 mm. RIGHT harrison rad iata lesion is not positive on the diffusion weighted imaging. On the FLAIR sequences there is moderate increased signal intensity in the harrison radiata. There are additional scattered T2 and FLAIR lesions which are nonenhancing and is subcortical white matter. The se white matter lesions were present on the prior study but have increased in size and number. No hem orrhage. Clivus and pituitary gland are normal. Visualized posterior fossa and brainstem are also normal. 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 Dural venous sinuses are negative. Paranasal sinuses: Well aerated with no significant disease. Mastoid air cells: Bilateral mastoid air cell disease, LEFT greater than RIGHT. Calvarium and scalp: Normal. 0 MR/MR head wo/w con [id number] IMPRESSION: 1. Acute LEFT harrison radiata infarct without hemorrhage. 2. There is a nodular enhancing lesion in the RIGHT harrison radiata which may b e from a subacute infarct. No diffusion-weighted abnormality in this time. Diff erential includes metastatic site, active demyelination and infection. There is also serpiginous enhancement within the LEFT harrison radiata lesion. Recommend follow-up MRI brain with contrast in 4-6 weeks to evaluate for any interval georges nge. Infectious and neoplastic changes need to be excluded. 3. Progression of nonenhancing T2 and FLAIR signal hyperintensities which may be from chronic microvascular ischemic disease, hypertension or diabetes.
--- NOTE | 2021-05-03 10:34 | PC.SOCIAL ---
IMM Update Pg. 2 of IMM updated. Initialed, dated, and timed, copy provided at bedside.
[2021-05-03] MEDS: sodium chloride 0.9% 1,000 ML 50 ML IV (11:41)
[2021-05-03] MEDS: aspirin 300 mg Supp PR (11:44)
[2021-05-03] MEDS: hyDRALAzine 20 mg/mL INJ 1 mL 5 MG IVP ×2 (11:52→18:20)
[2021-05-03 12:08] LABS: Glucose Point of Care 78 mg/dL (70-110)
[2021-05-03] MEDS: dextrose 5% 1,000 ML 50 ML IV (12:30)
[2021-05-03] MEDS: dextrose 5 % 500 ML 100 ML IV (12:34)
--- NOTE | 2021-05-03 12:43 | PC.OT ---
OT tx attempted at 0935. Pt going to MRI. Therapist assisted with transfer to [facility]. Will attempt tx again at later time if possible.
--- NOTE | 2021-05-03 14:39 | P.PN_ITS ---
Subjective Subjective: Interval history: Returned from MRI,Not sure if perhaps still recovering from the trip, but somewhat less interactive today, following some commands, mouths her first name when asked, otherwise does not answer questions. Vitals/I&O/Wt Last Vital Signs Temp 98.4 F 05/03/21 06:26 Pulse 56 L 05/03/21 06:26 Resp 16 05/03/21 06:26 BP 160/78 05/03/21 06:26 Pulse Ox 99 05/03/21 06:26 05/02/21 05/03/21 05/03/21 22:59 06:59 14:59 Intake Total 0 / 1000 1000 / 2000 1000 / 1000 Output Total 1150 / 1150 350 / 1500 Balance -1150 / -150 650 / 500 1000 / 1000 Physical Exam Const: COMMON NORMALS: no acute distress ORIENTATION/CONSCIOUSNESS: Yes confused HENMT: COMMON NORMALS: oropharynx normal Neck/C-Spine: COMMON NORMALS: no JVD Resp: COMMON NORMALS: normal respiratory effort and clear to auscultation bilaterally AUSCULTATION: clear to auscultation bilaterally Cardio: COMMON NORMALS: no JVD, regular rhythm, S1 normal heart sound present, S2 normal heart sound present and No murmurs present (Cardio) RHYTHM: regular rhythm HEART SOUNDS: S1 normal heart sound present and S2 normal heart sound present GI: COMMON NORMALS: Normal to inspection, nondistended, normoactive bowel sounds present, Soft to palpation and non-tender PALPATION: Yes Soft to palpation Extremity: COMMON NORMALS: no joint enlargement and no pedal edema Neuro: SPEECH: expressive aphasia SENSORY EXAM: Yes Normal double simultaneous stimulation for sensation MOTOR EXAM: Other motor observations present (3/5, 2/5 RUE) OTHER: Visual duncan difficult to assess today Follows commands much more readily Skin: COMMON NORMALS: no rashes or lesions noted GENERAL SKIN EXAM: no rashes or lesions noted Urinary Catheter Management^: Doshi: Cath Placed During This Visit: yes Reason for Continuing Indwelling Catheter: Accurate Measurement of Urinary Output in Critically Ill Patients Urinary Catheter Date of Insertion: 05/01/21 Urinary Catheter Time of Insertion: 14:30 Data : 05/03/21 02:08 05/03/21 02:08 A&P Assessment and plan (1) Acute encephalopathy: Acute left coronary data infarct without hemorrhage noted on MRI. Nodule enhancing lesion in the right harrison radiata which may be from subacute infarct. Differential includes possible metastatic site, active demyelination and infection. There is also serpiginous enhancement within the left coronary data lesion. Recommended follow-up MRI brain with contrast in 4-6 weeks to evaluate for any interval change. Infectious and neoplastic changes need to be excluded. Progression of nonenhancing T2 and FLAIR signal hyperintensities which may be from chronic microvascular ischemic disease, hypertension or diabetes. She has been afebrile, with normal WBC count, after initially slightly elevated, not on any anti-infective agents, without meningeal signs, and infectious cause would be further less likely. We will request blood culture. In case of fever or symptoms of infection consider LP. Still has not done well with speech therapy, for now continue NPO. Place NGT, start tube feeds. For now continue aspirin, unless signs of infectious etiology, then hold for LP. Plavix has been on hold until resumes p.o. intake. Similarly resume statin once able to take oral intake or established enteral access. Continue ST. Continue PT, OT. Carotid duplex with bilateral ICA stenosis less than 50%. TTE with normal ejection fraction, grade 1 diastolic dysfunction, severe aortic valve stenosis, mean gradient 10.9, EMILY 0.93. Worsened aortic stenosis from June 2020. Ongoing discharge planning by case management. She has not been able to understand or follow complex instructions. Living alone posing a danger to herself. Will need placement, guardianship. TSH mildly elevated, free T4 mildly low, would benefit from with thyroxine dose increase, but doubt this is causing current encephalopathy. Superimposed on mild cognitive impairment. Status: Acute (2) Essential hypertension: Unable to take oral medications reliably, including multifocal add IV metoprolol for now. Continue to monitor and optimize blood pressure control. Status: Acute (3) MCI (mild cognitive impairment): Status: Acute (4) Obesity (BMI 30-39.9): Status: Acute (5) CVA (cerebral vascular accident): Status: Acute (6) Hypothyroidism: Hypothyroidism, consider mild increase in levothyroxine dose when resuming oral medications and follow-up of thyroid function. Status: Chronic (7) Type 2 diabetes mellitus, with long-term current use of insulin: Uncontrolled diabetes. A1c 11.6. Unfortunately she has not adherent well with her insulin therapy, and caregiver tries to make sure she takes it as well as she can, but unless she has constant supervision not likely to be taking her insulin regularly. Sliding scale insulin. Low-dose Lantus. Discussed with her travel guide as well who is very concerned regarding her ability to understand instructions and follow through with therapeutic regimens. Risk for missed dosing and inadvertent self-harm. Status: Chronic (8) COPD (chronic obstructive pulmonary disease): Status: Acute Additional A&P Information Alkaline phosphatase elevation: Unremarkable right upper quadrant ultrasound. Hypokalemia: Replace Attestations Medical Necessity Statement*: Continue admission for assessment management of acute CVA, acute encephalopathy. Disposition planning. Coding Level of Care Code Acute Director Of Fundraising for Josemanuel Jazmynd Diagnoses Acute encephalopathy G93.40 Essential hypertension I10 MCI (mild cognitive impairment) G31.84 Obesity (BMI 30-39.9) E66.9 CVA (cerebral vascular accident) I63.9 Hypothyroidism E03.9 Type 2 diabetes mellitus, with long-term current use of insulin E11.9; Z79.4 COPD (chronic obstructive pulmonary disease) J44.9
[2021-05-03 18:12] LABS: Glucose Point of Care 128 mg/dL (70-110)
--- NOTE | 2021-05-03 20:48 | PC.NURSE ---
discussed nasogastric tube placement for tubefeeding,and pt began sobbing and crying. dr juarez notified.will attempt again tomorrow.
[2021-05-03] MEDS: enoxaparin 40 mg/0.4 mL Syringe SUBCUT (21:24)
[2021-05-03 22:08] LABS: Glucose Point of Care 123 mg/dL (70-110)
[2021-05-03] MEDS: insulin glargine 100 units/1 mL 10 UNIT SUBCUT (22:32)
--- NOTE | 2021-05-03 22:41 | PC.NUTR ---
TF consult received. When medically appropriate, recommend consideration of Glucerna 1.2 starting at 10 mls/hr and advancing 10mls Q8H as tolerated to a goal rate of 25 mls/hr, with FW flushes 50 mls Q4H or per MD discretion. Details in RD assessment.
[2021-05-04] VITALS (9 sets, daily range): BP systolic 139–189; BP diastolic 77–137; PULSE 54–81; RESP 17–22; TEMP 36.3–36.4; O2SAT 96–99
[2021-05-04] MEDS: metoprolol tartrate 1 mg/1 mL SDV 5 mL 5 MG IVP ×4 (05:42→22:22)
[2021-05-04 05:56] LABS: Basophils % 0.4 %; Hematocrit 47.9 % (37.0-47.0); Hemoglobin 16.2 g/dL (11.5-15.3); Lymphocytes # 2.2 10^3/uL (0.8-4.8); Lymphocytes % 27.3 %; Mean Corpuscular HGB Conc 33.8 g/dL (30.0-36.0); Mean Corpuscular Hemoglobin 29.5 pg (28.0-34.0); Mean Corpuscular Volume 87.2 fl (81-99); Mean Platelet Volume 11.1 fL (7.4-10.4); Monocytes # 0.6 10^3/uL (0.2-0.9); Monocytes % 6.8 %; Neutrophils # 5.31 10^3/uL (1.8-7.7); Neutrophils % 65.3 %; Nucleated Red Blood Cells % 0 %; Platelet Count 212 10^3/cmm (130-400); Red Blood Count 5.49 10^6/uL (4.1-5.3); Red Cell Distribution Width 12.6 % (12.1-15.1); White Blood Count 8.1 10^3/uL (4.0-10.0)
[2021-05-04 06:55] LABS: Alanine Aminotransferase 16 U/L (0-33); Albumin Level 3.8 g/dL (3.5-5.2); Alkaline Phosphatase 140 IU/L (35-105); Anion Gap 21.1 (5-19); Aspartate Amino Transferase 17 U/L (0-32); Blood Urea Nitrogen 16 mg/dL (8-23); Calcium 9.7 mg/dL (8.5-10.5); Carbon Dioxide 20 mmol/L (22-29); Chloride 103 mmol/L (98-107); Globulin 2.6 g/dL (1.3-4.6); Glomerular Filtration Rate 71.3 mL/min (90-130); Glucose 60 mg/dL (65-115); Osmolality Calculated 291 mOsm/kg (285-295); Potassium 3.1 mmol/L (3.5-5.1); Sodium 141 mmol/L (136-145); Total Bilirubin 0.5 mg/dL (0.15-1.2); Total Protein 6.4 g/dL (6.6-8.7)
[2021-05-04 08:05] LABS: Glucose Point of Care 72 mg/dL (70-110)
--- NOTE | 2021-05-04 10:00 | PC.NURSE ---
pt refused NGT tube Dr at bedside and pt does not want ngt tube when explained the reason. Dr Gomez ordered TPN Peripheral IV. Awaiting for pharmacy to bring it.
--- NOTE | 2021-05-04 11:42 | PC.NURSE ---
blood glucose 110
[2021-05-04 11:45] LABS: Glucose Point of Care 110 mg/dL (70-110)
[2021-05-04] MEDS: hyDRALAzine 20 mg/mL INJ 1 mL 5 MG IVP ×3 (11:57→20:28)
[2021-05-04] MEDS: aspirin 300 mg Supp PR (14:23)
--- NOTE | 2021-05-04 16:08 | PC.NURSE ---
blood glucose 111
[2021-05-04 16:12] LABS: Glucose Point of Care 111 mg/dL (70-110)
--- NOTE | 2021-05-04 19:54 | PC.NURSE ---
Shift Note Frequent safety and comfort rounds continue. Orders and/or nursing care completed as indicated. Patient monitored for response to intervention and treatment(s). Education provided includes TPN. Patient and/or sales representative cash registers needs reinforcement. Will continue to monitor.
[2021-05-04 20:20] LABS: Glucose Point of Care 104 mg/dL (70-110)
[2021-05-04] MEDS: enoxaparin 40 mg/0.4 mL Syringe SUBCUT (20:26)
[2021-05-04] MEDS: insulin glargine 100 units/1 mL 10 UNIT SUBCUT (21:00)
--- NOTE | 2021-05-04 21:17 | PM.PN ---
Subjective Subjective: Interval history: Sitting up in chair. Not in pain or discomfort. Nodding answers to simple questions. Vitals/I&O/Wt Last Vital Signs Temp 97.4 F L 05/04/21 19:02 Pulse 61 05/04/21 19:02 Resp 22 H 05/04/21 19:02 BP 156/89 05/04/21 19:02 Pulse Ox 99 05/04/21 19:02 05/04/21 05/04/21 05/04/21 06:59 14:59 22:59 Intake Total 0 / 1605 Output Total 275 / 825 530 / 530 Balance -275 / 780 -530 / -530 Physical Exam Const: COMMON NORMALS: no acute distress ORIENTATION/CONSCIOUSNESS: Yes confused HENMT: COMMON NORMALS: oropharynx normal Neck/C-Spine: COMMON NORMALS: no JVD Resp: COMMON NORMALS: normal respiratory effort and clear to auscultation bilaterally AUSCULTATION: clear to auscultation bilaterally Cardio: COMMON NORMALS: no JVD, regular rhythm, S1 normal heart sound present, S2 normal heart sound present and No murmurs present (Cardio) RHYTHM: regular rhythm HEART SOUNDS: S1 normal heart sound present and S2 normal heart sound present GI: COMMON NORMALS: Normal to inspection, nondistended, normoactive bowel sounds present, Soft to palpation and non-tender PALPATION: Yes Soft to palpation Extremity: COMMON NORMALS: no joint enlargement and no pedal edema Neuro: SPEECH: expressive aphasia SENSORY EXAM: Yes Normal double simultaneous stimulation for sensation MOTOR EXAM: Other motor observations present (3/5, 2/5 RUE) OTHER: Visual duncan difficult to assess today Follows commands much more readily Skin: COMMON NORMALS: no rashes or lesions noted GENERAL SKIN EXAM: no rashes or lesions noted Urinary Catheter Management^: Doshi: Cath Placed During This Visit: yes Reason for Continuing Indwelling Catheter: Acute Urinary Retention or Obstruction Urinary Catheter Date of Insertion: 05/01/21 Urinary Catheter Time of Insertion: 14:30 Data : 05/04/21 05:00 05/04/21 05:00 Micro: Microbiology 05/03/21 15:56 Blood Culture - Preliminary Blood NEGATIVE TO DATE 05/03/21 14:54 Blood Culture - Preliminary Blood NEGATIVE TO DATE A&P Assessment and plan (1) Acute encephalopathy: Would not allow for placement of NGT. Start PPN. Continue to work with speech therapy regarding dysphagia. Continue aspirin MA for now. Continue statin. PT, OT. Placement arrangements. Acute left coronary data infarct without hemorrhage noted on MRI. Nodule enhancing lesion in the right harrison radiata which may be from subacute infarct. Differential includes possible metastatic site, active demyelination and infection. There is also serpiginous enhancement within the left coronary data lesion. Recommended follow-up MRI brain with contrast in 4-6 weeks to evaluate for any interval change. Infectious and neoplastic changes need to be excluded. Progression of nonenhancing T2 and FLAIR signal hyperintensities which may be from chronic microvascular ischemic disease, hypertension or diabetes. She has been afebrile, with normal WBC count, after initially slightly elevated, not on any anti-infective agents, without meningeal signs, and infectious cause would be further less likely. We will request blood culture. In case of fever or symptoms of infection consider LP. Carotid duplex with bilateral ICA stenosis less than 50%. TTE with normal ejection fraction, grade 1 diastolic dysfunction, severe aortic valve stenosis, mean gradient 10.9, EMILY 0.93. Worsened aortic stenosis from June 2020. Ongoing discharge planning by case management. She has not been able to understand or follow complex instructions. Living alone posing a danger to herself. Will need placement, guardianship. TSH mildly elevated, free T4 mildly low, would benefit from with thyroxine dose increase, but doubt this is causing current encephalopathy. Superimposed on mild cognitive impairment. Status: Acute (2) Essential hypertension: We made hydralazine scheduled, and continue as needed IV. Unable to take oral medications at this time. Unable to take oral medications reliably, including multifocal add IV metoprolol for now. Continue to monitor and optimize blood pressure control. Status: Acute (3) MCI (mild cognitive impairment): Status: Acute (4) Obesity (BMI 30-39.9): Status: Acute (5) CVA (cerebral vascular accident): Status: Acute (6) Hypothyroidism: Hypothyroidism, consider mild increase in levothyroxine dose when resuming oral medications and follow-up of thyroid function. Status: Chronic (7) Type 2 diabetes mellitus, with long-term current use of insulin: Hold insulin for now given soft blood glucose. Started on PPN. Continue to monitor glucose. Resume insulin once glucose increasing again. Uncontrolled diabetes. A1c 11.6. Unfortunately she has not adherent well with her insulin therapy, and caregiver tries to make sure she takes it as well as she can, but unless she has constant supervision not likely to be taking her insulin regularly. Sliding scale insulin. Low-dose Lantus. Discussed with her automotive starter repairer as well who is very concerned regarding her ability to understand instructions and follow through with therapeutic regimens. Risk for missed dosing and inadvertent self-harm. Status: Chronic (8) COPD (chronic obstructive pulmonary disease): Status: Acute Additional A&P Information Alkaline phosphatase elevation: Unremarkable right upper quadrant ultrasound. Hypokalemia: Replace Attestations Medical Necessity Statement*: Continue admission for assessment and management following CVA, encephalopathy, severe dysphagia, inability to take oral intake or medications, disposition planning and arrangements. 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
[2021-05-04] MEDS: lidocaine 1% 5 ML in potassium chloride premix 100 ML 50 ML IV (22:26)
[2021-05-05] VITALS (9 sets, daily range): BP systolic 138–183; BP diastolic 61–128; PULSE 56–82; RESP 12–30; TEMP 36.6–36.8; O2SAT 96–100
[2021-05-05] MEDS: metoprolol tartrate 1 mg/1 mL SDV 5 mL 5 MG IVP ×4 (05:14→22:45)
[2021-05-05 06:28] LABS: Basophils % 0.4 %; Hematocrit 45.2 % (37.0-47.0); Hemoglobin 15.1 g/dL (11.5-15.3); Lymphocytes # 1.5 10^3/uL (0.8-4.8); Lymphocytes % 17.7 %; Mean Corpuscular HGB Conc 33.4 g/dL (30.0-36.0); Mean Corpuscular Hemoglobin 29.8 pg (28.0-34.0); Mean Corpuscular Volume 89.2 fl (81-99); Mean Platelet Volume 10.4 fL (7.4-10.4); Monocytes # 0.5 10^3/uL (0.2-0.9); Monocytes % 6.2 %; Neutrophils # 6.35 10^3/uL (1.8-7.7); Neutrophils % 75.3 %; Nucleated Red Blood Cells % 0 %; Platelet Count 210 10^3/cmm (130-400); Red Blood Count 5.07 10^6/uL (4.1-5.3); Red Cell Distribution Width 12.8 % (12.1-15.1); White Blood Count 8.4 10^3/uL (4.0-10.0)
[2021-05-05 06:41] LABS: Glucose Point of Care 142 mg/dL (70-110)
[2021-05-05 06:57] LABS: Alanine Aminotransferase 13 U/L (0-33); Albumin Level 3.6 g/dL (3.5-5.2); Alkaline Phosphatase 135 IU/L (35-105); Anion Gap 18.7 (5-19); Aspartate Amino Transferase 13 U/L (0-32); Blood Urea Nitrogen 17 mg/dL (8-23); Calcium 8.5 mg/dL (8.5-10.5); Carbon Dioxide 20 mmol/L (22-29); Chloride 105 mmol/L (98-107); Globulin 1.9 g/dL (1.3-4.6); Glomerular Filtration Rate 71.3 mL/min (90-130); Glucose 149 mg/dL (65-115); Osmolality Calculated 294 mOsm/kg (285-295); Potassium 3.7 mmol/L (3.5-5.1); Sodium 140 mmol/L (136-145); Total Bilirubin 0.5 mg/dL (0.15-1.2); Total Protein 5.5 g/dL (6.6-8.7)
[2021-05-05] MEDS: insulin lispro 100 unit/1 mL SUBCUT ×2 (08:53→19:06)
[2021-05-05] MEDS: hyDRALAzine 20 mg/mL INJ 1 mL 5 MG IVP ×3 (10:34→20:29)
--- NOTE | 2021-05-05 11:17 | PC.NURSE ---
blood glucose 124
[2021-05-05 11:31] LABS: Glucose Point of Care 124 mg/dL (70-110)
--- NOTE | 2021-05-05 12:00 | PC.NURSE ---
Pt started to have a pureed diet per ST Per Dr to keep her TPN as instructed. pt noted to have drooling, occassional coughing spells during feeding herself. she swallowed pureed and drink thickener fluid.
--- NOTE | 2021-05-05 12:38 | PM.PN ---
Subjective Subjective: Interval history: Does not interact readily, intermittently answers questions by nodding, sometimes tries to mouth words. Makes eye contact. Follows some commands. Sitting up in chair. Appears to deny pain or discomfort. Does not appear in discomfort. Vitals/I&O/Wt Last Vital Signs Temp 98.3 F 05/05/21 07:40 Pulse 76 05/05/21 11:17 Resp 13 05/05/21 07:40 BP 151/87 05/05/21 11:17 Pulse Ox 97 05/05/21 11:17 05/04/21 05/05/21 05/05/21 22:59 06:59 14:59 Intake Total 105 / 105 Output Total 530 / 530 450 / 980 50 / 50 Balance -530 / -530 -345 / -875 -50 / -50 Physical Exam Const: COMMON NORMALS: no acute distress ORIENTATION/CONSCIOUSNESS: Yes confused HENMT: COMMON NORMALS: oropharynx normal Neck/C-Spine: COMMON NORMALS: no meningeal signs and no JVD Resp: COMMON NORMALS: normal respiratory effort and clear to auscultation bilaterally AUSCULTATION: clear to auscultation bilaterally Cardio: COMMON NORMALS: no JVD, regular rhythm, S1 normal heart sound present, S2 normal heart sound present and No murmurs present (Cardio) RHYTHM: regular rhythm HEART SOUNDS: S1 normal heart sound present and S2 normal heart sound present GI: COMMON NORMALS: Normal to inspection, nondistended, normoactive bowel sounds present, Soft to palpation and non-tender PALPATION: Yes Soft to palpation Extremity: COMMON NORMALS: no joint enlargement and no pedal edema Neuro: MENINGEAL SIGNS: Yes no meningeal signs SPEECH: expressive aphasia SENSORY EXAM: Yes Normal double simultaneous stimulation for sensation MOTOR EXAM: Other motor observations present (4/5, 3/5 RUE. R sided facial droop) OTHER: Visual duncan difficult to assess but appear close to normal Skin: COMMON NORMALS: no rashes or lesions noted GENERAL SKIN EXAM: no rashes or lesions noted Urinary Catheter Management^: Doshi: Cath Placed During This Visit: yes Reason for Continuing Indwelling Catheter: Acute Urinary Retention or Obstruction Urinary Catheter Date of Insertion: 05/01/21 Urinary Catheter Time of Insertion: 14:30 Data : 05/05/21 06:05 05/05/21 06:05 Micro: Microbiology 05/03/21 15:56 Blood Culture - Preliminary Blood NEGATIVE TO DATE 05/03/21 14:54 Blood Culture - Preliminary Blood NEGATIVE TO DATE A&P Assessment and plan (1) Acute encephalopathy: Started PPN as she would not allow for placement of NGT. Today assessed by speech therapy with noted some tolerance of oral intake and which she is cautiously started. Monitor oral intake. In case not tolerating, may still need to consider feeding tube. Continue to work with speech therapy regarding dysphagia. Continue aspirin [place] for now. Continue statin. PT, OT. Placement arrangements. Acute left coronary data infarct without hemorrhage noted on MRI. Nodule enhancing lesion in the right harrison radiata which may be from subacute infarct. Differential includes possible metastatic site, active demyelination and infection. There is also serpiginous enhancement within the left coronary data lesion. Recommended follow-up MRI brain with contrast in 4-6 weeks to evaluate for any interval change. Infectious and neoplastic changes need to be excluded. Progression of nonenhancing T2 and FLAIR signal hyperintensities which may be from chronic microvascular ischemic disease, hypertension or diabetes. She has been afebrile, with normal WBC count, after initially slightly elevated, not on any anti-infective agents, without meningeal signs, and infectious cause would be further less likely. So far preliminary blood culture negative. In case of fever or symptoms of infection consider LP. Carotid duplex with bilateral ICA stenosis less than 50%. TTE with normal ejection fraction, grade 1 diastolic dysfunction, severe aortic valve stenosis, mean gradient 10.9, EMILY 0.93. Worsened aortic stenosis from June 2020. Ongoing discharge planning by case management. She has not been able to understand or follow complex instructions. Living alone posing a danger to herself. Will need placement, pending guardianship via office of Mr. Levi Saez. TSH mildly elevated, free T4 mildly low, would benefit from with thyroxine dose increase, but doubt this is causing current encephalopathy. Superimposed on past mild cognitive impairment. Status: Acute (2) Essential hypertension: We made hydralazine scheduled, and continue as needed IV. Unable to take oral medications at this time. Unable to take oral medications reliably, including multifocal add IV metoprolol for now. Continue to monitor and optimize blood pressure control. Status: Acute (3) MCI (mild cognitive impairment): Status: Acute (4) Obesity (BMI 30-39.9): Status: Acute (5) CVA (cerebral vascular accident): Status: Acute (6) Hypothyroidism: Hypothyroidism, consider mild increase in levothyroxine dose when resuming oral medications and follow-up of thyroid function. Status: Chronic (7) Type 2 diabetes mellitus, with long-term current use of insulin: Held insulin for now given soft blood glucose. Started on PPN. Continue to monitor glucose. Resume insulin once glucose increasing again. Uncontrolled diabetes. A1c 11.6. Unfortunately she has not adherent well with her insulin therapy, and caregiver tries to make sure she takes it as well as she can, but unless she has constant supervision not likely to be taking her insulin regularly. Sliding scale insulin. Low-dose Lantus. Discussed with her temporary data entry clerk as well who is very concerned regarding her ability to understand instructions and follow through with therapeutic regimens. Risk for missed dosing and inadvertent self-harm. Status: Chronic (8) COPD (chronic obstructive pulmonary disease): Status: Acute Additional A&P Information Alkaline phosphatase elevation: Unremarkable right upper quadrant ultrasound. Hypokalemia: Replaced Attestations Medical Necessity Statement*: Continue admission for assessment management of acute CVA with significant oropharyngeal dysphagia intolerant of oral intake, now trial of p.o. diet, arrangements for guardianship, disposition planning. 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
[2021-05-05 16:10] LABS: Glucose Point of Care 261 mg/dL (70-110)
--- NOTE | 2021-05-05 17:14 | PC.NURSE ---
Pt had advance diet fron npo to pureed diet per ST lisa Noticed occasional coughing spells. pt feed herself and swallowed pureed food well.
[2021-05-05] MEDS: aspirin 300 mg Supp PR (18:18)
[2021-05-05] MEDS: enoxaparin 40 mg/0.4 mL Syringe SUBCUT (20:28)
[2021-05-05 20:37] LABS: Glucose Point of Care 187 mg/dL (70-110)
[2021-05-06] VITALS (10 sets, daily range): BP systolic 138–182; BP diastolic 65–117; PULSE 59–83; RESP 13–28; TEMP 36.1–36.8; O2SAT 95–97
[2021-05-06] MEDS: metoprolol tartrate 1 mg/1 mL SDV 5 mL 5 MG IVP (03:17)
[2021-05-06 04:55] LABS: Basophils % 0.4 %; Eosinophils % 0.1 %; Hemoglobin 15.4 g/dL (11.5-15.3); Lymphocytes # 2.1 10^3/uL (0.8-4.8); Lymphocytes % 22.5 %; Mean Corpuscular HGB Conc 33.5 g/dL (30.0-36.0); Mean Corpuscular Hemoglobin 30.1 pg (28.0-34.0); Mean Corpuscular Volume 89.8 fl (81-99); Mean Platelet Volume 11.2 fL (7.4-10.4); Monocytes # 0.6 10^3/uL (0.2-0.9); Monocytes % 6.2 %; Neutrophils # 6.63 10^3/uL (1.8-7.7); Neutrophils % 70.4 %; Nucleated Red Blood Cells % 0 %; Platelet Count 213 10^3/cmm (130-400); Red Blood Count 5.12 10^6/uL (4.1-5.3); Red Cell Distribution Width 12.9 % (12.1-15.1); White Blood Count 9.4 10^3/uL (4.0-10.0)
[2021-05-06 05:09] LABS: Alanine Aminotransferase 15 U/L (0-33); Albumin Level 3.8 g/dL (3.5-5.2); Alkaline Phosphatase 145 IU/L (35-105); Anion Gap 20.7 (5-19); Aspartate Amino Transferase 13 U/L (0-32); Blood Urea Nitrogen 28 mg/dL (8-23); Calcium 9.9 mg/dL (8.5-10.5); Carbon Dioxide 20 mmol/L (22-29); Chloride 103 mmol/L (98-107); Globulin 2.5 g/dL (1.3-4.6); Glomerular Filtration Rate 62.3 mL/min (90-130); Glucose 216 mg/dL (65-115); Osmolality Calculated 302 mOsm/kg (285-295); Potassium 3.7 mmol/L (3.5-5.1); Sodium 140 mmol/L (136-145); Total Bilirubin 0.6 mg/dL (0.15-1.2); Total Protein 6.3 g/dL (6.6-8.7)
[2021-05-06 06:32] LABS: Glucose Point of Care 267 mg/dL (70-110)
[2021-05-06] MEDS: levothyroxine 137 mcg Tablet PO (08:49)
[2021-05-06] MEDS: lisinopril 20 mg Tablet 40 MG PO (08:49)
[2021-05-06] MEDS: clopidogrel 75 mg Tablet PO (08:50)
[2021-05-06] MEDS: atorvastatin 40 mg Tablet 80 MG PO (08:50)
[2021-05-06] MEDS: insulin lispro 100 unit/1 mL SUBCUT ×3 (08:50→17:30)
--- NOTE | 2021-05-06 09:00 | PC.NURSE ---
Dr Mcdonough at bedside instruction to stop PPN
--- NOTE | 2021-05-06 09:22 | PC.CHAP ---
Pastoral Care Encounter/Spiritual Assessment Type of Contact [] Declined process mechanic visit [] Patient/Family/Request visit [] Outpatient visit [] Follow-up visit [] Physician referral [] Code/Alert [x] Routine visit [] Staff referral [] Actively dying [] Patient sleeping [] Family support [] [] Out of room [] Palliative care [] [] Receiving care in room [] Pre-surgical visit [] Trauma [] Long length of stay [] ICU visit [x] Other: setter Relational/Emotional Strength [] Patient feels connected with others/family/visitors/staff [] Distress [] Loneliness/isolation [] Abandonment Spirituality of Patient [] Person of Verónica [] Attends Gnosticist of their Verónica [] Believes in Prayer [] Reads Bible or Taoist materials [] There are Spiritual issues to be addressed Credit Collections Clerk Interventions [x] Prayer [x] Active listening [x] Non-anxious presence [x] Spiritual/emotional support [] Crisis/trauma care [] Spiritual counseling [] Bereavement support [] Provided bereavement packet [] Provided Bible/devotional materials [] Provided toy/stuffed animal, coloring book to patient or family member [] Provided Communion [] Anointing/[place] [] Salvation [x] Completed spiritual assessment [] Other: Impact on Illness or Injury [] Angry [] Fearful [] Anxious [] Often cries [] Exhaustion [] Unable to work [] Unable to attend holiness [] Unable to walk/stand [] Unable to read [] Unable to drive [] Unable to eat/drink [] Unable to sleep [] Unable to be with family [] Patient intubated [] Other: Summary yes and no answers--- setting on side of bed having breakfast Time spent with patient 5 min
[2021-05-06] MEDS: isosorbide mononitrate ER 30 mg Tablet PO (10:21)
[2021-05-06] MEDS: aspirin 81 mg Chew Tablet PO (10:21)
--- NOTE | 2021-05-06 11:23 | PC.NURSE ---
Spoke with Dr. Mcdonough about patient getting IV metoprolol guevara. instructions to stop IV and resume home dose Metoprolol 25mg PO BID
[2021-05-06 11:35] LABS: Glucose Point of Care 202 mg/dL (70-110)
[2021-05-06] MEDS: metoprolol tartrate 25 mg Tablet PO ×2 (12:57→17:30)
[2021-05-06 16:22] LABS: Glucose Point of Care 214 mg/dL (70-110)
--- NOTE | 2021-05-06 18:16 | PM.PN ---
Subjective Subjective: Interval history: Hospital course, labs appreciated. Examination sitting at bedside having her breakfast. Able to have her breakfast as per the nurse. No coughing events. Patient is comfortable, pleasant. Able to follow simple commands though is aphasic. Denies any discomfort or pain. Vitals/I&O/Wt Last Vital Signs Temp 98.3 F 05/06/21 18:08 Pulse 70 05/06/21 16:00 Resp 24 H 05/06/21 16:00 BP 164/75 05/06/21 16:00 Pulse Ox 97 05/06/21 04:00 05/06/21 05/06/21 05/06/21 06:59 14:59 22:59 Intake Total 511.5 / 511.5 120 / 631.5 Balance 511.5 / 511.5 120 / 631.5 Physical Exam Narrative: EXAM NARRATIVE: Alert to Self Const: COMMON NORMALS: no acute distress ORIENTATION/CONSCIOUSNESS: Yes confused HENMT: COMMON NORMALS: normocephalic, atraumatic and oropharynx normal HEAD & SCALP: normocephalic and atraumatic Neck/C-Spine: COMMON NORMALS: no meningeal signs and no JVD Chest: CHEST: Yes Symmetrical chest wall rise Resp: COMMON NORMALS: normal respiratory effort and clear to auscultation bilaterally AUSCULTATION: clear to auscultation bilaterally Cardio: COMMON NORMALS: no JVD, regular rate, regular rhythm, S1 normal heart sound present, S2 normal heart sound present, No murmurs present (Cardio), No rub (Cardio) and Peripheral pulses 2+ throughout RATE: regular rate RHYTHM: regular rhythm HEART SOUNDS: S1 normal heart sound present and S2 normal heart sound present PERIPHERAL PULSES: Peripheral pulses 2+ throughout OTHER: ESM In aortic Area GI: COMMON NORMALS: Normal to inspection, nondistended, normoactive bowel sounds present, Soft to palpation, non-tender, No hepatosplenomegaly present and no masses AUSCULTATION: Yes normoactive bowel sounds PALPATION: Yes Soft to palpation and Yes No hepatosplenomegaly present RECTAL EXAM: deferred Extremity: COMMON NORMALS: no joint enlargement, no clubbing, cyanosis or edema and no pedal edema Neuro: MENINGEAL SIGNS: Yes no meningeal signs SPEECH: expressive aphasia SENSORY EXAM: Yes Normal double simultaneous stimulation for sensation MOTOR EXAM: Other motor observations present (4/5, 3/5 RUE. R sided facial droop) OTHER: Visual duncan difficult to assess but appear close to normal Skin: COMMON NORMALS: no rashes or lesions noted GENERAL SKIN EXAM: no rashes or lesions noted Urinary Catheter Management^: Doshi: Cath Placed During This Visit: yes Reason for Continuing Indwelling Catheter: Accurate Measurement of Urinary Output in Critically Ill Patients Urinary Catheter Date of Insertion: 05/01/21 Urinary Catheter Time of Insertion: 14:30 Data : 05/06/21 03:50 05/06/21 03:50 A&P Assessment and plan (1) Acute encephalopathy: Started PPN as she would not allow for placement of NGT. Today assessed by speech therapy with noted some tolerance of oral intake and which she is cautiously started. Monitor oral intake. In case not tolerating, may still need to consider feeding tube. Continue to work with speech therapy regarding dysphagia. Continue aspirin [place] for now. Continue statin. PT, OT. Placement arrangements. Acute left coronary data infarct without hemorrhage noted on MRI. Nodule enhancing lesion in the right harrison radiata which may be from subacute infarct. Differential includes possible metastatic site, active demyelination and infection. There is also serpiginous enhancement within the left coronary data lesion. Recommended follow-up MRI brain with contrast in 4-6 weeks to evaluate for any interval change. Infectious and neoplastic changes need to be excluded. Progression of nonenhancing T2 and FLAIR signal hyperintensities which may be from chronic microvascular ischemic disease, hypertension or diabetes. She has been afebrile, with normal WBC count, after initially slightly elevated, not on any anti-infective agents, without meningeal signs, and infectious cause would be further less likely. So far preliminary blood culture negative. In case of fever or symptoms of infection consider LP. Carotid duplex with bilateral ICA stenosis less than 50%. TTE with normal ejection fraction, grade 1 diastolic dysfunction, severe aortic valve stenosis, mean gradient 10.9, EMILY 0.93. Worsened aortic stenosis from June 2020. Ongoing discharge planning by case management. She has not been able to understand or follow complex instructions. Living alone posing a danger to herself. Will need placement, pending guardianship via office of Morris Levi Saez. TSH mildly elevated, free T4 mildly low, would benefit from with thyroxine dose increase, but doubt this is causing current encephalopathy. Superimposed on past mild cognitive impairment. Status: Acute (2) Essential hypertension: We made hydralazine scheduled, and continue as needed IV. Unable to take oral medications at this time. Unable to take oral medications reliably, including multifocal add IV metoprolol for now. Continue to monitor and optimize blood pressure control. Status: Acute (3) MCI (mild cognitive impairment): Status: Acute (4) Obesity (BMI 30-39.9): Status: Acute (5) CVA (cerebral vascular accident): Status: Acute (6) Hypothyroidism: Hypothyroidism, consider mild increase in levothyroxine dose when resuming oral medications and follow-up of thyroid function. Status: Chronic (7) Type 2 diabetes mellitus, with long-term current use of insulin: Held insulin for now given soft blood glucose. Started on PPN. Continue to monitor glucose. Resume insulin once glucose increasing again. Uncontrolled diabetes. A1c 11.6. Unfortunately she has not adherent well with her insulin therapy, and caregiver tries to make sure she takes it as well as she can, but unless she has constant supervision not likely to be taking her insulin regularly. Sliding scale insulin. Low-dose Lantus. Discussed with her senior housekeeper as well who is very concerned regarding her ability to understand instructions and follow through with therapeutic regimens. Risk for missed dosing and inadvertent self-harm. Status: Chronic (8) COPD (chronic obstructive pulmonary disease): Status: Acute Additional A&P Information Alkaline phosphatase elevation: Unremarkable right upper quadrant ultrasound. Hypokalemia: Replaced Plan for today: Switch to oral diet as per swallow evaluation. Monitor for hypoxia or cough during meals. Stop TPN. Change antihypertensives. Increase Imdur to 60 mg daily. Continue with home dose of lisinopril. Change from IV to oral metoprolol at home dose 25 mg twice daily. Continue with hydralazine as needed. Will increase antihypertensives with goal of less than 140/90 mmHg. Continue to hold off Zoloft. Insulin sliding scale. Change from DE aspirin to oral aspirin 81 mg daily. Continue with case management for guardianship. Discharge planning: Patient would need discharge to SNF given inability to take care of herself anymore given severe stroke. Attestations Medical Necessity Statement*: Requires further hospitalization for management of acute encephalopathy in setting of stroke while safe discharge planning is sought. Time Spent in Patient Care: Greater than 35 minutes (>than 50% of time spent in counselling and/or direct pt care on unit). 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
[2021-05-06 20:58] LABS: Glucose Point of Care 217 mg/dL (70-110)
[2021-05-06] MEDS: enoxaparin 40 mg/0.4 mL Syringe SUBCUT (21:05)
[2021-05-07] VITALS (8 sets, daily range): BP systolic 143–177; BP diastolic 75–135; PULSE 61–87; RESP 18–24; TEMP 36.6–37.1; O2SAT 96–100
[2021-05-07 02:57] LABS: Basophils % 0.2 %; Hematocrit 42.4 % (37.0-47.0); Hemoglobin 14.3 g/dL (11.5-15.3); Lymphocytes # 1.3 10^3/uL (0.8-4.8); Lymphocytes % 13.5 %; Mean Corpuscular HGB Conc 33.7 g/dL (30.0-36.0); Mean Corpuscular Hemoglobin 29.5 pg (28.0-34.0); Mean Corpuscular Volume 87.6 fl (81-99); Monocytes # 0.6 10^3/uL (0.2-0.9); Monocytes % 5.7 %; Neutrophils # 7.97 10^3/uL (1.8-7.7); Neutrophils % 80.3 %; Nucleated Red Blood Cells % 0 %; Platelet Count 188 10^3/cmm (130-400); Red Blood Count 4.84 10^6/uL (4.1-5.3); Red Cell Distribution Width 12.9 % (12.1-15.1); White Blood Count 9.9 10^3/uL (4.0-10.0)
[2021-05-07 05:14] LABS: Alanine Aminotransferase 12 U/L (0-33); Albumin Level 3.5 g/dL (3.5-5.2); Alkaline Phosphatase 128 IU/L (35-105); Anion Gap 19.8 (5-19); Aspartate Amino Transferase 10 U/L (0-32); Blood Urea Nitrogen 32 mg/dL (8-23); Calcium 9.6 mg/dL (8.5-10.5); Carbon Dioxide 18 mmol/L (22-29); Chloride 108 mmol/L (98-107); Globulin 2.5 g/dL (1.3-4.6); Glomerular Filtration Rate 71.3 mL/min (90-130); Glucose 232 mg/dL (65-115); Osmolality Calculated 308 mOsm/kg (285-295); Potassium 3.8 mmol/L (3.5-5.1); Sodium 142 mmol/L (136-145); Total Bilirubin 0.5 mg/dL (0.15-1.2)
[2021-05-07] MEDS: isosorbide mononitrate ER 60 mg Tablet PO (06:21)
[2021-05-07 06:50] LABS: Glucose Point of Care 232 mg/dL (70-110)
--- NOTE | 2021-05-07 07:42 | PC.NURSE ---
Shift Note Frequent safety and comfort rounds continue. Orders and/or nursing care completed as indicated. Patient monitored for response to intervention and treatment(s). Education provided includes staying in bed and using callbell to get up. Patient and/or motor vehicle field representative is confused and unable to understand completely. Will continue to monitor.
--- NOTE | 2021-05-07 08:50 | PC.CHAP ---
Pastoral Care Encounter/Spiritual Assessment Type of Contact [] Declined forensic science examiner visit [] Patient/Family/Request visit [] Outpatient visit [] Follow-up visit [] Physician referral [] Code/Alert [x] Routine visit [] Staff referral [] Actively dying [] Patient sleeping [] Family support [] [] Out of room [] Palliative care [] [] Receiving care in room [] Pre-surgical visit [] Trauma [] Long length of stay [] ICU visit [] Other: Relational/Emotional Strength [] Patient feels connected with others/family/visitors/staff [] Distress [] Loneliness/isolation [] Abandonment Spirituality of Patient [] Person of Verónica [] Attends Judaism of their Verónica [] Believes in Prayer [] Reads Bible or Amish materials [x] There are Spiritual issues to be addressed Hair And Makeup Designer Interventions [x] Prayer [] Active listening [x] Non-anxious presence [x] Spiritual/emotional support [] Crisis/trauma care [] Spiritual counseling [] Bereavement support [] Provided bereavement packet [] Provided Bible/devotional materials [] Provided toy/stuffed animal, coloring book to patient or family member [] Provided Communion [] Anointing/[place] [] Salvation [x] Completed spiritual assessment [] Other: Impact on Illness or Injury [] Angry [] Fearful [] Anxious [x] Often cries [] Exhaustion [] Unable to work [] Unable to attend voodoo [] Unable to walk/stand [] Unable to read [] Unable to drive [] Unable to eat/drink [] Unable to sleep [] Unable to be with family [] Patient intubated [] Other: Summary Pt sitting on edge of bed eating breakfast. Hair And Makeup Designer introduced self and asked patient if she was on the mend. At this the Pt began to cry. Hair And Makeup Designer sat in chair and wanted for a few moments. A nurse came in and told forensic science examiner the Pt had a stroke and when admitted was doing poorly, even unable to swallow. She has improved a great deal. Pt continued to cry. Hair And Makeup Designer patted pt on the back trying to comfort her. She would settle and then begin to cry again. She would look at the forensic science examiner and begin to cry. Hair And Makeup Designer stayed for some time but my presence did not seem to be helping but instead making her more upset. Therefore, after a time forensic science examiner told Pt the forensic science examiner would leave so she would not continue to be upset. Hair And Makeup Designer tried to encourage her telling her she was in good hands and the staff would provide her with excellent care. Time spent with patient 30 m
[2021-05-07] MEDS: insulin lispro 100 unit/1 mL SUBCUT ×3 (09:07→17:48)
[2021-05-07] MEDS: levothyroxine 137 mcg Tablet PO (09:09)
[2021-05-07] MEDS: lisinopril 20 mg Tablet 40 MG PO (09:09)
[2021-05-07] MEDS: clopidogrel 75 mg Tablet PO (09:09)
[2021-05-07] MEDS: atorvastatin 40 mg Tablet 80 MG PO (09:09)
[2021-05-07] MEDS: aspirin 81 mg Chew Tablet PO (09:10)
[2021-05-07] MEDS: metoprolol tartrate 25 mg Tablet PO ×2 (09:10→17:49)
[2021-05-07 11:20] LABS: Glucose Point of Care 261 mg/dL (70-110)
--- NOTE | 2021-05-07 13:20 | PC.SOCIAL ---
IMM UPDATED IMM dated and initialed and copy given to patient
--- NOTE | 2021-05-07 16:47 | PM.PN ---
Subjective Subjective: Interval history: No acute events overnight. Status quo. Blood pressure is better but still mildly elevated. Patient continues to eat well. Working with physical therapy. Vitals/I&O/Wt Last Vital Signs Temp 98.2 F 05/07/21 12:00 Pulse 78 05/07/21 12:00 Resp 18 05/07/21 12:00 BP 155/75 05/07/21 12:00 Pulse Ox 98 05/07/21 12:00 05/07/21 05/07/21 05/07/21 06:59 14:59 22:59 Intake Total 480 / 480 Output Total 1200 / 1500 Balance -1200 / -808.5 480 / 480 Physical Exam Narrative: EXAM NARRATIVE: Alert to Self Const: COMMON NORMALS: no acute distress ORIENTATION/CONSCIOUSNESS: Yes confused HENMT: COMMON NORMALS: normocephalic, atraumatic and oropharynx normal HEAD & SCALP: normocephalic and atraumatic Neck/C-Spine: COMMON NORMALS: no meningeal signs and no JVD Chest: CHEST: Yes Symmetrical chest wall rise Resp: COMMON NORMALS: normal respiratory effort and clear to auscultation bilaterally AUSCULTATION: clear to auscultation bilaterally Cardio: COMMON NORMALS: no JVD, regular rate, regular rhythm, S1 normal heart sound present, S2 normal heart sound present, No murmurs present (Cardio), No rub (Cardio) and Peripheral pulses 2+ throughout RATE: regular rate RHYTHM: regular rhythm HEART SOUNDS: S1 normal heart sound present and S2 normal heart sound present PERIPHERAL PULSES: Peripheral pulses 2+ throughout OTHER: ESM In aortic Area GI: COMMON NORMALS: Normal to inspection, nondistended, normoactive bowel sounds present, Soft to palpation, non-tender, No hepatosplenomegaly present and no masses AUSCULTATION: Yes normoactive bowel sounds PALPATION: Yes Soft to palpation and Yes No hepatosplenomegaly present RECTAL EXAM: deferred Extremity: COMMON NORMALS: no joint enlargement, no clubbing, cyanosis or edema and no pedal edema Neuro: MENINGEAL SIGNS: Yes no meningeal signs SPEECH: expressive aphasia SENSORY EXAM: Yes Normal double simultaneous stimulation for sensation MOTOR EXAM: Other motor observations present (4/5, 3/5 RUE. R sided facial droop) OTHER: Visual duncan difficult to assess but appear close to normal Skin: COMMON NORMALS: no rashes or lesions noted GENERAL SKIN EXAM: no rashes or lesions noted Urinary Catheter Management: Doshi: Cath Placed During This Visit: yes Reason for Continuing Indwelling Catheter: Accurate Measurement of Urinary Output in Critically Ill Patients Urinary Catheter Date of Insertion: 05/01/21 Urinary Catheter Time of Insertion: 14:30 Data : 05/07/21 02:21 05/07/21 02:21 A&P Assessment and plan (1) Acute encephalopathy: Secondary to extensive stroke. Improving. Continue to hold off on nightly Zoloft. PT/OT/speech evaluation. Continue with oral aspirin. Acute left coronary data infarct without hemorrhage noted on MRI. Nodule enhancing lesion in the right harrison radiata which may be from subacute infarct. Differential includes possible metastatic site, active demyelination and infection. There is also serpiginous enhancement within the left coronary data lesion. Recommended follow-up MRI brain with contrast in 4-6 weeks to evaluate for any interval change. Infectious and neoplastic changes need to be excluded. Progression of nonenhancing T2 and FLAIR signal hyperintensities which may be from chronic microvascular ischemic disease, hypertension or diabetes. Carotid duplex with bilateral ICA stenosis less than 50%. TTE with normal ejection fraction, grade 1 diastolic dysfunction, severe aortic valve stenosis, mean gradient 10.9, EMILY 0.93. Worsened aortic stenosis from June 2020. Ongoing discharge planning by case management. She has not been able to understand or follow complex instructions. Living alone posing a danger to herself. Will need placement, pending guardianship via office of Mr. Levi Saez. Superimposed on past mild cognitive impairment. Status: Acute (2) Essential hypertension: Blood pressure is better but still mildly elevated. Goal blood pressure less than 140/90 mmHg. Continue with Imdur 60 mg, lisinopril at 40 mg, metoprolol 25 mg twice daily. Add amlodipine 10 mg oral daily. Status: Acute (3) MCI (mild cognitive impairment): Status: Acute (4) Obesity (BMI 30-39.9): Status: Acute (5) CVA (cerebral vascular accident): Status: Acute (6) Hypothyroidism: Hypothyroidism, consider mild increase in levothyroxine dose when resuming oral medications and follow-up of thyroid function. Status: Chronic (7) Type 2 diabetes mellitus, with long-term current use of insulin: Blood sugar mildly elevated. Started on diet again. Insulin sliding scale. Restart glargine 10 units nightly. Status: Chronic (8) COPD (chronic obstructive pulmonary disease): Status: Acute Plan Discharge planning: Would need to discharge to SNF given degree take care of herself. Pursuing guardianship as patient does not have any capability of making her own decisions currently. Already has state appointed conservatorship with Mr. Levi Saez. He is pursuing medical guardianship as well. Full code. Dysphagia pur?e 1 diet carb consistent. Lovenox for DVT prophylaxis. Pepcid for PUD prophylaxis Attestations Medical Necessity Statement*: Requires further hospitalization for extensive stroke while safe discharge planning and guardianship is sought given cognitive impairment and metabolic encephalopathy secondary to stroke and as patient is not able to take care of herself anymore Time Spent in Patient Care: 16 - 35 minutes Coding Level of Care Code Acute Director Religious Education for [facility] Fwd Diagnoses Acute encephalopathy G93.40 Essential hypertension I10 MCI (mild cognitive impairment) G31.84 Obesity (BMI 30-39.9) E66.9 CVA (cerebral vascular accident) I63.9 Hypothyroidism E03.9 Type 2 diabetes mellitus, with long-term current use of insulin E11.9; Z79.4 COPD (chronic obstructive pulmonary disease) J44.9
[2021-05-07 16:52] LABS: Glucose Point of Care 351 mg/dL (70-110)
[2021-05-07] MEDS: amlodipine 10 mg Tablet PO (17:49)
[2021-05-07 20:32] LABS: Glucose Point of Care 221 mg/dL (70-110)
[2021-05-07] MEDS: famotidine 20 mg Tablet PO (21:57)
[2021-05-07] MEDS: enoxaparin 40 mg/0.4 mL Syringe SUBCUT (21:57)
[2021-05-07] MEDS: insulin glargine 100 units/1 mL 10 UNIT SUBCUT (23:08)
[2021-05-08] VITALS (7 sets, daily range): BP systolic 140–166; BP diastolic 71–87; PULSE 57–74; RESP 12–23; TEMP 36.6–36.9; O2SAT 93–98
[2021-05-08] MEDS: isosorbide mononitrate ER 60 mg Tablet PO (06:17)
[2021-05-08 06:54] LABS: Glucose Point of Care 151 mg/dL (70-110)
[2021-05-08] MEDS: lisinopril 20 mg Tablet 40 MG PO (09:10)
[2021-05-08] MEDS: insulin lispro 100 unit/1 mL SUBCUT ×2 (09:10→12:36)
[2021-05-08] MEDS: atorvastatin 40 mg Tablet 80 MG PO (09:10)
[2021-05-08] MEDS: metoprolol tartrate 25 mg Tablet PO ×2 (09:11→18:36)
[2021-05-08] MEDS: levothyroxine 137 mcg Tablet PO (09:11)
[2021-05-08] MEDS: aspirin 81 mg Chew Tablet PO (09:11)
[2021-05-08] MEDS: amlodipine 10 mg Tablet PO (09:11)
[2021-05-08] MEDS: clopidogrel 75 mg Tablet PO (09:11)
--- NOTE | 2021-05-08 10:24 | PC.CHAP ---
Pastoral Care Encounter/Spiritual Assessment Type of Contact [] Declined briefcase sewer visit [] Patient/Family/Request visit [] Outpatient visit [] Follow-up visit [] Physician referral [] Code/Alert [x] Routine visit [] Staff referral [] Actively dying [] Patient sleeping [] Family support [] [] Out of room [] Palliative care [] [] Receiving care in room [] Pre-surgical visit [] Trauma [] Long length of stay [] ICU visit [] Other: Relational/Emotional Strength [] Patient feels connected with others/family/visitors/staff [] Distress [] Loneliness/isolation [] Abandonment Spirituality of Patient [] Person of Verónica [] Attends Congregational of their Verónica [] Believes in Prayer [] Reads Bible or Congregation materials [] There are Spiritual issues to be addressed Lemon Picker Interventions [x] Prayer x] Active listening [x] Non-anxious presence [x] Spiritual/emotional support [] Crisis/trauma care [] Spiritual counseling [] Bereavement support [] Provided bereavement packet [] Provided Bible/devotional materials [] Provided toy/stuffed animal, coloring book to patient or family member [] Provided Communion [] Anointing/[place] [] Salvation [x] Completed spiritual assessment [] Other: Impact on Illness or Injury [] Angry [] Fearful [] Anxious [] Often cries [] Exhaustion [] Unable to work [] Unable to attend jewish [] Unable to walk/stand [] Unable to read [] Unable to drive [] Unable to eat/drink [] Unable to sleep [] Unable to be with family [] Patient intubated [] Other: Summary patient setting up in chair, having breakfast.. alert- does not communicate with people Time spent with patient 5 min
[2021-05-08 12:00] LABS: Glucose Point of Care 327 mg/dL (70-110)
[2021-05-08 12:19] LABS: SARS Covid-2 Antigen Negative (Negative)
--- NOTE | 2021-05-08 14:22 | P.PN_ITS ---
Subjective Subjective: Interval history: No acute events overnight. Today morning and when seen was sitting in chair by herself. Pleasant. Following simple commands. Recognizes me in the room. Still aphasic. Has remained hemodynamically stable and afebrile. Patient's roommate granddaughter positive for COVID-19. Rapid COVID-19 antigen negative for patient. Blood pressures better controlled. Vitals/I&O/Wt Last Vital Signs Temp 98.5 F 05/08/21 12:00 Pulse 66 05/08/21 12:00 Resp 20 H 05/08/21 12:00 BP 143/72 05/08/21 12:00 Pulse Ox 94 05/08/21 12:00 05/07/21 05/08/21 05/08/21 22:59 06:59 14:59 Intake Total 240 / 720 240 / 240 Output Total 0 / 0 450 / 450 Balance 240 / 720 -450 / 270 240 / 240 Physical Exam Narrative: EXAM NARRATIVE: Alert to Self Const: COMMON NORMALS: no acute distress ORIENTATION/CONSCIOUSNESS: Yes co nfused HENMT: COMMON NORMALS: normocephalic, atraumatic and oropharynx normal HEAD & SCALP: normocephalic and atraumatic Neck/C-Spine: COMMON NORMALS: no meningeal signs and no JVD Chest: CHEST: Yes Symmetrical chest wall rise Resp: COMMON NORMALS: normal respiratory effort and clear to auscultation bilaterally AUSCULTATION: clear to auscultation bilaterally Cardio: COMMON NORMALS: no JVD, regular rate, regular rhythm, S1 normal heart sound present, S2 normal heart sound present, No murmurs present (Cardio), No rub (Cardio) and Peripheral pulses 2+ throughout RATE: regular rate RHYTHM: regular rhythm HEART SOUNDS: S1 normal heart sound present and S2 normal heart sound present PERIPHERAL PULSES: Peripheral pulses 2+ throughout OTHER: ESM In aortic Area GI: COMMON NORMALS: Normal to inspection, nondistended, normoactive bowel sounds present, Soft to palpation, non-tender, No hepatosplenomegaly present and no masses AUSCULTATION: Yes normoactive bowel sounds PALPATION: Yes Soft to palpation and Yes No hepatosplenomegaly present RECTAL EXAM: deferred Extremity: COMMON NORMALS: no joint enlargement, no clubbing, cyanosis or edema and no pedal edema Neuro: MENINGEAL SIGNS: Yes no meningeal signs SPEECH: expressive aphasia SENSORY EXAM: Yes Normal double simultaneous stimulation for sensation MOTOR EXAM: Other motor observations present (4/5, 3/5 RUE. R sided facial droop) OTHER: Visual duncan difficult to assess but appear close to normal Skin: COMMON NORMALS: no rashes or lesions noted GENERAL SKIN EXAM: no rashes or lesions noted Urinary Catheter Management: Doshi: Cath Placed During This Visit: yes Reason for Continuing Indwelling Catheter: Perioperative Use in Selected Surgeries Urinary Catheter Date of Insertion: 05/01/21 Urinary Catheter Time of Insertion: 14:30 Data : 05/07/21 02:21 05/07/21 02:21 A&P Assessment and plan (1) Acute encephalopathy: Secondary to extensive stroke. Improving. Continue to hold off on nightly Zoloft. PT/OT/speech evaluation. Continue with oral aspirin. Acute left coronary data infarct without hemorrhage noted on MRI. Nodule enhancing lesion in the right harrison radiata which may be from subacute infarct. Differential includes possible metastatic site, active demyelination and infect ion. There is also serpiginous enhancement within the left coronary data lesion. Recommended follow-up MRI brain with contrast in 4-6 weeks to evaluate for any interval change. Infectious and neoplastic changes need to be excluded. Progression of nonenhancing T2 and FLAIR signal hyperintensities which may be from chronic microvascular ischemic disease, hypertension or diabetes. Carotid duplex with bilateral ICA stenosis less than 50%. TTE with normal ejection fraction, grade 1 diastolic dysfunction, severe aortic valve stenosis, mean gradient 10.9, EMILY 0.93. Worsened aortic stenosis from June 2020. Ongoing discharge planning by case management. She has not been able to understand or follow complex instructions. Living alone posing a danger to herself. Will need placement, pending guardianship via office of Mr. Levi Saez. Superimposed on past mild cognitive impairment. Status: Acute (2) Essential hypertension: Blood pressure is better but still mildly elevated. Goal blood pressure less than 140/90 mmHg. Continue with Imdur 60 mg, lisinopril at 40 mg, metoprolol 25 mg twice daily. Add amlodipine 10 mg oral daily. Status: Acute (3) MCI (mild cognitive impairment): Status: Acute (4) Obesity (BMI 30-39.9): Status: Acute (5) CVA (cerebral vascular accident): Status: Acute (6) Hypothyroidism: Hypothyroidism, consider mild increase in levothyroxine dose when resuming oral medications and follow-up of thyroid function. Status: Chronic (7) Type 2 diabetes mellitus, with long-term current use of insulin: Blood sugar mildly elevated. Started on diet again. Insulin sliding scale. Restart glargine 10 units nightly. Status: Chronic (8) COPD (chronic obstructive pulmonary disease): Status: Acute Plan Discharge planning: Would need to discharge to SNF given degree take care of herself. Pursuing guardianship as patient does not have any capability of making her own decisions currently. Already has state appointed conservatorship with Mr. Levi Saez. He is pursuing medical guardianship as well. Full code. Dysphagia pur?e 1 diet carb consistent. Lovenox for DVT prophylaxis. Pepcid for PUD prophylaxis Plan for today: Check COVID-19 rapid antigen. Continue to monitor blood pressur es. DC Doshi catheter. PT/OT. Increase glargine to 15 units at bedtime, increase sliding scale to high-dose protocol. Safe discharge planning. Attestations Medical Necessity Statement*: Requires further hospitalization while safe discharge planning and guardianship is awaited for SNF placement given extensive stroke leading to cognitive impairment. Time Spent in Patient Care: 16 - 35 minutes Coding Level of Care Code Acute Vice President Investor Relations for [facility] Fwd Diagnoses Acute encephalopathy G93.40 Essential hypertension I10 MCI (mild cognitive impairment) G31.84 Obesity (BMI 30-39.9) E66.9 CVA (cerebral vascular accident) I63.9 Hypothyroidism E03.9 Type 2 diabetes mellitus, with long-term current use of insulin E11.9; Z79.4 COPD (chronic obstructive pulmonary disease) J44.9
[2021-05-08 17:06] LABS: Glucose Point of Care 119 mg/dL (70-110)
[2021-05-08 21:14] LABS: Glucose Point of Care 245 mg/dL (70-110)
[2021-05-08] MEDS: famotidine 20 mg Tablet PO (21:48)
[2021-05-08] MEDS: enoxaparin 40 mg/0.4 mL Syringe SUBCUT (21:48)
[2021-05-08] MEDS: insulin glargine 100 units/1 mL 15 UNIT SUBCUT (21:49)
[2021-05-09] VITALS: BP 149/76; PULSE 67; RESP 23; TEMP 36.6
[2021-05-09 04:00] VITALS: PULSE 67
[2021-05-09 05:06] VITALS: PULSE 67
[2021-05-09] MEDS: isosorbide mononitrate ER 60 mg Tablet PO (05:48)
[2021-05-09 05:51] VITALS: BP 175/94; PULSE 79; RESP 24; TEMP 36.8; O2SAT 94
[2021-05-09 06:19] LABS: Glucose Point of Care 208 mg/dL (70-110)
[2021-05-09] MEDS: levothyroxine 137 mcg Tablet PO (08:33)
[2021-05-09] MEDS: insulin lispro 100 unit/1 mL SUBCUT ×2 (08:33→12:00)
[2021-05-09] MEDS: amlodipine 10 mg Tablet PO (08:33)
[2021-05-09] MEDS: atorvastatin 40 mg Tablet 80 MG PO (08:33)
[2021-05-09] MEDS: lisinopril 20 mg Tablet 40 MG PO (08:33)
[2021-05-09] MEDS: aspirin 81 mg Chew Tablet PO (08:33)
[2021-05-09] MEDS: clopidogrel 75 mg Tablet PO (08:33)
[2021-05-09] MEDS: metoprolol tartrate 25 mg Tablet PO (08:34)
[2021-05-09 10:05] VITALS: BP 165/88; PULSE 56; RESP 18; TEMP 37.1; O2SAT 97
--- NOTE | 2021-05-09 11:17 | PC.SOCIAL ---
IMM update IMM updated with patient's guardian Levi Traylor. Verbalized an understanding. Initialled, dated, timed, and placed in chart.
--- NOTE | 2021-05-09 11:49 | P.DS_ITS ---
Discharge Providers Date of Admission: 04/30/21 05:18 Date of Discharge: May 09, 2021 Attending Provider at Admission: Ramakrishna Maldonado MD Attending Provider at Discharge: Ranulfo Mcdonough MD Primary Care Provider: Luciana Espinoza Diagnoses at Discharge Discharge Diagnosis (1) Acute encephalopathy: Status: Acute (2) Essential hypertension: Status: Acute (3) MCI (mild cognitive impairment): Status: Acute (4) Obesity (BMI 30-39.9): Status: Acute (5) CVA (cerebral vascular accident): Status: Acute (6) Hypothyroidism: Status: Chronic (7) Type 2 diabetes mellitus, with long-term current use of insulin: Status: Chronic (8) COPD (chronic obstructive pulmonary disease): Status: Acute Reason for Visit Reason for Visit: AMS, DIABETIC Hospital Course Hospital Course History as per H&P: Emily Little is a 70 year old female with past medical history of, hypertension's and CAD status post NM, CVA, diabetes, mild cognitive impairment, was brought in by the EMS with chief complaint of altered mental status. On admission patient was oriented only to self. She was last seen well 3 days ago by her wine blender. On admission she was found to be hypertensive and hyperglycemic. Hospital course: Patient admitted to the hospital for management of hypertensive urgency and hyperglycemia leading to acute metabolic encephalopathy. On admission she was started on Cardene drip and received IV insulin protocol. Patient's blood pressures and blood sugars improved though she continues to remain very sluggish in response and encephalopathic. Further work-up from MRI revealed lacunar infarct. On admission patient was n.p.o. because of inability to swallow. She was seen by physical therapy, Occupational Therapy and speech therapy and her diet was advanced slightly gradually. She is currently taking pur?es dysphagia 1 diet. Patient has been improving gradually with physical therapy. Her blood pressures have been managed well on adjusted antihypertensives. She is tolerating the modified diet well. Because of her history of cognitive impairment which has gotten worse now given extensive stroke and inability to take care of herself or make any medical decision guardianship was sought to make medical decisions. She has not been able to understand or follow complex instructions.? Living alone posing a danger to herself. Patient already has Mr. Saez who is conservator/guardian for financial aspects of her life. Because of above safe discharge planning were discussed in detail and plan is to discharge her to SNF. Patient has been obtained and is being discharged in hemodynamically stable condition on dysphagia 1 pur?ed diet on adjusted and antihypertensives. COVID-19 rapid antigen has been negative. Physical Exam Narrative: EXAM NARRATIVE: Alert to Self Const: COMMON NORMALS: no acute distress ORIENTATION/CONSCIOUSNESS: Yes confused HENMT: COMMON NORMALS: normocephalic, atraumatic and oropharynx normal HEAD & SCALP: normocephalic and atraumatic Neck/C-Spine: COMMON NORMALS: no meningeal signs and no JVD Chest: CHEST: Yes Symmetrical chest wall rise Resp: COMMON NORMALS: normal respiratory effort and clear to auscultation bilaterally AUSCULTATION: clear to auscultation bilaterally Cardio: COMMON NORMALS: no JVD, regular rate, regular rhythm, S1 normal heart sound present, S2 normal heart sound present, No murmurs present (Cardio), No rub (Cardio) and Peripheral pulses 2+ throughout RATE: regular rate RHYTHM: regular rhythm HEART SOUNDS: S1 normal heart sound present and S2 normal heart sound present PERIPHERAL PULSES: Peripheral pulses 2+ throughout OTHER: ESM In aortic Area GI: COMMON NORMALS: Normal to inspection, nondistended, normoactive bowel sounds present, Soft to palpation, non-tender, No hepatosplenomegaly present and no masses AUSCULTATION: Yes normoactive bowel sounds PALPATION: Yes Soft to palpation and Yes No hepatosplenomegaly present RECTAL EXAM: deferred Extremity: COMMON NORMALS: no joint enlargement, no clubbing, cyanosis or edema and no pedal edema Neuro: MENINGEAL SIGNS: Yes no meningeal signs SPEECH: expressive aphasia SENSORY EXAM: Yes Normal double simultaneous stimulation for sensation MOTOR EXAM: Other motor observations present (4/5, 3/5 RUE. R sided facial droop) OTHER: Visual duncan difficult to assess but appear close to normal Skin: COMMON NORMALS: no rashes or lesions noted GENERAL SKIN EXAM: no rashes or lesions noted Urinary Catheter Management: Doshi: Cath Placed During This Visit: yes Reason for Continuing Indwelling Catheter: Acute Urinary Retention or Obstruction Urinary Catheter Date of Insertion: 05/01/21 Urinary Catheter Time of Insertion: 14:30 Discharge Data Studies Completed and Pending Completed Studies During Hospitalization Category Date Time Status CT head wo con* [id number] Stat Cat Scan 04/29/21 16:11 Completed XR chest 1V portable [id number] Stat Exams 04/29/21 16:11 Completed MR head wo/w con [id number] Routine MRI 05/03/21 10:00 Completed CV carotid duplex BI* [id number] Routine Ultrasound 05/02/21 19:31 Completed CV. echo complete* [id number] Routine Ultrasound 05/02/21 19:44 Completed US abdomen limited [id number] Routine Ultrasound 05/01/21 21:58 Completed Radiology Impressions Chest X-Ray 04/29/21 16:11 IMPRESSION: No acute findings. Head CT 04/29/21 16:11 IMPRESSION: No acute intracranial abnormality. Abdomen Ultrasound 05/01/21 21:58 IMPRESSION: Normal RIGHT upper quadrant ultrasound. Head MRI 05/03/21 10:00 IMPRESSION: 1. Acute LEFT harrison radiata infarct without hemorrhage. 2. There is a nodular enhancing lesion in the RIGHT harrison radiata which may be from a subacute infarct. No diffusion-weighted abnormality in this time. Differential includes metastatic site, active demyelination and infection. There is also serpiginous enhancement within the LEFT harrison radiata lesion. Recommend follow-up MRI brain with contrast in 4-6 weeks to evaluate for any interval change. Infectious and neoplastic changes need to be excluded. 3. Progression of nonenhancing T2 and FLAIR signal hyperintensities which may be from chronic microvascular ischemic disease, hypertension or diabetes. Echocardiogram: CONCLUSIONS ?1-Normal left ventricular cavity size. Normal left ventricular?systolic functio n. No regional wall motion abnormalities. Left ?ventricular ejection fraction is estimated at 65 %. Grade I/IV?diastolic dysfunction (abnormal relaxation filling pattern), ?normal to mildly elevated filling pressures. ?2-Severe aortic valve calcification. Severe aortic valve?stenosis, mean gradient 10.9 mmHg, EMILY 0.93 cm squared.no aortic valve ?regurgitation.? ?3-Moderately thickened mitral valve. No mitral valve stenosis. ?Trace mitral valve regurgitation. ?4-There is no pericardial effusion. ?5-Pulmonary artery systolic pressure is within normal limits. ?6-Right atrial pressure is around 5 mm of mercury. ?7-When compared to the prior echocardiogram dated 03 July 2020?there is worsening of aortic valve from moderate stenosis 1.4 cm ?2,? moderate to severe 0.94 cm2 with mean pressure gradient of?10 mmHg.? Due to discrepancy in the aortic valve area and?gradient across the aortic valve, transesophageal echocardiogram?may need to performed to assess the severity of the valve. ?Harshad Dorsey MD ?(Electronically Signed) ?Final Date:? ? ? 02 May 2021 ? 17:52 Laboratory Results WBC 9.9 10^3/uL (4.0-10.0) 05/07/21 02:21 RBC 4.84 10^6/uL (4.1-5.3) 05/07/21 02:21 Hgb 14.3 g/dL (11.5-15.3) 05/07/21 02:21 Hct 42.4 % (37.0-47.0) 05/07/21 02:21 MCV 87.6 fl (81-99) 05/07/21 02:21 MCH 29.5 pg (28.0-34.0) 05/07/21 02:21 MCHC 33.7 g/dL (30.0-36.0) 05/07/21 02:21 RDW 12.9 % (12.1-15.1) 05/07/21 02:21 Plt Count 188 10^3/cmm (130-400) 05/07/21 02:21 MPV 11.0 fL (7.4-10.4) H 05/07/21 02:21 Neut % (Auto) 80.3 % 05/07/21 02:21 Lymph % (Auto) 13.5 % 05/07/21 02:21 [place] % (Auto) 5.7 % 05/07/21 02:21 Eos % (Auto) 0.0 % 05/07/21 02:21 Baso % (Auto) 0.2 % 05/07/21 02:21 Neut # (Auto) 7.97 10^3/uL (1.8-7.7) H 05/07/21 02:21 Lymph # (Auto) 1.3 10^3/uL (0.8-4.8) 05/07/21 02:21 [place] # (Auto) 0.6 10^3/uL (0.2-0.9) 05/07/21 02:21 Eos # (Auto) 0.0 10^3/uL (0.0-0.8) 05/07/21 02:21 Baso # (Auto) 0.0 10^3/uL (0.0-0.1) 05/07/21 02:21 Nucleated RBC % (auto) 0 % 05/07/21 02:21 Nucleated RBCs # 0.0 /100WBC 05/07/21 02:21 Specimen Type Arterial 04/29/21 16:37 Sample Site Radial, left 04/29/21 16:37 ABG pH 7.43 (7.35-7.45) 04/29/21 16:37 ABG pCO2 38.2 mmHg (35-45) 04/29/21 16:37 ABG pO2 73.4 mmHg (80.0-100.0) L 04/29/21 16:37 ABG HCO3 25.4 mmol/L (22-26) 04/29/21 16:37 ABG O2 Saturation 96.5 04/29/21 16:37 ABG Base Excess 1.2 mmol/L (-2.0-2.0) 04/29/21 16:37 Shabbir Test Pos 04/29/21 16:37 A-a O2 Gradient 3.7 mmHg (5-10) L 04/29/21 16:37 Hematocrit 46.1 % (37-47) 04/29/21 16:37 Hgb O2 Saturation 91.7 % (95-100) L 04/29/21 16:37 Carboxyhemoglobin 4.0 %THgb (0.4-20.1) 04/29/21 16:37 Methemoglobin 0.9 % (0.4-1.5) 04/29/21 16:37 Total Hemoglobin 15.0 g/dL (12-16) 04/29/21 16:37 Sodium 135.0 mmol/L (131-143) 04/29/21 16:37 Potassium 4.1 mmol/L (3.5-5.0) 04/29/21 16:37 Glucose 549.0 mg/dL (70-115) H 04/29/21 16:37 Ionized Calcium 1.2 mmol/L (1.1-1.4) 04/29/21 16:37 O2 Delivery Device Room air 04/29/21 16:37 FiO2 21.0 % 04/29/21 16:37 Back Tender Insulation Board ID Cak 04/29/21 16:37 Sodium 142 mmol/L (136-145) 05/07/21 02:21 Potassium 3.8 mmol/L (3.5-5.1) 05/07/21 02:21 Chloride 108 mmol/L (98-107) H 05/07/21 02:21 Carbon Dioxide 18 mmol/L (22-29) L 05/07/21 02:21 Anion Gap 19.8 (5-19) H 05/07/21 02:21 BUN 32 mg/dL (8-23) H 05/07/21 02:21 Creatinine 0.8 mg/dL (0.5-0.9) 05/07/21 02:21 GFR Calculation 71.3 mL/min (90-130) L 05/07/21 02:21 Glucose 232 mg/dL (65-115) H 05/07/21 02:21 POC Glucose 208 mg/dL (70-110) H 05/09/21 06:15 Estimat Average Glucose 286 05/01/21 03:35 Hemoglobin A1c 11.6 % (4.0-6.0) H 05/01/21 03:35 Calculated Osmolality 308 mOsm/kg (285-295) H 05/07/21 02:21 Lactic Acid 1.7 mmol/L (0.5-2.2) 04/29/21 16:52 Calcium 9.6 mg/dL (8.5-10.5) 05/07/21 02:21 Magnesium 1.8 mg/dL (1.7-2.3) 04/29/21 15:40 Total Bilirubin 0.5 mg/dL (0.15-1.2) 05/07/21 02:21 AST 10 U/L (0-32) 05/07/21 02:21 ALT 12 U/L (0-33) 05/07/21 02:21 Alkaline Phosphatase 128 IU/L (35-105) H 05/07/21 02:21 Creatine Kinase 73 U/L (26-192) 04/29/21 15:40 Troponin T Baseline 22 ng/L (0-10) H 04/29/21 15:40 Troponin T 120 Minute 22.59 ng/L (0-10) H 04/29/21 17:42 Delta Troponin T 0.59 ABS# (0-10) 04/29/21 17:42 Troponin T Hi Sens 6Hr 26.65 ng/L (0-10) H 04/29/21 21:56 Troponin T Hi Sens 6Hr Delta 4.65 ng/L (0-12) 04/29/21 21:56 Total Protein 6.0 g/dL (6.6-8.7) L 05/07/21 02:21 Albumin 3.5 g/dL (3.5-5.2) 05/07/21 02:21 Globulin 2.5 g/dL (1.3-4.6) 05/07/21 02:21 Lipase 43 U/L (13-60) 04/29/21 15:40 TSH 6.15 uIU/mL (0.27-4.20) H 04/29/21 17:42 Free T4 0.77 ng/dL (0.82-1.77) L 04/30/21 06:05 Free T4 Index Cancelled 04/30/21 06:05 Thyroxine (T4) Cancelled 04/30/21 06:05 Urine Color Yellow (Yellow) 04/29/21 18:36 Urine Appearance Clear (CLEAR) 04/29/21 18:36 Urine pH 6 (5-7) 04/29/21 18:36 Ur Specific [place] 1.015 (1.005-1.030) 04/29/21 18:36 Urine Protein 2+ (Negative) H 04/29/21 18:36 Urine Glucose (UA) 4+ (Normal) H 04/29/21 18:36 Urine Ketones Negative (Negative) 04/29/21 18:36 Urine Blood Neg (Negative) 04/29/21 18:36 Urine Nitrate Negative (Negative) 04/29/21 18:36 Urine Bilirubin Neg (Negative) 04/29/21 18:36 Urine Urobilinogen Norm mg/dL (Negative) 04/29/21 18:36 Ur Leukocyte Esterase Negative (Negative) 04/29/21 18:36 Urine RBC None /hpf (0-2) 04/29/21 18:36 Urine WBC 0-4 /hpf (0-5) H 04/29/21 18:36 Ur Squamous Epith Cells 0-4 /hpf (0-5) H 04/29/21 18:36 Amorphous Sediment Not Reportable 04/29/21 18:36 Urine Bacteria Trace /hpf (NONE) 04/29/21 18:36 Serum Ketones Negative (Negative) 04/29/21 17:42 Coronavirus 229E (PCR) Not detected (NOT DETECT) 04/30/21 10:03 SARS-CoV-2 (PCR) Not detected (NOT DETECT) 04/30/21 10:03 SARS-CoV-2 Ag (Rapid) Negative (Negative) 05/08/21 11:47 Vitals Last Vital Signs Temp 98.7 F 05/09/21 10:05 Pulse 56 L 05/09/21 10:05 Resp 18 05/09/21 10:05 BP 165/88 05/09/21 10:05 Pulse Ox 97 05/09/21 10:05 Discharge Plan Discharge Patient Disposition: Xfer SNF Condition: Stable Prescriptions: New famotidine 20 mg Tablet 20 mg PO BEDTIME Qty: 30 0RF amlodipine 10 mg Tablet 10 mg PO DAILY 30 Days Qty: 30 0RF aspirin [Children's Aspirin] 81 mg Tablet,Chewable 81 mg PO DAILY Qty: 30 0RF Continued metoprolol tartrate 25 mg tablet 25 mg PO BID Qty: 60 3RF Jardiance 25 mg tablet 25 mg PO DAILY 0RF lisinopril 40 mg tablet 40 mg PO DAILY 0RF rosuvastatin [Crestor] 40 mg tablet 40 mg PO DAILY Qty: 90 0RF levothyroxine 137 mcg tablet 137 mcg PO DAILY 0RF clopidogrel 75 mg tablet 75 mg PO DAILY 0RF metformin 500 mg tablet 500 mg PO BID 0RF Changed isosorbide mononitrate 30 mg tablet extended release 24 hr 60 mg PO QAM Qty: 30 3RF Lantus Solostar U-100 Insulin 100 unit/mL (3 mL) insulin pen 20 unit SUBCUT DAILY Qty: 0 0RF Rx Instructions: take 90 units daily, max dose of 100 unit per day Discontinued aspirin 325 mg Tablet 325 mg PO DAILY 0RF sertraline [Zoloft] 100 mg tablet 200 mg PO BEDTIME 0RF Humalog KwikPen Insulin 100 unit/mL insulin pen 32 unit SUBCUT .BEFORE MEALS MDD 100 units 0RF No Action (DME) diabetic shoes Qty: 1 0RF Rx Instructions: As directed albuterol sulfate 2.5 mg /3 mL (0.083 %) solution for nebulization 2.5 mg INHALATION Q4H PRN (Reason: shortness of breath or wheezing) Qty: 90 0RF (DME) Accu-Chek Alley Plus test strp Strip See Rx Instructions .ROUTE .MEDSUPPLY 0RF Rx Instructions: once a day (DME) OneTouch Verio test strips Strip See Rx Instructions .ROUTE 0RF Rx Instructions: As directed (DME) lancets [OneTouch Delica Lancets] 30 gauge misc See Rx Instructions .ROUTE 0RF Rx Instructions: As directed (DME) pen needle, diabetic [Ultra Thin Pen Needle] 32 gauge x 5/32 needle See Rx Instructions .ROUTE .MEDSUPPLY Qty: 200 0RF Rx Instructions: four daily (DME) Diabetic Shoes See Rx Instructions .ROUTE .MEDSUPPLY Qty: 1 0RF Rx Instructions: As directed ProAir HFA 90 mcg/actuation Hfa Aerosol Inhaler 2 puff INHALATION QID PRN (Reason: Shortness Of Breath) 0RF Discharge Orders: Discharge Order (Routine); Ordered 05/09/21 Ordered By: Ranulfo Mcdonough Referrals: [facility] [Outside] Discharge Diet: As Directed Discharge Activity: Resume usual activity and Increase activity as tolerated Patient Instructions: Opioid Safety Activity Restrictions/Additional Instructions: Dysphagia 1 pur?ed diet Discharge Attestations Time Spent in Discharge Care*: greater than 30 min Specific Discharge Activities: educating and/or supporting family/caregiver, discussing with social work case manager/social workers/dc planners, documenting/other paperwork and evaluating patient/reviewing data Status at Discharge: Cognitive status at discharge: moderately impaired co gnition , Behavioral status at discharge: cooperative , Functional status at discharge: other assisted ambulation , Overall status at discharge: patient has a new baseline Quality Metrics Clinical Quality Measures [ Cerebrovascular Accident { Contraindication to Antithrombotic: None; antithrombotic prescribed; Contraindication to Anticoagulation: Overlap treatment not indicated; Contraindication to Statin: None; Statiin prescribed; Contraindication to tPA: Did not meet criteria;}] Coding Level of Care Code Acute g FW DC note Diagnoses Acute encephalopathy G93.40 Essential hypertension I10 MCI (mild cognitive impairment) G31.84 Obesity (BMI 30-39.9) E66.9 CVA (cerebral vascular accident) I63.9 Hypothyroidism E03.9 Type 2 diabetes mellitus, with long-term current use of insulin E11.9; Z79.4 COPD (chronic obstructive pulmonary disease) J44.9
[2021-05-09 12:03] LABS: Glucose Point of Care 246 mg/dL (70-110)
[2021-05-09 12:13] VITALS: BP 165/88; PULSE 56; RESP 18; TEMP 37.1; O2SAT 97
--- NOTE | 2021-05-09 14:35 | PC.NURSE ---
report phoned to georgina horne.discharged via medicaid transport at [phone]
== END 2021-05-09 14:15 | disposition skilled nursing facility (03) | DRG 64 ==
LOC: ER 20:31 → ER IP 04-30 05:25 → CSU 04-30 16:43
PROVIDERS: Family Medicine; Internal Medicine; Admitting Provider Internal Medicine; Emergency Provider Emergency Medicine; PCP Physician Assistant; Visit Provider Student in an Organized Health Care Education/Training Program
DX: I63.81 Other cerebral infarction due to occlusion or stenosis of small artery (principal); G93.41 Metabolic encephalopathy; G81.91 Hemiplegia, unspecified affecting right dominant side; G93.49 Other encephalopathy; R47.01 Aphasia; R13.10 Dysphagia, unspecified; J44.9 Chronic obstructive pulmonary disease, unspecified; I10 Essential (primary) hypertension; I25.2 Old myocardial infarction; E78.5 Hyperlipidemia, unspecified; E21.3 Hyperparathyroidism, unspecified; E66.9 Obesity, unspecified; Z68.31 Body mass index [BMI] 31.0-31.9, adult; F25.9 Schizoaffective disorder, unspecified; E11.65 Type 2 diabetes mellitus with hyperglycemia; I25.10 Atherosclerotic heart disease of native coronary artery without angina pectoris; Z95.5 Presence of coronary angioplasty implant and graft; F17.210 Nicotine dependence, cigarettes, uncomplicated; I16.0 Hypertensive urgency; I35.0 Nonrheumatic aortic (valve) stenosis; E87.6 Hypokalemia; Z79.4 Long term (current) use of insulin; Z79.84 Long term (current) use of oral hypoglycemic drugs; Z79.02 Long term (current) use of antithrombotics/antiplatelets; Z86.73 Personal history of transient ischemic attack (TIA), and cerebral infarction without residual deficits
CPT/HCPCS: 36415; 36416; 36600; 51702; 70450; 70553; 71045; 76705; 80048; 80051; 80053; 81001; 82009; 82330; 82550; 82805; 82962; 83036; 83605; 83690; 83735; 84439; 84443; 84484; 85025; 87040; 87426; 87635; 92507; 92523; 92526; 92610; 93005; 93306; 93880; 96365; 96366; 96372; 96375; 97110; 97112; 97116; 97161; 97165; 97530; 97535; 99285; J0360; J1650; J1815 ×2; J2405; J3480; J3490; J7030

== ENCOUNTER 2021-06-17 09:11 | Outpatient (CLI) | payer MEDICARE, MEDICAID, SELFPAY ==
--- NOTE | 2021-06-17 09:18 | MR_ITS ---
WS: [id number] MRI HEAD WITHOUT CONTRAST TECHNIQUE: Sagittal T1, T2 axial, T2 axial FLAIR, axial and coronal T1 images, axial susceptibility w eighted imaging, axial diffusion weighted images, and coronal T2 images were obtained. CLINICAL INFORMATION: NODILAR LESION RIGHT GERONIMO RADIATOR COMPARISON: MRI May 03, 2021 FINDINGS: Interval evolution of previously described LEFT geronimo radiata infarct with T2 signal abnormality. No significant mass effect or midline shift. Previously described enhancing lesion in the RIGHT geronimo radiata demonstrates T1 hyperintense laminar necrosis compatible with subacute to chronic ischemia. G adolinium not administered today. Small amount of hemosiderin in this area. No other new intracranial signal abnormalities. Multiple chronic lacunar infarcts in the cerebellum bilaterally. Moderate small vessel changes with m oderate parenchymal volume loss. Normal vascular flow voids at the skull base. Moderate brain stem at rophy unchanged. Chronic lacunar infarcts in the periventricular white matter. Chronic lacunar infarct in the RIGHT th alamus with encephalomalacia. Paranasal sinuses are well aerated. LEFT petrous apex cephalocele uncha nged. Normal optic chiasm and pituitary infundibulum. Moderate to atrophy temporal lobes and hippocampal fo rmations. MR/MR head wo con* [id number] IMPRESSION: 1. Interval evolution of the subacute LEFT geronimo radiata infarct with T2 sign al abnormality and a small amount of laminar necrosis. No mass effect. 2. Previously described enhancing lesion in the RIGHT geronimo radiata likely pradhan bacute to chronic infarct with associated laminar necrosis and hemosiderin in t his area. Gadolinium not administered today. 3. Multiple chronic lacunar infarcts in the cerebellum and RIGHT thalamus. 4. Moderate small vessel changes with moderate parenchymal volume loss. 5. Moderate brain stem atrophy. 6. Moderate symmetric atrophy temporal lobes and hippocampal formations.
== END 2021-06-17 09:12 | disposition home or self-care (01) ==
LOC: RAD 09:11
PROVIDERS: PCP Physician Assistant; Visit Provider Family Medicine
DX: G93.89 Other specified disorders of brain (principal); I63.81 Other cerebral infarction due to occlusion or stenosis of small artery; G31.9 Degenerative disease of nervous system, unspecified
CPT/HCPCS: 70551

== ENCOUNTER → 2021-07-19 09:30 | Outpatient (BNVA) | payer MEDICARE, MEDICAID, SELFPAY | PROVIDERS: PCP Physician Assistant; Visit Provider Internal Medicine | DX: I35.0 Nonrheumatic aortic (valve) stenosis (principal); Z86.73 Personal history of transient ischemic attack (TIA), and cerebral infarction without residual deficits; E66.9 Obesity, unspecified; Z68.30 Body mass index [BMI] 30.0-30.9, adult; E78.5 Hyperlipidemia, unspecified; I10 Essential (primary) hypertension; F17.210 Nicotine dependence, cigarettes, uncomplicated | CPT/HCPCS: 99214 ==

== ENCOUNTER 2021-10-01 12:32 | Outpatient (CLI) | payer MEDICARE, MEDICAID, SELFPAY ==
--- NOTE | 2021-10-01 13:00 | USCV_ITS ---
Emily Little Age: 70 Gender: F : 1950 Exam Date: 10/01/2021 12:54 Ordering Phys: Merritt Teran M.D ([email or web address]) Technologist: Exam Location: [facility] [place] Indication: syncope BP: 134 / 80 HR: 67 Rhythm: Sinus Technical Quality: Adequate MEASUREMENTS (Male / Female) Normal Values 2D ECHO LV Diastolic Diameter PLAX 4.5 cm 4.2 - 5.9 / 3.9 - 5.3 cm LV Systolic Diameter PLAX 2.6 cm IVS Diastolic Thickness 0.9 cm 0.6 - 1.0 / 0.6 - 0.9 cm IVS Systolic Thickness 1.8 cm LVPW Diastolic Thickness 1.3 cm 0.6 - 1.0 / 0.6 - 0.9 cm LVPW Systolic Thickness 1.6 cm LVOT Diameter 2.0 cm LV Ejection Fraction 2D Teich 72.7 % LV Ejection Fraction MOD 2C 61.7 % LV Ejection Fraction 2C AL 63.5 % LA Diameter 3.6 cm Aorta at Sinotubular Diameter 2.7 cm IVC Diameter 1.5 cm M-MODE Aortic Annulus Diameter 2.9 cm LA Ao Ratio MM 1.3 MV E Point Septal Separation 0.6 cm DOPPLER AV Peak Velocity 236.8 cm/s LVOT Peak Velocity 101.0 cm/s AV Area Cont Eq vti 1.4 cm squared AV Area Cont Eq pk 1.4 cm squared MV Area PHT 5.0 cm squared Mitral E to A Ratio 0.8 MV E' Velocity 41.0 cm/s Mitral E to MV E' Ratio 11.4 Mitral E to LV E' Lateral Ratio 9.3 Mitral E to LV E' Septal Ratio 15.2 TR Peak Velocity 215.5 cm/s TR Peak Gradient 18.6 mmHg TV Peak E Velocity 118.0 cm/s Right Atrial Pressure 3.0 mmHg Pulmonary Artery Systolic Pressu 21.6 mmHg FINDINGS Left Ventricle Normal left ventricular size. LV systolic function is normal with EF of 55-60%. No regional wall motion abnormalities. Grade 1 diastolic dysfunction is seen Right Ventricle The right ventricle is normal in size and function. Right Atrium The right atrium is normal in size. Left Atrium The left atrium is normal in size. Mitral Valve Structurally normal mitral valve without significant stenosis or prolapse. There is no mitral regurgitation. Aortic Valve Aortic valve is thickened. Moderate aortic stenosis is seen with EMILY of 1.16cm2 and mean gradient across the arotic valve of 17mmHg. There is no aortic regurgitation. Tricuspid Valve Structurally normal tricuspid valve without significant stenosis. Mild tricuspid regurgitation. Pulmonary artery systolic pressure is normal. Pulmonic Valve Not well visualized Pericardium Normal pericardium without effusion. Aorta Normal ascending aorta dimension. IVC CONCLUSIONS LV systolic function is normal with EF 55 to 60%. Grade 1 diastolic dysfunction. Aortic valve is thickened. Moderate aortic stenosis is seen with aortic valve area of 1.16 cm squared and mean gradient across aortic valve of 17 mmHg. Mild tricuspid regurgitation. Compared to prior echocardiogram from 05/02/2021, aortic valve area is calculated to be higher this time and patient is in range for moderate aortic stenosis Merritt Teran MD (Electronically Signed) Final Date: 02 October 2021 11:24 S
== END 2021-10-01 12:33 | disposition home or self-care (01) ==
LOC: RAD 12:38
PROVIDERS: PCP Physician Assistant; Visit Provider Internal Medicine
DX: I08.2 Rheumatic disorders of both aortic and tricuspid valves (principal)
CPT/HCPCS: 93306

== ENCOUNTER → 2021-12-03 08:24 | Outpatient (BNVA) | payer MEDICARE, MEDICAID, SELFPAY | PROVIDERS: PCP Physician Assistant; Visit Provider Podiatrist Foot & Ankle Surgery | DX: E11.8 Type 2 diabetes mellitus with unspecified complications (principal); E11.42 Type 2 diabetes mellitus with diabetic polyneuropathy; L60.3 Nail dystrophy; I73.9 Peripheral vascular disease, unspecified; L60.8 Other nail disorders; Z79.84 Long term (current) use of oral hypoglycemic drugs; Z79.4 Long term (current) use of insulin | CPT/HCPCS: 11721 ==

== ENCOUNTER → 2022-01-24 09:55 | Outpatient (BNVA) | payer MEDICARE, MEDICAID, SELFPAY | PROVIDERS: PCP Family Medicine; Visit Provider Internal Medicine | DX: I35.0 Nonrheumatic aortic (valve) stenosis (principal); Z86.73 Personal history of transient ischemic attack (TIA), and cerebral infarction without residual deficits; E66.9 Obesity, unspecified; Z68.30 Body mass index [BMI] 30.0-30.9, adult; E78.5 Hyperlipidemia, unspecified; I10 Essential (primary) hypertension; F17.210 Nicotine dependence, cigarettes, uncomplicated | CPT/HCPCS: 99214 ==

== ENCOUNTER → 2022-06-03 09:01 | Outpatient (BNVA) | payer MEDICARE, MEDICAID, SELFPAY | PROVIDERS: PCP Family Medicine; Visit Provider Podiatrist Foot & Ankle Surgery | DX: E11.42 Type 2 diabetes mellitus with diabetic polyneuropathy (principal); L60.3 Nail dystrophy; I73.9 Peripheral vascular disease, unspecified; L60.8 Other nail disorders; Z79.4 Long term (current) use of insulin; Z79.84 Long term (current) use of oral hypoglycemic drugs | CPT/HCPCS: 11721 ==

== ENCOUNTER → 2022-07-25 11:03 | Outpatient (BNVA) | payer MEDICARE, MEDICAID, SELFPAY | PROVIDERS: PCP Family Medicine; Visit Provider Internal Medicine | DX: I35.0 Nonrheumatic aortic (valve) stenosis (principal); E66.9 Obesity, unspecified; E78.5 Hyperlipidemia, unspecified; I10 Essential (primary) hypertension; Z86.73 Personal history of transient ischemic attack (TIA), and cerebral infarction without residual deficits; Z68.31 Body mass index [BMI] 31.0-31.9, adult; F17.210 Nicotine dependence, cigarettes, uncomplicated; Z79.82 Long term (current) use of aspirin | CPT/HCPCS: 99214 ==

== ENCOUNTER 2022-08-15 08:16 | Outpatient (CLI) | payer MEDICARE, MEDICAID, SELFPAY ==
--- NOTE | 2022-08-15 09:15 | USCV_ITS ---
Emily Little Age: 71 Gender: F : 1950 Exam Date: 08/15/2022 08:35 Ordering Phys: Merritt Teran M.D ([email or web address]) Technologist: DEE Exam Location: [facility] [place] Indication: ao stenosis/bicuspid valve BP: 142 / 75 HR: 73 Rhythm: Sinus Technical Quality: Adequate MEASUREMENTS (Male / Female) Normal Values 2D ECHO LV Diastolic Diameter PLAX 5.3 cm 4.2 - 5.9 / 3.9 - 5.3 cm LV Systolic Diameter PLAX 3.4 cm LV Chamber Size 5.2 cm IVS Diastolic Thickness 1.0 cm 0.6 - 1.0 / 0.6 - 0.9 cm IVS Systolic Thickness 1.6 cm LVPW Diastolic Thickness 0.7 cm 0.6 - 1.0 / 0.6 - 0.9 cm LVPW Systolic Thickness 0.9 cm RV Chamber Size 3.3 cm LVOT Diameter 2.3 cm LV Ejection Fraction 2D Teich 64.2 % LV Ejection Fraction MOD 2C 75.7 % LV Ejection Fraction 2C AL 75.1 % LA Diameter 4.0 cm LA Width 3.0 cm LA Height 5.0 cm RA Width 3.8 cm RA Height 4.3 cm Aorta at Sinotubular Diameter 2.3 cm IVC Diameter 2.0 cm M-MODE Aortic Annulus Diameter 3.1 cm LA Ao Ratio MM 1.5 MV E Point Septal Separation 0.3 cm DOPPLER AV Peak Velocity 285.7 cm/s LVOT Peak Velocity 96.0 cm/s AV Area Cont Eq vti 1.5 cm squared AV Area Cont Eq pk 1.4 cm squared MV Peak Velocity 123.0 cm/s MV Area PHT 4.3 cm squared Mitral E to A Ratio 1.0 MV E' Velocity 62.0 cm/s Mitral E to MV E' Ratio 13.3 Mitral E to LV E' Lateral Ratio 11.2 Mitral E to LV E' Septal Ratio 16.6 TR Peak Velocity 283.6 cm/s TR Peak Gradient 32.2 mmHg TR Mean Velocity 234.5 cm/s TR Mean Gradient 22.7 mmHg TR Velocity Time Integral 80.1 cm TV Peak E Velocity 124.0 cm/s Right Atrial Pressure 3.0 mmHg Pulmonary Artery Systolic Pressu 35.2 mmHg PV Peak Velocity 98.0 cm/s FINDINGS Left Ventricle Left ventricle is normal size. LV systolic function is normal with EF of 55 to 60%. No regional wall motion abnormalities are seen. Right Ventricle Normal in size and function Right Atrium Normal in size Left Atrium Normal in size Mitral Valve Structurally normal mitral valve. Trace mitral regurgitation. Aortic Valve Aortic valve is thickened. Moderate aortic stenosis with aortic valve area of 1.5cm2 and mean gradient across aortic valve of 19mmHg. Tricuspid Valve Mild tricuspid regurgitation. RVSP is 35 to 40 mmHg. This is consistent with mild pulmonary hypertension. Pulmonic Valve Not well visualized Pericardium Normal Aorta Normal in size IVC Appears to be normal CONCLUSIONS LV systolic function is normal with EF 55 to 60%. Trace mitral regurgitation Moderate aortic stenosis Mild tricuspid regurgitation Mild pulmonary hypertension Compared to prior echocardiogram from 09/2021, no significant changes are seen. Merritt Teran MD (Electronically Signed) Final Date: 30 Aug 2022 10:38 S
== END 2022-08-15 08:17 | disposition home or self-care (01) ==
LOC: RAD 08:24
PROVIDERS: PCP Family Medicine; Visit Provider Internal Medicine
DX: I35.0 Nonrheumatic aortic (valve) stenosis (principal); I34.0 Nonrheumatic mitral (valve) insufficiency; I07.1 Rheumatic tricuspid insufficiency; I27.20 Pulmonary hypertension, unspecified
CPT/HCPCS: 93306

== ENCOUNTER → 2022-10-15 08:31 | Outpatient (BNVA) | payer MEDICARE, MEDICAID, SELFPAY | PROVIDERS: PCP Family Medicine; Visit Provider Podiatrist Foot & Ankle Surgery | DX: E11.8 Type 2 diabetes mellitus with unspecified complications (principal); E11.42 Type 2 diabetes mellitus with diabetic polyneuropathy; L60.3 Nail dystrophy; I73.9 Peripheral vascular disease, unspecified; L60.8 Other nail disorders; Z79.4 Long term (current) use of insulin; Z79.84 Long term (current) use of oral hypoglycemic drugs | CPT/HCPCS: 11721 ==

== ENCOUNTER → 2023-01-12 08:17 | Outpatient (BNVA) | payer MEDICARE, MEDICAID, SELFPAY | PROVIDERS: PCP Family Medicine; Visit Provider Podiatrist Foot & Ankle Surgery | DX: L60.8 Other nail disorders (principal); E11.42 Type 2 diabetes mellitus with diabetic polyneuropathy; L60.3 Nail dystrophy; I73.9 Peripheral vascular disease, unspecified; Z79.84 Long term (current) use of oral hypoglycemic drugs; Z79.4 Long term (current) use of insulin | CPT/HCPCS: 11721 ==

== ENCOUNTER → 2023-03-18 15:19 | Outpatient (BNVA) | payer MEDICARE, MEDICAID, SELFPAY | PROVIDERS: PCP Family Medicine; Visit Provider Internal Medicine | DX: I35.0 Nonrheumatic aortic (valve) stenosis (principal); E78.5 Hyperlipidemia, unspecified; E66.9 Obesity, unspecified; Z68.31 Body mass index [BMI] 31.0-31.9, adult; I10 Essential (primary) hypertension; Z86.73 Personal history of transient ischemic attack (TIA), and cerebral infarction without residual deficits; F17.210 Nicotine dependence, cigarettes, uncomplicated | CPT/HCPCS: 99214 ==

== ENCOUNTER → 2023-04-28 08:17 | Outpatient (BNVA) | payer MEDICARE, SELFPAY | PROVIDERS: PCP Family Medicine; Visit Provider Podiatrist Foot & Ankle Surgery | DX: L60.8 Other nail disorders (principal); E11.42 Type 2 diabetes mellitus with diabetic polyneuropathy; L60.3 Nail dystrophy; I73.9 Peripheral vascular disease, unspecified; Z79.4 Long term (current) use of insulin; Z79.84 Long term (current) use of oral hypoglycemic drugs | CPT/HCPCS: 11721 ==

== ENCOUNTER → 2023-12-15 09:08 | Outpatient (BNVA) | payer MEDICARE, SELFPAY | PROVIDERS: PCP Family Medicine; Visit Provider Podiatrist Foot & Ankle Surgery | DX: L60.8 Other nail disorders (principal); E11.42 Type 2 diabetes mellitus with diabetic polyneuropathy; L60.3 Nail dystrophy; I73.9 Peripheral vascular disease, unspecified; Z79.4 Long term (current) use of insulin; Z79.84 Long term (current) use of oral hypoglycemic drugs | CPT/HCPCS: 11721 ==

== ENCOUNTER → 2023-12-16 13:43 | Outpatient (BNVA) | payer MEDICARE, SELFPAY | PROVIDERS: PCP Family Medicine; Visit Provider Internal Medicine | DX: I35.0 Nonrheumatic aortic (valve) stenosis (principal); I63.9 Cerebral infarction, unspecified; E66.9 Obesity, unspecified; E78.5 Hyperlipidemia, unspecified; I10 Essential (primary) hypertension; Z86.73 Personal history of transient ischemic attack (TIA), and cerebral infarction without residual deficits; Z68.32 Body mass index [BMI] 32.0-32.9, adult | CPT/HCPCS: 99214 ==

== ENCOUNTER 2024-01-21 06:20 | Outpatient (CLI) | payer MEDICARE, MEDICAID, SELFPAY ==
--- NOTE | 2024-01-21 07:00 | USCV_ITS ---
Emily Little Age: 73 Gender: F : 1950 Exam Date: 01/21/2024 06:34 Ordering Phys: Merritt Teran M.D ([email or web address]) Technologist: [place] [facility] [place]: murmur BP: 123 / 73 HR: 76 Rhythm: Sinus Technical Quality: Adequate MEASUREMENTS (Male / Female) Normal Values 2D ECHO LV Diastolic Diameter PLAX 4.2 cm 4.2 - 5.9 / 3.9 - 5.3 cm IVS Diastolic Thickness 0.9 cm 0.6 - 1.0 / 0.6 - 0.9 cm IVS Systolic Thickness 1.8 cm LVPW Diastolic Thickness 1.1 cm 0.6 - 1.0 / 0.6 - 0.9 cm LVPW Systolic Thickness 1.6 cm LVOT Diameter 2.0 cm LV Ejection Fraction 2D Teich 68.0 % LV Ejection Fraction MOD 4C 75.7 % LV Ejection Fraction MOD 2C 76.6 % LV Ejection Fraction 2C AL 76.6 % LA Diameter 3.2 cm RA Systolic Volume 4C AL 25.2 ml RA Systolic Volume 4C MOD 23.8 ml LA Sys Volume AL 34.7 cm cubed LA Sys Volume Index AL 18.0 cm cubed/m squared Aorta at Sinotubular Diameter 2.8 cm IVC Diameter 1.9 cm M-MODE LA Ao Ratio MM 1.1 AV Cusp Separation MM 1.9 cm DOPPLER AV Peak Velocity 276.0 cm/s LVOT Peak Velocity 86.0 cm/s AV Area Cont Eq vti 1.2 cm squared AV Area Cont Eq pk 1.0 cm squared MV Peak Velocity 111.0 cm/s MV Area PHT 3.4 cm squared Mitral E to A Ratio 0.9 TV Peak Velocity 207.5 cm/s TR Peak Velocity 285.0 cm/s TR Peak Gradient 32.5 mmHg TV Peak E Velocity 106.0 cm/s PV Peak Velocity 88.0 cm/s FINDINGS Left Ventricle Normal left ventricular size, systolic function and wall thickness, with no regional wall motion abnormalities. Left ventricular ejection fraction is estimated at 60 %. Grade I/IV diastolic dysfunction (abnormal relaxation filling pattern), normal to mildly elevated filling pressures. Right Ventricle The right ventricle is normal in size and function. Right Atrium The right atrium is normal in size. Left Atrium Moderately increased left atrial size. Mitral Valve Moderately thickened mitral valve. No mitral valve stenosis. Trace mitral valve regurgitation. Aortic Valve Moderate aortic valve calcification. Mild aortic valve stenosis, mean gradient 13.4 mmHg, EMILY 1.2 cm squared. Trace aortic valve regurgitation. Tricuspid Valve Structurally normal tricuspid valve without significant stenosis but mild to moderate regurgitation. Pulmonary artery systolic pressure is normal. Pulmonic Valve Structurally normal pulmonic valve without significant stenosis. There is no pulmonic regurgitation. Pericardium Normal pericardium without effusion. Aorta Normal ascending aorta dimension. IVC The inferior vena cava appears normal. CONCLUSIONS Normal left ventricular size, systolic function and wall thickness, with no regional wall motion abnormalities. Left ventricular ejection fraction is estimated at 60 %. Grade I/IV diastolic dysfunction (abnormal relaxation filling pattern), normal to mildly elevated filling pressures. Moderate aortic valve calcification. Mild aortic valve stenosis, mean gradient 13.4 mmHg, EMILY 1.2 cm squared. Trace aortic valve regurgitation. Structurally normal tricuspid valve without significant stenosis but mild to moderate regurgitation. Pulmonary artery systolic pressure is normal. There is no pericardial effusion. Right atrial pressure is around 5 mm of mercury. Harshad Dorsey MD (Electronically Signed) Final Date: 21 January 2024 09:32 S
== END 2024-01-21 06:21 | disposition home or self-care (01) ==
PROVIDERS: PCP Family Medicine; Visit Provider Internal Medicine
DX: I50.30 Unspecified diastolic (congestive) heart failure (principal); I51.7 Cardiomegaly; I34.81 Nonrheumatic mitral (valve) annulus calcification; I70.0 Atherosclerosis of aorta
CPT/HCPCS: 93306

== ENCOUNTER → 2024-03-15 10:30 | Outpatient (BNVA) | payer MEDICARE, MEDICAID, SELFPAY | PROVIDERS: PCP Family Medicine; Visit Provider Podiatrist Foot & Ankle Surgery | DX: L60.8 Other nail disorders (principal); E11.42 Type 2 diabetes mellitus with diabetic polyneuropathy; L60.3 Nail dystrophy; I73.9 Peripheral vascular disease, unspecified; Z79.4 Long term (current) use of insulin; Z79.84 Long term (current) use of oral hypoglycemic drugs | CPT/HCPCS: 11721 ==

== ENCOUNTER → 2024-06-14 10:53 | Outpatient (BNVA) | payer MEDICARE, MEDICAID, SELFPAY | PROVIDERS: PCP Family Medicine; Visit Provider Podiatrist Foot & Ankle Surgery | DX: E11.8 Type 2 diabetes mellitus with unspecified complications (principal); L60.8 Other nail disorders; E11.42 Type 2 diabetes mellitus with diabetic polyneuropathy; L60.3 Nail dystrophy; I73.9 Peripheral vascular disease, unspecified; Z79.84 Long term (current) use of oral hypoglycemic drugs; Z79.4 Long term (current) use of insulin | CPT/HCPCS: 99213 ==

== ENCOUNTER → 2024-09-14 13:24 | Outpatient (BNVA) | payer MEDICARE, MEDICAID, SELFPAY | PROVIDERS: PCP Family Medicine; Visit Provider Internal Medicine | DX: I35.0 Nonrheumatic aortic (valve) stenosis (principal); E66.9 Obesity, unspecified; Z68.29 Body mass index [BMI] 29.0-29.9, adult; E78.5 Hyperlipidemia, unspecified; I10 Essential (primary) hypertension; Z79.82 Long term (current) use of aspirin; Z86.73 Personal history of transient ischemic attack (TIA), and cerebral infarction without residual deficits; Z95.5 Presence of coronary angioplasty implant and graft; Z87.891 Personal history of nicotine dependence | CPT/HCPCS: 99214 ==